=== PATIENT | female | born 1965 | race Caucasian/White ===

== ENCOUNTER 2023-06-18 13:00 | Outpatient (AMB) | payer BC, SELFPAY ==
--- NOTE | 2023-06-18 13:04 | HO.SPINEOV ---
Intake Intake Visit Reasons: cervical radiculopathy Intake Note: Mrs. Vanegas is here today c/o neck pain. MRI done @ [facility]/Did not bring disc. Sports Writer Required: No Assessment & Plan Assessment & Plan (1) Numbness of right hand: Code(s): R20.0 - Anesthesia of skin Plan Dear Joseph, Thank you for referring Naomi to our office today. She is a pleasant 57-year-old female who comes in today with a chief complaint of neck pain and numbness in her right hand. She reports that her primary complaint is the numbness in her right hand which became noticeable/problematic roughly 2 months ago. She has dealt with posterior neck pain for the last 10 years and feels that is remained relatively consistent to what it normally is. She also reports some associated weakness in her right hand. She reports that this numbness is worse at night and relieves if she wakes up and shakes her hand out. She states that she has attempted to take gabapentin, and cannabis to alleviate her symptoms. These remedies have only been somewhat helpful for her. She has been to care consultant since the symptoms developed and feels their services are not helpful. She reports that she currently has a left hip joint that is ?[id number]-xu-[id number]? and due to be replaced. She recently had a right-sided total hip completed 3 years ago. PMH: High blood pressure, afib on eliquis, GERD, hyperlipidemia, osteoarthritis. Right hip replacement 3 years ago. Social hx: Patient is a former smoker. Uses cannabis daily, reports no other substance use. Medications: eliquis, aspirin, omeprazole, biotin, multivitamin, atorvastatin, lisinopril, magnesium, fish oil. Allergies: Penicillin Physical exam: The patient has 5/5 strength in her upper and lower extremities. She has some sensational changes reported as numbness to palpation over the ventral surface of the right hand. Her reflexes are 1+ diminished over bilateral knees, 2+ intact elsewhere. She ambulates without a spastic gait, but does favor her right side. (+) Tinel's at wrist on the right side. (-) Tinel's at wrist on left side. (+) Phalen's on right side. (-) Phalen's on left side. (-) Duvall's, (-) clonus. Imaging review: MRI of the cervical spine completed at [facility] shows mild central canal stenosis at C3-4, and moderate-severe central canal stenosis at C4-5 C5-6. There is some mild-moderate posterior disc bulging at C4-5, C5-6 (worse at C5-6). No central cord signal change noted. Impression: Naomi is a pleasant 57-year-old female who comes in today with a chief complaint of chronic longstanding neck pain and new onset right hand numbness for the last 2 months. She reports that her right hand numbness is worse at night and resolves when shaking out her right hand. She endorses some shooting pains up her ventral forearm on the right side originating from her hand, and has a positive Tinel sign on the right alongside a positive Phalen sign on the right. Her history and physical exam are classic for carpal tunnel on the right side. The confounding factor for addressing this diagnosis alone is that she has severe spinal canal stenosis of the cervical spine at the levels described above. Although she has this significant stenosis, she has no real symptoms aside from cervical neck pain that has been present for the last 10 years. When discussing this with her, she reports that her right hand numbness is her primary concern. She has never had an EMG completed, and I believe this is the best 1st course to take. I will put an order for to get an EMG to confirm right-sided carpal tunnel syndrome, and I will review her imaging with the attending neurosurgeon to determine a plan going forward. We did discuss the possibility of a right-sided carpal tunnel release, and also extensively reviewed a C4-5, C5-6 ACDF, and posterior decompression of the cervical spine. Thank you for allowing us to care for your patient. The total time spent with this visit with this patient was 45 minutes reviewing history, physical exam, MRI imaging review, and implementation of treatment plan or further diagnostic testing Gibson Ortiz MD,PhD [facility] Orders: Orders NE electromyogram (EMG) Today R20.0 - Anesthesia of skin Coding Level of Care Code New Pt Level 4 (98744) Diagnoses Numbness of right hand R20.0
== END 2023-06-18 13:41 | disposition home or self-care (01) ==
PROVIDERS: PCP Internal Medicine; Referring Provider Physician Assistant; Visit Provider Physician Assistant
DX: R20.0 Anesthesia of skin (principal)
CPT/HCPCS: 99204

== ENCOUNTER → 2023-06-18 13:00 | Outpatient (BNVA) | payer BC, SELFPAY | PROVIDERS: PCP Internal Medicine; Referring Provider Physician Assistant; Visit Provider Physician Assistant ==

== ENCOUNTER 2023-06-30 09:09 | Outpatient (REF) | payer BC, SELFPAY ==
--- NOTE | 2023-06-30 09:13 | EMG_ITS ---
Please see scanned EMG / Nerve Conduction Report. MTDD
== END 2023-06-30 09:10 | disposition home or self-care (01) ==
LOC: HO.NEURO 09:09
PROVIDERS: PCP Internal Medicine; Visit Provider Physician Assistant
DX: R20.0 Anesthesia of skin (principal)
CPT/HCPCS: 95885; 95910

== ENCOUNTER → 2023-08-19 13:13 | Day surgery (SDC) | payer BC, SELFPAY ==
[2023-08-16 16:30] VITALS: BMI 25.7
--- NOTE | 2023-08-18 08:55 | HO.ANESPROP2 ---
Documented by User: Debi Lara NP 08/18/23 09:01 HPI - Anesthesia Eval Consult details Narrative: 57yo F for Right Carpal Tunnel Release Cardiac cleared Eliquis for afib IA 2020 2/2 coronary vasospasm. No ischemia PMFSH Active Problems Active Problems: All Active Problems (Updated 08/16/23 @ 16:28 by Faith Sarah RN) Numbness of right hand (Acute) Past Medical History Medical History (Updated 08/16/23 @ 16:28 by Faith Sarah RN) IFG (impaired fasting glucose) NAFLD (nonalcoholic fatty liver disease) Arthritis Back pain Numbness of right hand FOSTER (dyspnea on exertion) Sleep apnea Elevated cholesterol HTN (hypertension) PAF (paroxysmal atrial fibrillation) Surgical History Surgical History (Updated 08/16/23 @ 16:26 by Faith Sarah RN) History of endometrial ablation Hx of cardiac catheterization History of total right hip replacement Hx of colonoscopy Social History Social History (Updated 08/16/23 @ 16:30 by Faith Sarah RN) Household Members: Significant Other Housing: House Are you a primary managed care coordinator to a significant other at home: No Do you presently have visiting nurse or other home services: No Comment: uses cane or walker at times Patient Tobacco Use Status: Current everyday Tobacco user Tobacco use type: Cigarette Cigarette Packs Per Day: 1 Cigarettes Per Day: 20.0 Years Smoked: 30+ Smoked in Last 30 Days: Yes e-Cigarette/Vaping Use: Never Used Use of substances other than those prescribed or required for medical reasons: Yes Substance Use Type Other:: Gummies at times Substance Use Frequency: Occasionally Have you been hit, kicked, punched, or otherwise hurt by someone within the past year? If so, by whom?: No Are you DNR?: No Advance Directives: No Advance Directives Information Provided: Yes Advance Directives on File: No Healthcare Proxy: No Recently lost weight without trying: No Nutrition Risks: No Nutritional Risk Meds Allergies Allergy/AdvReac Type Severity Reaction Status Date / Time hydrocodone [From Vicodin] AdvReac Severe Nausea and Verified 08/16/23 16:20 Vomiting amoxicillin [From Augmentin] AdvReac Intermediate Diarrhea Verified 08/16/23 16:20 clavulanic acid AdvReac Intermediate Diarrhea Verified 08/16/23 16:20 [From Augmentin] Penicillins AdvReac Intermediate Diarrhea Verified 08/16/23 16:20 Home Medications Medication Instructions Recorded Confirmed Last Taken Type albuterol sulfate 90 mcg/actuation 2 puff inhalation Q4H PRN wheezing 08/16/23 08/16/23 Unknown History aerosol inhaler apixaban 5 mg tablet (Eliquis) 5 mg PO BID 08/16/23 08/16/23 08/18/23 History 5 mg aspirin 81 mg tablet,delayed 81 mg PO DAILY 08/16/23 08/16/23 Unknown History release atorvastatin 80 mg tablet 80 mg PO BEDTIME 08/16/23 08/16/23 Unknown History diltiazem HCl 240 mg 240 mg PO DAILY 08/16/23 08/16/23 08/19/23 History capsule,extended release 24 hr lisinopril 10 mg tablet 10 mg PO BEDTIME 08/16/23 08/16/23 Unknown History lorazepam 0.5 mg tablet 0.5 mg PO DAILY PRN anxiety 08/16/23 08/16/23 08/18/23 History 0.5 mg nitroglycerin 0.4 mg sublingual 0.4 mg sublingual DIRECTED PRN 08/16/23 08/16/23 Unknown History tablet Chest Pain omega 4-ynx-omv-fish oil 1,000 mg 1 cap PO DAILY 08/16/23 08/16/23 08/13/23 History (120 mg-180 mg) capsule (Fish Oil) omeprazole 40 mg capsule,delayed 40 mg PO DAILY 08/16/23 08/16/23 08/19/23 History release Exam Height,Weight and Vital Signs: Height 5 ft 6 in Weight 72.121 kg Narrative Narrative: EKG 07/2023 NSR @ 69 ECHO 07/2023 1. Nml LV size, wall thickness, and systolic function. LVEF 55-60%. Nml regional wall motion. Nml LV diastolic function 2. RV nml in size and systolic function 3. No hemodynmically significant valve dysfunction 4. No significant change from 2021 Carotid duplex 01/2023 L ICA <50% stenosis R ICA 50-69% Elevated flow velocity in R subclavian artery although no visual stenosis Assessment and Plan Assessment Anesthesia Assessment: Chart Reviewed Documented by User: Franck Thomas MD 08/19/23 14:20 [facility] Past Medical History Medical History (Updated 08/16/23 @ 16:28 by Faith Sarah RN) IFG (impaired fasting glucose) NAFLD (nonalcoholic fatty liver disease) Arthritis Back pain Numbness of right hand FOSTRE (dyspnea on exertion) Sleep apnea Elevated cholesterol HTN (hypertension) PAF (paroxysmal atrial fibrillation) Family History Family history of problems with anesthesia: No Surgical History Surgical History (Updated 08/16/23 @ 16:26 by Faith Sarah RN) History of endometrial ablation Hx of cardiac catheterization History of total right hip replacement Hx of colonoscopy History of Problems with Anesthesia: No Social History Social History (Updated 08/16/23 @ 16:30 by Faith Sarah RN) Household Members: Significant Other Housing: House Are you a primary managed care coordinator to a significant other at home: No Do you presently have visiting nurse or other home services: No Comment: uses cane or walker at times Patient Tobacco Use Status: Current everyday Tobacco user Tobacco use type: Cigarette Cigarette Packs Per Day: 1 Cigarettes Per Day: 20.0 Years Smoked: 30+ Smoked in Last 30 Days: Yes e-Cigarette/Vaping Use: Never Used Use of substances other than those prescribed or required for medical reasons: Yes Substance Use Type Other:: Gummies at times Substance Use Frequency: Occasionally Have you been hit, kicked, punched, or otherwise hurt by someone within the past year? If so, by whom?: No Are you DNR?: No Advance Directives: No Advance Directives Information Provided: Yes Advance Directives on File: No Healthcare Proxy: No Recently lost weight without trying: No Nutrition Risks: No Nutritional Risk Meds Allergies Allergy/AdvReac Type Severity Reaction Status Date / Time hydrocodone [From Vicodin] AdvReac Severe Nausea and Verified 08/16/23 16:20 Vomiting amoxicillin [From Augmentin] AdvReac Intermediate Diarrhea Verified 08/16/23 16:20 clavulanic acid AdvReac Intermediate Diarrhea Verified 08/16/23 16:20 [From Augmentin] Penicillins AdvReac Intermediate Diarrhea Verified 08/16/23 16:20 Home Medications Medication Instructions Recorded Confirmed Last Taken Type albuterol sulfate 90 mcg/actuation 2 puff inhalation Q4H PRN wheezing 08/16/23 08/16/23 Unknown History aerosol inhaler apixaban 5 mg tablet (Eliquis) 5 mg PO BID 08/16/23 08/16/23 08/18/23 History 5 mg aspirin 81 mg tablet,delayed 81 mg PO DAILY 08/16/23 08/16/23 Unknown History release atorvastatin 80 mg tablet 80 mg PO BEDTIME 08/16/23 08/16/23 Unknown History diltiazem HCl 240 mg 240 mg PO DAILY 08/16/23 08/16/23 08/19/23 History capsule,extended release 24 hr lisinopril 10 mg tablet 10 mg PO BEDTIME 08/16/23 08/16/23 Unknown History lorazepam 0.5 mg tablet 0.5 mg PO DAILY PRN anxiety 08/16/23 08/16/23 08/18/23 History 0.5 mg nitroglycerin 0.4 mg sublingual 0.4 mg sublingual DIRECTED PRN 08/16/23 08/16/23 Unknown History tablet Chest Pain omega 0-pxc-olo-fish oil 1,000 mg 1 cap PO DAILY 08/16/23 08/16/23 08/13/23 History (120 mg-180 mg) capsule (Fish Oil) omeprazole 40 mg capsule,delayed 40 mg PO DAILY 08/16/23 08/16/23 08/19/23 History release Exam Airway Mallampati Class: I TM Dist: >3cm Neck ROM: Full Heart: rrr Lungs: cta b/l Assessment and Plan Assessment Anesthesia Assessment: Anesthesia Plan Discussed Final Anesthetic Review Family History of Problems with Anesthesia: No History of Problems with Anesthesia: No NPO: Yes ASA Class: III Final Preanesthetic Review: No Changes in Pt Med Stat, Meds/Allgs Chart Reviewed, Consent Obtained/Reviewed and Anes Risks/Benef Reviewed Patient Risk: Intermediate Procedure Risk: Low Anesthetic Plan Anesthetic Plan: MAC:
--- NOTE | 2023-08-19 07:19 | P.HPSUR_ITS ---
Pre-Procedural Eval Section A - 24 Hr Update-Section A only Date of Service: 08/19/23 The patient is an INPATIENT: No Changes since office visit: No Cold of Flu in the past 2 weeks, No New Medical Problems, No Changes in Medication and No Patient answered all questions The patient has been examined within 24 hours of the surgical procedure. The History & Physical has been completed within 30 days and I have reviewed it.: No Section B - Complete if H&P > 30 days Chief Complaint: Carpal tunnel syndrome,Anesthesia of skin Allergies: Allergies Allergy/AdvReac Type Severity Reaction Status Date / Time hydrocodone [From Vicodin] AdvReac Severe Nausea and Verified 08/16/23 16:20 Vomiting amoxicillin [From Augmentin] AdvReac Intermediate Diarrhea Verified 08/16/23 16:20 clavulanic acid AdvReac Intermediate Diarrhea Verified 08/16/23 16:20 [From Augmentin] Penicillins AdvReac Intermediate Diarrhea Verified 08/16/23 16:20 Review of Systems Sugical H&P ROS: Negative: Constitution, Cardiovascular, Respiratory, Neurological, Psychiatric, Hem-Onc, Allergic/Immunologic, Gastrointestinal, G enitourinary, Musculoskeletal, Integumentary, Endocrine and Eyes/Ears/Nose/Throat Exam Surgical H&P Exam: Not Evaluated: HEENT, Not Evaluated: Heart, Not Evaluated: Lungs, Not Evaluated: Extremities, Not Evaluated: Abdomen, Not Evaluated: Skin and Not Evaluated: Neurological Plan Diagnosis/Plan: Unchanged right carpal tunnel release Time Spent With Patient Time: Total time managing care of this patient today _5___ minutes.
[2023-08-19 13:30] VITALS: BP 150/66; PULSE 85; RESP 18; TEMP 36.3; O2SAT 98; BMI 26.6
[2023-08-19] MEDS: methocarbamoL 750 MG TABLET PO (13:45)
[2023-08-19] MEDS: Lactated Ringers 1,000 ML 100 ML IVCONT (13:53)
--- NOTE | 2023-08-19 16:43 | PM.DS ---
DS: Providers Provider Date of Service: 08/19/23 Primary care physician: Skyler Arce MD DS: Summary Time Attestation Discharge coordination time: Less than 30 minutes Quality: Safe Use of Opioids Does Pt have an Active Cancer Diagnosis on the Problem List?: No Quality: Stroke Does the patient have a stroke diagnosis?: No Physical Exam Vital Signs: Vital Signs: Last Vital Signs Temp 97.3 F 08/19/23 13:30 Pulse 85 08/19/23 13:30 Resp 18 08/19/23 13:30 BP 150/66 H 08/19/23 13:30 Pulse Ox 98 08/19/23 13:30 O2 Del Method Room Air 08/19/23 13:30 BMI result Body Mass Index 26.6 Discharge Plan Discharge Patient Disposition: Home, Self-Care Referrals: Skyler Arce MD [Primary Care Provider] - 1 Week Discharge Medications: Continued atorvastatin 80 mg tablet 80 mg PO BEDTIME diltiazem HCl 240 mg capsule,extended release 24hr 240 mg PO DAILY lorazepam 0.5 mg tablet 0.5 mg PO DAILY PRN (Reason: anxiety) lisinopril 10 mg tablet 10 mg PO BEDTIME nitroglycerin 0.4 mg tablet, sublingual 0.4 mg sublingual DIRECTED PRN (Reason: Chest Pain) albuterol sulfate 90 mcg/actuation HFA aerosol inhaler 2 puff inhalation Q4H PRN (Reason: wheezing) omeprazole 40 mg Capsule,Delayed Release(Dr/Ec) 40 mg PO DAILY omega 5-nbu-anc-fish oil [Fish Oil] 1,000 mg (120 mg-180 mg) Capsule 1 cap PO DAILY Held aspirin 81 mg tablet,delayed release (DR/EC) 81 mg PO DAILY Hold Instructions: Resume on 08/19/23. 48-72 hours or as directed by prescriber Eliquis 5 mg tablet 5 mg PO BID Hold Instructions: Resume on 08/19/23. 48-72 hours or as directed by prescriber Discharge Orders: Discharge Order (Routine); Ordered 08/19/23 Ordered By: Gibson Ledesma Diet: Advance to usual diet Activity on Discharge: As tolerated Activity Restrictions/Additional Instructions: Discharge Instructions You may remove your almita wrap on post op day 3, as well as the dressing underneath it. There are sutures in your wound, and you will need these removed 10-14 days after surgery. Please call the office to arrange this visit, . You can use your hand as much as you like, however, please avoid straining or heavy lifting. It will help swelling in your hand to keep it elevated when you are not using it. You can shower on post op day 1, but please keep wound dry. You can drive when you feel comfortable and are off narcotics. If you experience any signs of infection such as fever, chills or redness/discharge from your wound,please call office right away.
--- NOTE | 2023-08-19 16:45 | P.OP_ITS ---
Operative Note Operative Note Date of Service: 08/19/23 Narrative: Diagnosis: Right carpal tunnel syndrome Procedure: Right median nerve release Surgeon: Hoang Ortiz MD PhD Description procedure: This patient is suffering from bilateral carpal tunnel syndrome. Today we will address her right side. The patient was offered a decompression of the median nerve. The procedure complications were explained. The patient was consented. She was brought to the operating room, where moderate sedation was applied. Prepping and draping was done followed by time- out. Marcaine was injected into the mid volar region. A midvolar incision was made. The ligamentum carpi transversum was opened sharply until the median nerve became visible. A Metzenbaum scissor was used to decompress the median nerve proximally and distally over its trajectory. Significant compression was present. Hemostasis was done. The incision was closed with 3 interrupted sutures. A compressive ROSEMARIE wrap was used for hemostasis. All sponge and needle counts were correct. Patient was transported to the recovery room. Anesthesia: Moderate sedation and local anesthetic Blood loss: Minimal Complications: None Disposition: Discharge home
[2023-08-19 16:49] VITALS: BP 118/51; PULSE 81; RESP 17; TEMP 36.9; O2SAT 97
[2023-08-19 17:04] VITALS: BP 108/52; PULSE 78; RESP 18; TEMP 36.7; O2SAT 96
== END | disposition home or self-care (01) ==
PROVIDERS: PCP Internal Medicine; Visit Provider Neurological Surgery
PROC: (CPT 64721; principal; 2023-08-19 15:20)
DX: G56.01 Carpal tunnel syndrome, right upper limb (principal); R20.0 Anesthesia of skin; R53.1 Weakness; I10 Essential (primary) hypertension; I48.0 Paroxysmal atrial fibrillation; K76.0 Fatty (change of) liver, not elsewhere classified; R73.01 Impaired fasting glucose; R06.00 Dyspnea, unspecified; G47.30 Sleep apnea, unspecified; Z79.01 Long term (current) use of anticoagulants; Z88.0 Allergy status to penicillin; Z88.1 Allergy status to other antibiotic agents; Z88.8 Allergy status to other drugs, medicaments and biological substances; Z98.890 Other specified postprocedural states; F17.210 Nicotine dependence, cigarettes, uncomplicated
CPT/HCPCS: 64721; J0131; J0690; J2250; J2704; J3010

== ENCOUNTER → 2023-08-19 13:13 | Outpatient (BNV) | payer BC, SELFPAY | PROVIDERS: PCP Internal Medicine; Visit Provider Physician Assistant | DX: G56.01 Carpal tunnel syndrome, right upper limb (principal) | CPT/HCPCS: 64721; 99499 ==

== ENCOUNTER 2023-11-24 14:58 | Outpatient (AMB) | payer BC, SELFPAY ==
--- NOTE | 2023-11-24 15:13 | A.SPINEOV_ITS ---
Intake Visit Reasons: shooting pains and is painful in the incision site Intake Note: Ms. Vanegas is here today c/o shooting pains in the incision site controller Required: No Allergies hydrocodone [From Vicodin] Adverse Reaction (Severe, Verified 08/16/23 16:20) Nausea and Vomiting amoxicillin [From Augmentin] Adverse Reaction (Intermediate, Verified 08/16/23 16:20) Diarrhea clavulanic acid [From Augmentin] Adverse Reaction (Intermediate, Verified 08/16/23 16:20) Diarrhea Penicillins Adverse Reaction (Intermediate, Verified 08/16/23 16:20) Diarrhea Assessment & Plan Assessment & Plan (1) Carpal tunnel syndrome of right wrist: Code(s): G56.01 - Carpal tunnel syndrome, right upper limb Category: Medical Plan Dear colleague, On 11/24/2023, I saw for follow-up Naomi Vanegas. She underwent a right carpal tunnel release in August for numbness of her hands. Unfortunately, the decompression has not given any relief as of yet. She is wondering if he could come from her cervical spine. Clinically she states the pain goes into her hand and up to elbow in addition to the numbness of all fingers. I do think it is carpal tunnel syndrome but I will review the MRI of the cervical spine again and will call the patient with the results. Assuming that it is not coming from cervical spine, then I would recommend to repeat an EMG in about 2-3 months to see if there is ongoing compression of the median nerve in the carpal tunnel. Thank you for allowing me take care of your patient. Hoang Ortiz MD, PhD Spine Fellowship Trained Neurosurgeon Director, [facility] Coding Level of Care Code Est Pt Level 2 (27266) Diagnoses Carpal tunnel syndrome of right wrist G56.01
== END 2023-11-24 15:33 | disposition home or self-care (01) ==
LOC: HO.HNS 15:11
PROVIDERS: PCP Internal Medicine; Visit Provider Neurological Surgery
DX: G56.01 Carpal tunnel syndrome, right upper limb (principal)
CPT/HCPCS: 99212

== ENCOUNTER → 2023-11-24 15:11 | Outpatient (BNVA) | payer BC, SELFPAY | PROVIDERS: PCP Internal Medicine; Visit Provider Neurological Surgery ==

== ENCOUNTER 2023-12-07 09:47 | Outpatient (AMB) | payer BC, SELFPAY ==
--- NOTE | 2023-12-07 10:02 | A.OFFVIS_ITS ---
Intake Visit Reasons: N/P Left hip pain Intake Note: Naomi is a 57 year old female who presents as a new patient with Left hip pain. Patient reports her pain has been going on for about 7 years and is a 7 on the 1-10 pain scale. The patient states that she underwent right total hip replacement surgery approximately [address] Adilson Aggarwal. She reports minimal discomfort in her right hip. She does walk with a cane. She describes her left hip pain as sharp and severe in nature. The patient has dif ficulty walking even short distances because of her left hip pain. At this point her left hip pain is interfering with her activities of daily living and her ability to sleep well through the night. Allergies hydrocodone [From Vicodin] Adverse Reaction (Severe, Verified 12/07/23 10:02) Nausea and Vomiting amoxicillin [From Augmentin] Adverse Reaction (Intermediate, Verified 12/07/23 10:02) Diarrhea clavulanic acid [From Augmentin] Adverse Reaction (Intermediate, Verified 12/07/23 10:02) Diarrhea Penicillins Adverse Reaction (Intermediate, Verified 12/07/23 10:02) Diarrhea Medication List - Last Reconciled 12/07/23 by Anuj Navarro MD albuterol sulfate 90 mcg/actuation 2 puffs inhalation Q4H PRN apixaban (Eliquis) 5 mg PO BID aspirin 81 mg PO DAILY atorvastatin 80 mg PO BEDTIME diltiazem HCl CD 240 mg PO DAILY lisinopril 10 mg PO BEDTIME lorazepam 0.5 mg PO DAILY PRN nitroglycerin 0.4 mg sublingual DIRECTED PRN omega 7-gnd-lst-fish oil 1,000 mg (120 mg-180 mg) (Fish Oil) 1 cap PO DAILY omeprazole 40 mg PO DAILY PFSH Medical History IFG (impaired fasting glucose) NAFLD (nonalcoholic fatty liver disease) Arthritis Back pain Numbness of right hand FOSTER (dyspnea on exertion) Sleep apnea Elevated cholesterol HTN (hypertension) PAF (paroxysmal atrial fibrillation) Surgical History History of endometrial ablation Hx of cardiac catheterization History of total right hip replacement Hx of colonoscopy Social History Household Members: Significant Other Housing: House Are you a primary career services director to a significant other at home: No Do you presently have visiting nurse or other home services: No Comment: uses cane or walker at times Patient Tobacco Use Status: Current everyday Tobacco user Tobacco use type: Cigarette Cigarette Packs Per Day: 1 Cigarettes Per Day: 20.0 Years Smoked: 30+ e-Cigarette/Vaping Use: Never Used Physical Exam Const Other: Well-nourished well-developed very friendly female awake alert and oriented x3 in no acute distress Extrem Other: Bilateral lower extremity examination shows good capillary refill, no skin lesions noted, normal sensation light touch Left hip examination shows decreased range of motion when compared to her right hip, pain with range of motion, no tenderness over her bursa Results Reviewed Results Reviewed: X-rays of the patient's left hip taken today show end-stage degenerative joint disease with grade 4 [id number] arthritis, subchondral sclerosis, osteophyte formation, no acute bony abnormalities Assessment & Plan Assessment & Plan (1) Arthritis of left hip: Code(s): M16.12 - Unilateral primary osteoarthritis, left hip Category: Medical Plan Ms. Vanegas presents with left hip pain due to end-stage degenerative joint disease. I had a lengthy discussion with the patient regarding the treatment options. At this point she has failed continued non operative treatments. The risks and benefits of left total hip replacement surgery were discussed at length with the patient. The patient is interested in proceeding with surgery. Thus, I will arrange for her to have a follow-up appointment with my partner, Dr. Westbrook, who performs this type of surgery. She will follow-up as instructed. Feel free to call me at any time should questions regarding her orthopedic management arise. I spent 22 minutes in reviewing the patient's records and imaging studies, seeing the patient and documenting in the medical record. Orders: Orders XR hip LT min 2V Today M25.552 - Pain in left hip Coding Level of Care Code New Pt Level 3 (41804) Diagnoses Arthritis of left hip M16.12
== END 2023-12-07 10:16 | disposition home or self-care (01) ==
PROVIDERS: PCP Internal Medicine; Visit Provider Orthopaedic Surgery
DX: M16.12 Unilateral primary osteoarthritis, left hip (principal)
CPT/HCPCS: 99204

== ENCOUNTER 2023-12-07 10:07 | Outpatient (REF) | payer BC, SELFPAY ==
--- NOTE | ~2023-12-07 | XR_ITS ---
EXAMINATION: XR HIP, LEFT CLINICAL INFORMATION: Pain in left hip COMPARISON: None available. TECHNIQUE: AP pelvis and single AP view of each hip FINDINGS: The bones are diffusely demineralized. There is a right total hip prosthesis with the acetabular component secured with a screw. No evidence of periprosthetic lucency. No fracture. There is severe narrowing of the superior-lateral aspect of the left hip with [id number] appearance and marked subchondral sclerosis in each articular surface. Heterotopic bone formation is noted lateral to the acetabulum. The sacroiliac joints and pubic symphysis are within normal limits. Several phleboliths are seen within the bladder. XR/XR hip LT min 2V IMPRESSION: 1. Right total hip prosthesis without evidence of hardware complication. 2. Severe osteoarthritis of the left hip.
== END 2023-12-07 10:08 | disposition home or self-care (01) ==
LOC: HO.HOSX 10:07
PROVIDERS: Visit Provider Orthopaedic Surgery
DX: M16.12 Unilateral primary osteoarthritis, left hip (principal)
CPT/HCPCS: 73502

== ENCOUNTER 2023-12-24 10:43 | Outpatient (AMB) | payer BC, SELFPAY ==
--- NOTE | 2023-12-24 10:45 | A.OFFVIS_ITS ---
Vital Signs 12/24/23 10:53 Height 5 ft 6 in Intake Visit Reasons: OV-Left hip pain-discuss hip replacement Intake Note: Naomi is a 57 year old female who presents today with a cane for a follow up visit for Left hip pain. Patient reports for about 20 years she's been having on going aching pain in the left hip. She states she the pain is affecting her daily living tasks. Numbness and tingling in the groin area which is radiating to the posterior aspect of her left hip and her left knee. She would like to discuss surgery. Hx of Right STEVE October of 2018. Hx of vaso spasms. Allergies hydrocodone [From Vicodin] Adverse Reaction (Severe, Verified 12/24/23 10:52) Nausea and Vomiting amoxicillin [From Augmentin] Adverse Reaction (Intermediate, Verified 12/24/23 10:52) Diarrhea clavulanic acid [From Augmentin] Adverse Reaction (Intermediate, Verified 12/24/23 10:52) Diarrhea Penicillins Adverse Reaction (Intermediate, Verified 12/24/23 10:52) Diarrhea HPI HPI OV-Left hip pain-discuss hip replacement: Details: Naomi is a 57 year old female who presents today with a cane for a follow up vis it for Left hip pain. Patient reports for about 20 years she's been having on going aching pain in the left hip. She states she the pain is affecting her daily living tasks. Numbness and tingling in the groin area which is radiating to the posterior aspect of her left hip and her left knee. She would like to discuss surgery. Hx of Right STEVE October of 2018. [facility] Medical History IFG (impaired fasting glucose) NAFLD (nonalcoholic fatty liver disease) Arthritis Back pain Numbness of right hand FOSTER (dyspnea on exertion) Sleep apnea Elevated cholesterol HTN (hypertension) PAF (paroxysmal atrial fibrillation) Surgical History History of endometrial ablation Hx of cardiac catheterization History of total right hip replacement Hx of colonoscopy Social History (Updated 12/24/23 @ 10:54 by MOUNIKA Pena) Household Members: Significant Other Housing: House Are you a primary hospice patient care secretary to a significant other at home: No Do you presently have visiting nurse or other home services: No Comment: uses cane or walker at times Patient Tobacco Use Status: Current everyday Tobacco user Tobacco use type: Cigarette Cigarette Packs Per Day: 1 Cigarettes Per Day: 20.0 Years Smoked: 30+ e-Cigarette/Vaping Use: Never Used Current occupational status: unemployed Physical Exam Extrem Other: Left hip with severely restricted range of motion. She has a 2+ dorsalis pedis pulse but severe gait antalgia and absolutely no internal rotation when flexed to 90 degrees. Her right hip has no pain with range of motion. Results Reviewed Results Reviewed: Radiographs were reviewed. There is a right total hip arthroplasty in adequate position and her left hip has severe osteoarthritis. Assessment & Plan Assessment & Plan (1) Arthritis of left hip: Code(s): M16.12 - Unilateral primary osteoarthritis, left hip Category: Medical Plan: This is a pleasant 57-year-old female with severe osteoarthritis of the left hip. She needs a hip replacement. She can not walk and can not be functional. She has pain and the quality of her life is severely diminished. She had a successful right hip replacement about 5 years ago. Of note she smokes and has a history of cardiac disease so she will need help with smoking cessation and need cardiac clearance. I discussed this with her. She is in agreement. In addition I discussed the risks, benefits and alternatives of arthroplasty including, but not limited to infection, pain, instability, fracture, need for further surgery as well as limb length discrepancy. I made a special note to describe the risk of limb length discrepancy with her because her right hip is marginally short already so I think it is likely that her left hip will be slightly long postoperatively. I also discussed the medical risks associated with surgery especially given her history of cardiac disease and smoking. She expressed understanding and we will proceed forward accordingly. Coding Level of Care Code Est Pt Level 4 (17017) Diagnoses Arthritis of left hip M16.12
== END 2023-12-24 11:05 | disposition home or self-care (01) ==
PROVIDERS: PCP Internal Medicine; Visit Provider Orthopaedic Surgery
DX: M16.12 Unilateral primary osteoarthritis, left hip (principal)
CPT/HCPCS: 99214

== ENCOUNTER 2024-07-17 08:44 | Outpatient (REF) | payer MEDICARE, MEDICAID, SELFPAY ==
--- NOTE | ~2024-07-17 | XR_ITS ---
EXAMINATION: XR PELVIS 1-2 VIEWS HISTORY: M25.559 - Pain in unspecified hip COMPARISON: Comparison is made with the prior examination dated 12/07/2023. FINDINGS: 3 AP views of the pelvis are submitted. The bones are osteopenic. The patient is again noted to be status post right total hip arthroplasty. The orthopedic hardware is unchanged in position. There is no radiographic evidence of loosening. There is severe osteoarthritis of the left hip with joint space narrowing, subchondral sclerosis, and subchondral cyst formation. There is also remodeling of the femoral head has been slight progression since the prior study. There is no fracture or dislocation. The soft tissues are unremarkable. XR/XR pelvis 1-2V IMPRESSION: Status post right total hip arthroplasty. Severe osteoarthritis of the left hip as described, with progression since the prior study. Electronically signed by: Remington Cm MD 07/19/2024 03:53 PM KYLE
== END 2024-07-17 08:45 | disposition home or self-care (01) ==
LOC: HO.HOSX 08:44
PROVIDERS: Visit Provider Orthopaedic Surgery
DX: M16.12 Unilateral primary osteoarthritis, left hip (principal); Z96.641 Presence of right artificial hip joint
CPT/HCPCS: 72170; 99212

== ENCOUNTER 2024-07-17 10:40 | Outpatient (AMB) | payer MEDICARE, MEDICAID, SELFPAY ==
[2024-07-17 11:01] VITALS: BMI 29.0
--- NOTE | 2024-07-17 11:01 | A.OFFVIS_ITS ---
Vital Signs 07/17/24 11:01 Height 5 ft 6 in Weight 180 lb BMI 29.0 Intake Visit Reasons: OV - Discuss L STEVE Booked 09/26/24 Intake Note: Naomi is a 58 year old female who present today for a follow up of her Left Hip OA to discuss Left STEVE. She is currently booked for 09/27/23,Previously discussed Smoking cessation. Patient reports that she is working on smoking cessation, she has decreased her smoking but is still intaking about 1 pack a day. She expresses concerns for her surgery arrival time as it is cerrently 10:10AM, she explains that she wakes up at 3am and without being able to eat or drink after midnight that it would be a nightmare Hx of Right STEVE October of 2018. Hx of vaso spasms. Allergies hydrocodone [From Vicodin] Adverse Reaction (Severe, Verified 12/24/23 10:52) Nausea and Vomiting amoxicillin [From Augmentin] Adverse Reaction (Intermediate, Verified 12/24/23 10:52) Diarrhea clavulanic acid [From Augmentin] Adverse Reaction (Intermediate, Verified 12/24/23 10:52) Diarrhea Penicillins Adverse Reaction (Intermediate, Verified 12/24/23 10:52) Diarrhea HPI HPI OV - Discuss L STEVE Booked 09/26/24: Details: Naomi is a 58 year old female who present today for a follow up of her Left Hip OA to discuss Left STEVE. She is currently booked for 09/27/23,Previously discussed Smoking cessation. Patient reports that she is working on smoking cessation, she has decreased her smoking but is still intaking less than a pack a day. She can not walk without pain. She limps everywhere. She feels quality of her life is diminished. She is scheduled for hip replacement in a proximally 2 and half months. [facility] Medical History IFG (impaired fasting glucose) NAFLD (nonalcoholic fatty liver disease) Arthritis Back pain Numbness of right hand FOSTER (dyspnea on exertion) Sleep apnea Elevated cholesterol HTN (hypertension) PAF (paroxysmal atrial fibrillation) Surgical History History of endometrial ablation Hx of cardiac catheterization History of total right hip replacement Hx of colonoscopy Social History (Updated 12/24/23 @ 10:54 by MOUNIKA Pena) Household Members: Significant Other Housing: House Are you a primary skin care therapist to a significant other at home: No Do you presently have visiting nurse or other home services: No Comment: uses cane or walker at times Patient Tobacco Use Status: Current everyday Tobacco user Tobacco use type: Cigarette Cigarette Packs Per Day: 1 Cigarettes Per Day: 20.0 Years Smoked: 30+ e-Cigarette/Vaping Use: Never Used Current occupational status: unemployed Physical Exam Vital Signs: BMI result Body Mass Index 29.0 Extrem Other: Left hip with severely restricted range of motion. She has a 2+ dorsalis pedis pulse but severe gait antalgia and absolutely no internal rotation when flexed to 90 degrees. Her right hip has no pain with range of motion. Results Reviewed Results Reviewed: I personally reviewed relevant radiographs. Severe left hip osteoarthritis Assessment & Plan Assessment & Plan (1) Arthritis of left hip: Code(s): M16.12 - Unilateral primary osteoarthritis, left hip Category: Medical Plan: This is a 50-year-old woman with severe arthritis of the left hip that is affecting her ability to ambulate and the quality of her life. She has decreasing smoking slowly but steadily. She has a history of cardiac catheterization. She needs to continue to decrease her tobacco usage. We will see her back in about 6 weeks' time. Orders: Orders XR pelvis 1-2V Today M25.559 - Pain in unspecified hip Coding Level of Care Code Est Pt Level 3 (12082) Diagnoses Arthritis of left hip M16.12
== END 2024-07-17 11:27 | disposition home or self-care (01) ==
PROVIDERS: PCP Internal Medicine; Visit Provider Orthopaedic Surgery
DX: M16.12 Unilateral primary osteoarthritis, left hip (principal)
CPT/HCPCS: 99213

== ENCOUNTER → 2024-08-29 08:30 | Outpatient (BNVA) | payer MEDICARE, MEDICAID, SELFPAY | DX: Z01.818 Encounter for other preprocedural examination (principal) ==

== ENCOUNTER 2024-09-21 08:37 | Outpatient (REF) | payer MEDICARE, MEDICAID, SELFPAY ==
--- NOTE | ~2024-09-21 | XR_ITS ---
EXAMINATION: XR HIP 2 OR MORE VIEWS LEFT HISTORY: M25.552 - Pain in left hip COMPARISON: Comparison is made with the prior examination of the pelvis dated 07/17/2024. FINDINGS: A single AP view of the pelvis and two views of the left hip are submitted. Osseous mineralization is normal. There is no fracture or dislocation. There is severe osteoarthritis with joint space narrowing, osteophyte formation, subchondral cyst formation, and remodeling of the femoral head. The patient is status post right total hip arthroplasty. The soft tissues are unremarkable. XR/XR hip LT min 2V IMPRESSION: Severe osteoarthritis as described. Electronically signed by: Remington Cm MD 09/21/2024 03:21 PM EDT
== END 2024-09-21 08:38 | disposition home or self-care (01) ==
LOC: HO.HOSX 08:37
PROVIDERS: Visit Provider Physician Assistant
DX: Z01.818 Encounter for other preprocedural examination (principal); M25.552 Pain in left hip; M16.12 Unilateral primary osteoarthritis, left hip
CPT/HCPCS: 73502

== ENCOUNTER 2024-09-21 09:04 | Outpatient (AMB) | payer MEDICARE, MEDICAID, SELFPAY ==
[2024-09-21 09:18] VITALS: BMI 29.0
--- NOTE | 2024-09-21 09:18 | A.OFFVIS_ITS ---
Vital Signs 09/21/24 09:18 Height 5 ft 6 in Weight 180 lb BMI 29.0 Intake Visit Reasons: Pre-Op: L STEVE w/NE 09/26/24 Intake Note: Naomi is a 58 year old female who presents today for a preoperative LT STEVE, DOS 09/26/24. Pain management agreement reviewed and signed. Allergies hydrocodone [From Vicodin] Adverse Reaction (Severe, Verified 09/21/24 09:25) Nausea and Vomiting amoxicillin [From Augmentin] Adverse Reaction (Intermediate, Verified 09/21/24 09:25) Diarrhea clavulanic acid [From Augmentin] Adverse Reaction (Intermediate, Verified 09/21/24 09:25) Diarrhea Penicillins Adverse Reaction (Intermediate, Verified 09/21/24 09:25) Diarrhea Medication List - Last Reconciled 09/21/24 by Jocelyn Felipe PA-C albuterol sulfate 90 mcg/actuation 2 puffs inhalation Q4H PRN apixaban (Eliquis) 5 mg PO BID aspirin 81 mg PO QAM atorvastatin 80 mg PO BEDTIME biotin 1,000 mcg PO DAILY zclhfvb-aemvzhean-fmjr 333-133-5 mg 1 tab PO DAILY cholecalciferol (vitamin D3) (Vitamin D3) 50 mcg PO DAILY diltiazem HCl CD 240 mg PO QAM lactobacillus combination no.4 (Probiotic) 3,000 mmu cells PO DAILY lisinopril 10 mg PO BEDTIME lorazepam 0.5 mg PO DAILY PRN multivitamin 1 tab PO QAM nicotine 1 patch topical DAILY nitroglycerin 0.4 mg sublingual DIRECTED PRN omega 6-rjk-skj-fish oil 1,000 (120-180) mg (Fish Oil) 1 cap PO QAM omeprazole 40 mg PO QAM [Raised toilet seat duration - 99 days] walker Folding Front wheeled walker HPI Comments Details: Ms Montez presents to the office today for preop visit. She is scheduled for left total hip arthroplasty with Dr. Westbrook. She continues to have ongoing pain and difficulty with ambulation in the left hip, which is affecting her quality of life; therefore, she has elected to move forward with surgery. [facility] Medical History (Updated 08/28/24 @ 12:49 by Marielle Vasquez RN) Cervical spinal stenosis PVD (peripheral vascular disease) Family history of anesthesia complication Pre-diabetes GERD (gastroesophageal reflux disease) PAF (paroxysmal atrial fibrillation) NSTEMI (non-ST elevated myocardial infarction) IFG (impaired fasting glucose) NAFLD (nonalcoholic fatty liver disease) Arthritis Back pain Numbness of right hand FOSTER (dyspnea on exertion) Sleep apnea Elevated cholesterol HTN (hypertension) Surgical History History of carpal tunnel release History of endometrial ablation Hx of cardiac catheterization History of total right hip replacement Hx of colonoscopy Social History Household Members: Significant Other Housing: House Are you a primary senior care specialist to a significant other at home: No Do you presently have visiting nurse or other home services: No Comment: uses cane or walker at times Patient Tobacco Use Status: Current everyday Tobacco user Tobacco use type: Cigarette Cigarette Packs Per Day: 1 Cigarettes Per Day: 20.0 Years Smoked: 42 e-Cigarette/Vaping Use: Never Used Current occupational status: unemployed Review of Systems Const All systems reviewed & are unremarkable except as noted in HPI and below Physical Exam Vital Signs: BMI result Body Mass Index 29.0 Const General: cooperative, healthy appearing, comfortable, no acute distress, well developed and alert Orientation/consciousness: patient oriented x3 HEENT Head: Yes normal to inspection, Yes normocephalic and Yes atraumatic Eyes General: appearance normal, both eyes and all related structures Neck Neck: Yes normal visual inspection and Yes no lymphadenopathy Resp Effort & Inspection: normal respiratory effort and able to speak in complete sentences Cardio Rate: regular rate Peripheral pulses: Peripheral pulses 2+ throughout GI Inspection: Yes normal to inspection Palpation (GI): Soft to palpation Skin General skin exam: no rashes or lesions noted Neuro General: patient oriented x3 Extrem Other: Left hip with severely restricted range of motion. She has a 2+ dorsalis pedis pulse but severe gait antalgia and absolutely no internal rotation when flexed to 90 degrees. Psych Appearance: grossly normal Mental Status: mental status grossly normal Results Reviewed Results Reviewed: Xrays were obtained in the office today and personally reviewed by me of the left hip for surgical planning Assessment & Plan Assessment & Plan (1) Arthritis of left hip: Code(s): M16.12 - Unilateral primary osteoarthritis, left hip Category: Medical Plan: I discussed in detail the procedure and what to expect pre and post operatively. We discussed the risks, benefits and alternatives to the surgery as well as the rehabilitation course. The risks; which include, but are not limited to infection, bleeding, nerve injury, ongoing pain, swelling, and stiffness, olivia operative risk of injury to bones and soft tissues, and blood clots. I?ve answered all questions and with their understanding they have consented to move forward with Left total hip arthroplasty with Dr. Westbrook She will hold Eliquis 48 hrs pre op, cont her low dose ASA Orders: Orders XR hip LT min 2V Today M25.552 - Pain in left hip PT Evaluation and Treatment Today Z96.642 - Presence of left artificial hip joint Coding Level of Care Code Est Pt Level 3 (91151) Complex EM visit Add On G2211 Diagnoses Arthritis of left hip M16.12
== END 2024-09-21 11:14 | disposition home or self-care (01) ==
LOC: HO.HOS 09:04
PROVIDERS: Visit Provider Physician Assistant
DX: M16.12 Unilateral primary osteoarthritis, left hip (principal)
CPT/HCPCS: 99024

== ENCOUNTER → 2024-09-21 09:12 | Outpatient (BNV) | payer MEDICARE, MEDICAID, SELFPAY | PROVIDERS: Visit Provider Radiology Diagnostic Radiology | DX: M16.12 Unilateral primary osteoarthritis, left hip (principal) | CPT/HCPCS: 73502 ==

== ENCOUNTER 2024-09-26 09:59 | Day surgery (SDC) | payer MEDICARE, MEDICAID, SELFPAY ==
[2024-08-28 12:15] VITALS: BP 109/55; PULSE 88; RESP 20; O2SAT 98; BMI 30.2
--- NOTE | 2024-08-28 12:32 | HO.ANESPROP2 ---
Documented by User: Debi Lara NP 08/28/24 12:43 HPI - Anesthesia Eval Consult details Narrative: 58yo F for Left Hip Total Replacement, 09/26/24 No recent illness No CP/SOB. FOSTER at baseline d/t skilled nursing smoking Cardiac optimized. Follows [facility] for: Carotid artery stenosis: moderate and unchanged. Routine surveillence 01/2025 PAF: Eliquis, diltiazem Hx NSTEMI 2020: Stable CAD HTN: stable, increased with pain Smoker: 1/2 ppd x 40+ years LORENA: No CPAP GERD: PPI controls PMFSH Active Problems Active Problems: All Active Problems Arthritis of left hip (Acute) Left hip pain (Acute) Carpal tunnel syndrome of right wrist (Acute) Numbness of right hand (Acute) Past Medical History Medical History Cervical spinal stenosis PVD (peripheral vascular disease) Family history of anesthesia complication Pre-diabetes GERD (gastroesophageal reflux disease) PAF (paroxysmal atrial fibrillation) NSTEMI (non-ST elevated myocardial infarction) IFG (impaired fasting glucose) NAFLD (nonalcoholic fatty liver disease) Arthritis Back pain Numbness of right hand FOSTER (dyspnea on exertion) Sleep apnea Elevated cholesterol HTN (hypertension) Family History Family history of problems with anesthesia: No Surgical History Surgical History History of carpal tunnel release History of endometrial ablation Hx of cardiac catheterization History of total right hip replacement Hx of colonoscopy History of Problems with Anesthesia: No Social History Social History Household Members: Significant Other Housing: House Are you a primary child care lead teacher to a significant other at home: No Do you presently have visiting nurse or other home services: No Comment: uses cane or walker at times Patient Tobacco Use Status: Current everyday Tobacco user Tobacco use type: Cigarette Cigarette Packs Per Day: 1 Cigarettes Per Day: 20.0 Years Smoked: 42 Smoked in Last 30 Days: Yes e-Cigarette/Vaping Use: Never Used Patient Interested in Nicotine Replacement: Yes Use of substances other than those prescribed or required for medical reasons: Yes Substance Use Type Other:: powder Substance Use Frequency: Occasionally Have you been hit, kicked, punched, or otherwise hurt by someone within the past year? If so, by whom?: No Spiritual Healthcare Practices: none Rastafarian Healthcare Practices: Islam-non practicing Cultural Healthcare Practices: none Are you DNR?: No Advance Directives: No Advance Directives Information Provided: Yes Advance Directives on File: No Recently lost weight without trying: No Eating poorly because of decreased appetite: No Nutrition Risks: No Nutritional Risk FDLMP: n/a Poor oral hygiene: No (one chipped tooth-upper front-left) Current occupational status: unemployed Meds Allergies Allergy/AdvReac Type Severity Reaction Status Date / Time hydrocodone [From Vicodin] AdvReac Severe Nausea and Verified 09/21/24 09:25 Vomiting amoxicillin [From Augmentin] AdvReac Intermediate Diarrhea Verified 09/21/24 09:25 clavulanic acid AdvReac Intermediate Diarrhea Verified 09/21/24 09:25 [From Augmentin] Penicillins AdvReac Intermediate Diarrhea Verified 09/21/24 09:25 Home Medications ?Medication ?Instructions ?Recorded ?Confirmed ?Last Taken ?Type albuterol sulfate 90 mcg/actuation 2 puff inhalation Q4H PRN wheezing 08/16/23 09/21/24 09/26/24 History aerosol inhaler apixaban 5 mg tablet (Eliquis) 5 mg PO BID 08/16/23 09/21/24 09/23/24 History aspirin 81 mg tablet,delayed 81 mg PO QAM 08/16/23 09/21/24 09/26/24 History release atorvastatin 80 mg tablet 80 mg PO BEDTIME 08/16/23 09/21/24 09/25/24 History diltiazem HCl 240 mg 240 mg PO QAM 08/16/23 09/21/24 09/26/24 History capsule,extended release 24 hr lisinopril 10 mg tablet 10 mg PO BEDTIME 08/16/23 09/21/24 09/25/24 History lorazepam 0.5 mg tablet 0.5 mg PO DAILY PRN anxiety 08/16/23 08/29/24 09/25/24 History nitroglycerin 0.4 mg sublingual 0.4 mg sublingual DIRECTED PRN 08/16/23 08/29/24 Unknown History tablet Chest Pain omega 0-gem-rhp-fish oil 1,000 mg 1 cap PO QAM 0208/29/24 09/17/24 History (120 mg-180 mg) capsule (Fish Oil) omeprazole 40 mg capsule,delayed 40 mg PO QAM 08/16/23 08/29/24 09/26/24 History release nicotine 21 mg/24 hr daily 1 patch topical DAILY 12/24/23 08/29/24 09/26/24 History transdermal patch biotin 1,000 mcg chewable tablet 1,000 mcg PO DAILY 08/28/24 08/29/24 09/17/24 History phuvusl-pznijqirn-uwov 333 mg-133 1 tab PO DAILY 08/28/24 08/29/24 09/17/24 History mg-5 mg tablet cholecalciferol (vitamin D3) 50 50 mcg PO DAILY 08/28/24 08/29/24 09/17/24 History mcg (2,000 unit) tablet (Vitamin D3) lactobacillus combination no.4 3 3,000 mmu cells PO DAILY 08/28/24 08/29/24 09/17/24 History billion cell capsule (Probiotic) multivitamin 1 tab PO QAM 08/28/24 08/29/24 09/17/24 History Exam Height,Weight and Vital Signs: Height 5 ft 6 in Weight 84.822 kg Last Vital Signs Pulse 88 08/28/24 12:15 Resp 20 08/28/24 12:15 BP 109/55 L 08/28/24 12:15 Pulse Ox 98 08/28/24 12:15 O2 Del Method Room Air 08/28/24 12:15 Narrative Narrative: EKG 07/2024 NSR @ 70 Airway TM Dist: >3cm Neck ROM: Limited (Cspine stenosis, no surgery) Loose/Missing/Broken Teeth: Yes (#9 small chip) Heart: RRR Lungs: CTAB Assessment and Plan Assessment Anesthesia Assessment: Anesthesia Plan Discussed, Smoking Cess. Discussed and PAT Visit Final Anesthetic Review Family History of Problems with Anesthesia: No History of Problems with Anesthesia: No Documented by User: Ava Christina MD 09/26/24 14:54 [facility] Past Medical History Medical History Cervical spinal stenosis PVD (peripheral vascular disease) Family history of anesthesia complication Pre-diabetes GERD (gastroesophageal reflux disease) PAF (paroxysmal atrial fibrillation) NSTEMI (non-ST elevated myocardial infarction) IFG (impaired fasting glucose) NAFLD (nonalcoholic fatty liver disease) Arthritis Back pain Numbness of right hand FOSTER (dyspnea on exertion) Sleep apnea Elevated cholesterol HTN (hypertension) Surgical History Surgical History History of carpal tunnel release History of endometrial ablation Hx of cardiac catheterization History of total right hip replacement Hx of colonoscopy Social History Social History Household Members: Significant Other Housing: House Are you a primary child care lead teacher to a significant other at home: No Do you presently have visiting nurse or other home services: No Comment: uses cane or walker at times Patient Tobacco Use Status: Current everyday Tobacco user Tobacco use type: Cigarette Cigarette Packs Per Day: 1 Cigarettes Per Day: 20.0 Years Smoked: 42 Smoked in Last 30 Days: Yes e-Cigarette/Vaping Use: Never Used Patient Interested in Nicotine Replacement: Yes Use of substances other than those prescribed or required for medical reasons: Yes Substance Use Type Other:: powder Substance Use Frequency: Occasionally Have you been hit, kicked, punched, or otherwise hurt by someone within the past year? If so, by whom?: No Spiritual Healthcare Practices: none Rastafarian Healthcare Practices: Islam-non practicing Cultural Healthcare Practices: none Are you DNR?: No Advance Directives: No Advance Directives Information Provided: Yes Advance Directives on File: No Recently lost weight without trying: No Eating poorly because of decreased appetite: No Nutrition Risks: No Nutritional Risk FDLMP: n/a Poor oral hygiene: No (one chipped tooth-upper front-left) Current occupational status: unemployed Meds Allergies Allergy/AdvReac Type Severity Reaction Status Date / Time hydrocodone [From Vicodin] AdvReac Severe Nausea and Verified 09/21/24 09:25 Vomiting amoxicillin [From Augmentin] AdvReac Intermediate Diarrhea Verified 09/21/24 09:25 clavulanic acid AdvReac Intermediate Diarrhea Verified 09/21/24 09:25 [From Augmentin] Penicillins AdvReac Intermediate Diarrhea Verified 09/21/24 09:25 Home Medications ?Medication ?Instructions ?Recorded ?Confirmed ?Last Taken ?Type albuterol sulfate 90 mcg/actuation 2 puff inhalation Q4H PRN wheezing 08/16/23 09/21/24 09/26/24 History aerosol inhaler apixaban 5 mg tablet (Eliquis) 5 mg PO BID 08/16/23 09/21/24 09/23/24 History aspirin 81 mg tablet,delayed 81 mg PO QAM 08/16/23 09/21/24 09/26/24 History release atorvastatin 80 mg tablet 80 mg PO BEDTIME 08/16/23 09/21/24 09/25/24 History diltiazem HCl 240 mg 240 mg PO QAM 08/16/23 09/21/24 09/26/24 History capsule,extended release 24 hr lisinopril 10 mg tablet 10 mg PO BEDTIME 08/16/23 09/21/24 09/25/24 History lorazepam 0.5 mg tablet 0.5 mg PO DAILY PRN anxiety 08/16/23 08/29/24 09/25/24 History nitroglycerin 0.4 mg sublingual 0.4 mg sublingual DIRECTED PRN 08/16/23 08/29/24 Unknown History tablet Chest Pain omega 1-vuf-upd-fish oil 1,000 mg 1 cap PO QAM 08/16/23 08/29/24 09/17/24 History (120 mg-180 mg) capsule (Fish Oil) omeprazole 40 mg capsule,delayed 40 mg PO QAM 08/16/23 08/29/24 09/26/24 History release nicotine 21 mg/24 hr daily 1 patch topical DAILY 12/24/23 08/29/24 09/26/24 History transdermal patch biotin 1,000 mcg chewable tablet 1,000 mcg PO DAILY 08/28/24 08/29/24 09/17/24 History auuwogt-etnfijjjn-gpth 333 mg-133 1 tab PO DAILY 08/28/24 08/29/24 09/17/24 History mg-5 mg tablet cholecalciferol (vitamin D3) 50 50 mcg PO DAILY 08/28/24 08/29/24 09/17/24 History mcg (2,000 unit) tablet (Vitamin D3) lactobacillus combination no.4 3 3,000 mmu cells PO DAILY 08/28/24 08/29/24 09/17/24 History billion cell capsule (Probiotic) multivitamin 1 tab PO QAM 08/28/24 08/29/24 09/17/24 History Exam Airway Mallampati Class: II Assessment and Plan Final Anesthetic Review NPO: Yes ASA Class: III Final Preanesthetic Review: No Changes in Pt Med Stat, Meds/Allgs Chart Reviewed, Consent Obtained/Reviewed and Anes Risks/Benef Reviewed Patient Risk: Intermediate Procedure Risk: Intermediate Anesthetic Plan Anesthetic Plan: GA Disposition: Standard PACU
[2024-08-28 13:55] LABS: Hematocrit 39.1 % (37.0-47.0); Hemoglobin 13.2 g/dl (12.0-16.0); Mean Corpuscular HGB Conc 33.8 g/dl (31.0-35.0); Mean Corpuscular Volume 91.8 fL (80.0-98.0); Mean Platelet Volume 9.5 fL (9.4-12.3); Platelet Count 374 X10*3/uL (160-400); Red Blood Count 4.26 X10*6/uL (4.20-5.50); White Blood Count 11.2 X10*3/uL (4.8-10.8)
[2024-08-28 14:20] LABS: Anion Gap 12 (12-20); Blood Urea Nitrogen 12 mg/dL (9-16); Calcium 9.6 mg/dL (8.4-10.2); Carbon Dioxide 25 mmol/L (22-29); Chloride 106 mmol/L (96-108); Creatinine Clr Calc Pharmacy 92.1; Estimated Glomerular Filt Rate > 60; Glucose Random 97 mg/dL (60-115); Potassium 4.1 mmol/L (3.3-5.1); Sodium 139 mmol/L (135-145)
[2024-08-28 15:02] LABS: MRSA Nasal PCR NEGATIVE (Negative); SA Nasal PCR NEGATIVE (Negative)
[2024-09-26] VITALS (14 sets, daily range): BP systolic 151–210; BP diastolic 65–81; PULSE 80–97; RESP 11–22; TEMP 36.3–36.8; O2SAT 91–96; BMI 29.7
--- NOTE | ~2024-09-26 | XR_ITS ---
EXAMINATION: XR PELVIS 1-2 VIEWS HISTORY: Left STEVE COMPARISON: Comparison is made with the prior examination dated 09/21/2024. FINDINGS: A single AP view of the pelvis. The patient is status post bilateral total hip arthroplasty. The left total hip prosthesis is new from the prior study and is in anatomic alignment on this single AP view. There is no fracture or dislocation. Postoperative changes are noted in the soft tissues. XR/XR pelvis 1-2V IMPRESSION: Status post bilateral total hip arthroplasty. Electronically signed by: Remington Cm MD 09/27/2024 07:34 AM EDT
[2024-09-26] MEDS: oxyCODONE HCl ER 10 MG TAB.ER.12H PO ×2 (10:13→22:35)
[2024-09-26] MEDS: Lactated Ringers 1,000 ML 100 ML IVCONT (10:14)
[2024-09-26] MEDS: vancomycin HCL 1,500 MG in 0.9 % Sodium Chloride 500 ML 333.33 MG IV (11:04)
--- NOTE | 2024-09-26 12:42 | P.DS_ITS ---
DS: Providers Provider Date of Service: 09/27/24 Date of discharge: 09/27/24 Primary care physician: Skyler Arce MD DS: Summary Hospital Course Hospital Course: The patient underwent a successful left total hip arthroplasty, they were transferred to PACU and then to the floor to recover. During their stay, their vitals were stable, afebrile at 98.6. Labs were unremarkable, H/H 10.4/29.5. POD 1 they Resumed Eliquis for DVT ppx then ransitioned to Eliquis 48hours post op, they also received Physical Therapy services twice a day. Prior to discharge, their dressing was clean dry and intact, and the plan was to be discharged home with VNA services. Time Attestation Discharge Coordination Time (in mins): 30 Quality: Safe Use of Opioids Does Pt have an Active Cancer Diagnosis on the Problem List?: No Quality: Stroke Does the patient have a stroke diagnosis?: No Physical Exam Vital Signs: Vital Signs: Last Vital Signs Pulse 88 08/28/24 12:15 Resp 20 08/28/24 12:15 BP 109/55 L 08/28/24 12:15 Pulse Ox 98 08/28/24 12:15 O2 Del Method Room Air 08/28/24 12:15 BMI result Body Mass Index 29.7 Const: General: cooperative, healthy appearing and no acute distress Resp: Effort & Inspection: normal respiratory effort and able to speak in complete sentences Cardio: Rate: regular rate Peripheral pulses: Peripheral pulses 2+ throughout GI: Palpation (GI): Soft to palpation Skin: Lesions: no lesions Rashes: no rashes Extrem: Other: left hip dressing is c/d/i. Able to dorsi/plantar flex. Calf is supple and nontender. Sensation intact. Pedal pulse intact. Discharge Plan Discharge Patient Disposition: Home Health Service Referrals: Jocelyn Felipe PA-C [Physician [employer]] - 10/12/24 12:45 pm Discharge Medications: New acetaminophen 325 mg Tablet 650 mg PO Q6H PRN (Reason: Pain, Mild 1-3,Fever,Headache) 30 Days Qty: 240 0RF celecoxib 200 mg Capsule 200 mg PO BID 30 Days Qty: 60 0RF docusate sodium 100 mg Capsule 100 mg PO BID 30 Days Qty: 60 0RF oxycodone 5 mg Tablet 5 mg PO Q4H PRN (Reason: Pain, Moderate(Pain Scale 4-6)) 7 Days Qty: 42 0RF Rx Instructions: Partial Fill upon patient request. nicotine 21 mg/24 hr Patch 24 Hour 21 mg transdermal DAILY 30 Days Qty: 30 0RF Continued (DME) walker [facility] [place], [place] See Rx Instructions .MEDSUPPLY Qty: 1 0RF Rx Instructions: Folding Front wheeled walker (DME) Raised toilet seat See Rx Instructions .ROUTE .MEDSUPPLY Qty: 1 0RF Rx Instructions: duration - 99 days atorvastatin 80 mg tablet 80 mg PO BEDTIME diltiazem HCl 240 mg capsule,extended release 24hr 240 mg PO QAM aspirin 81 mg tablet,delayed release (DR/EC) 81 mg PO QAM lorazepam 0.5 mg tablet 0.5 mg PO DAILY PRN (Reason: anxiety) lisinopril 10 mg tablet 10 mg PO BEDTIME nitroglycerin 0.4 mg tablet, sublingual 0.4 mg sublingual DIRECTED PRN (Reason: Chest Pain) albuterol sulfate 90 mcg/actuation HFA aerosol inhaler 2 puff inhalation Q4H PRN (Reason: wheezing) Eliquis 5 mg tablet 5 mg PO BID omega 8-inj-gwx-fish oil [Fish Oil] 1,000 mg (120 mg-180 mg) Capsule 1 cap PO QAM multivitamin Tablet 1 tab PO QAM mmmxzvp-gjioiubwp-sspa 333-133-5 mg Tablet 1 tab PO DAILY cholecalciferol (vitamin D3) [Vitamin D3] 50 mcg (2,000 unit) Tablet 50 mcg PO DAILY Probiotic 3 billion cell Capsule 3,000 mmu cells PO DAILY Rx Instructions: administer with a meal biotin 1,000 mcg Tablet,Chewable 1,000 mcg PO DAILY omeprazole 20 mg Tablet,Delayed Release (Dr/Ec) 20 mg PO DAILY Discontinued nicotine 21 mg/24 hr patch 24 hour 1 patch topical DAILY Patient Comments: offpatient Discharge Orders: Discharge Order (Routine); Ordered 09/27/24 Ordered By: Zofia Gates Diet: Advance to usual diet Activity on Discharge: Use cane or walker Activity Restrictions/Additional Instructions: Physical Therapy for total hip arthroplasty: posterior precautions, gait training, ROM, strength Limit stair climbing No showering, no tub bath-keep dressing clean, dry and intact No driving x6 weeks Resume Eiquis Follow up with [facility] in 2 weeks Print Language: [place]
--- NOTE | 2024-09-26 12:44 | P.F2F_ITS ---
Service Date Service Date: 09/26/24 Encounter Date of encounter: 09/27/24 Reasons for Services Signs and symptoms assessed: s/p LTHA Pt. is considered homebound due to recent surgery. Unable to drive, poor balance, poor gait mechanics. Reason for physical therapy: home safety and mobility, therapeutic exercises, restore joint function, gait/transfer training and ADL training Reason for occupational therapy: home safety and mobility, therapeutic exercises, restore joint function, gait/transfer training and ADL training Homebound: Leaving the home is medically contraindicated at this time without the asist of a device and/or another person due th the listed conditions above and below. Reason homebound: unsteady gait / fall risk, leg weakness, pain with ambulation, pain with transfers, poor balance / fall risk and unable to drive Certification: Based on the above findings, I certify that this patient is confined to the home and needs intermittent senior care care, physical therapy and/or speech therapy, or continues to need occupational therapy. The patient is under my care, and I have initiated the establishment of the plan of care. The patient will be followed by a physician who will periodically review the plan of care. Time Spent With Patient Time: Total time managing care of this patient today ____ minutes.
[2024-09-26] MEDS: Acetaminophen 1,000 MG/100 ML PIGGYBACK 400 MG IV (13:00)
--- NOTE | 2024-09-26 13:29 | PC.NURSE ---
medicated with acetaminophen iv per anesthesia order for pain 12/12 pwd speaking in full sentences pt teary
--- NOTE | 2024-09-26 13:39 | PC.NURSE ---
h/a better 1-2/10 resting comfortably after meds aware careplan
--- NOTE | 2024-09-26 14:54 | MHC.SHP ---
Pre-Procedural Eval Section A - 24 Hr Update-Section A only Date of Service: 09/26/24 The patient is an INPATIENT: No Changes since office visit: No Cold of Flu in the past 2 weeks, No New Medical Problems, No Changes in Medication and No Patient answered all questions The patient has been examined within 24 hours of the surgical procedure. The History & Physical has been completed within 30 days and I have reviewed it.: Yes Section B - Complete if H&P > 30 days Chief Complaint: Unilateral primary osteoarthritis, left hip Allergies: Allergies Allergy/AdvReac Type Severity Reaction Status Date / Time hydrocodone [From Vicodin] AdvReac Severe Nausea and Verified 09/21/24 09:25 Vomiting amoxicillin [From Augmentin] AdvReac Intermediate Diarrhea Verified 09/21/24 09:25 clavulanic acid AdvReac Intermediate Diarrhea Verified 09/21/24 09:25 [From Augmentin] Penicillins AdvReac Intermediate Diarrhea Verified 09/21/24 09:25 Plan I have reviewed the history and physical and performed a pertinent physical examination on my patient. No changes have occurred unless specified. Time Spent With Patient Time: Total time managing care of this patient today ____ minutes.
--- NOTE | 2024-09-26 15:45 | P.CONAN_ITS ---
[facility] Active Problems Active Problems: All Active Problems Arthritis of left hip (Acute) Left hip pain (Acute) Carpal tunnel syndrome of right wrist (Acute) Numbness of right hand (Acute) Past Medical History Medical History Cervical spinal stenosis PVD (peripheral vascular disease) Family history of anesthesia complication Pre-diabetes GERD (gastroesophageal reflux disease) PAF (paroxysmal atrial fibrillation) NSTEMI (non-ST elevated myocardial infarction) IFG (impaired fasting glucose) NAFLD (nonalcoholic fatty liver disease) Arthritis Back pain Numbness of right hand FOSTER (dyspnea on exertion) Sleep apnea Elevated cholesterol HTN (hypertension) Functional capacity: independent ambulation Patient : No Family History Family history of problems with anesthesia: No Surgical History Surgical History History of carpal tunnel release History of endometrial ablation Hx of cardiac catheterization History of total right hip replacement Hx of colonoscopy History of Problems with Anesthesia: No Social History Social History Household Members: Significant Other Housing: House Are you a primary behavioral health care coordinator to a significant other at home: No Do you presently have visiting nurse or other home services: No Comment: uses cane or walker at times Patient Tobacco Use Status: Current everyday Tobacco user Tobacco use type: Cigarette Cigarette Packs Per Day: 1 Cigarettes Per Day: 20.0 Years Smoked: 42 Smoked in Last 30 Days: Yes e-Cigarette/Vaping Use: Never Used Patient Interested in Nicotine Replacement: Yes Use of substances other than those prescribed or required for medical reasons: Yes Substance Use Type Other:: powder Substance Use Frequency: Occasionally Have you been hit, kicked, punched, or otherwise hurt by someone within the past year? If so, by whom?: No Spiritual Healthcare Practices: none Shinto Healthcare Practices: Methodist-non practicing Cultural Healthcare Practices: none Are you DNR?: No Advance Directives: No Advance Directives Information Provided: Yes Advance Directives on File: No Recently lost weight without trying: No Eating poorly because of decreased appetite: No Nutrition Risks: No Nutritional Risk FDLMP: n/a Poor oral hygiene: No (one chipped tooth-upper front-left) Current occupational status: unemployed Meds Allergies Allergy/AdvReac Type Severity Reaction Status Date / Time hydrocodone [From Vicodin] AdvReac Severe Nausea and Verified 09/21/24 09:25 Vomiting amoxicillin [From Augmentin] AdvReac Intermediate Diarrhea Verified 09/21/24 09:25 clavulanic acid AdvReac Intermediate Diarrhea Verified 09/21/24 09:25 [From Augmentin] Penicillins AdvReac Intermediate Diarrhea Verified 09/21/24 09:25 Active Medications: Current Medications Albuterol Sulfate (Albuterol Sulfate (0.083%) 2.5 Mg/3 Ml Vial.Neb) 2.5 mg INHALE ONCE PRN PRN Reason: Shortness of Breath/Wheezing Hydromorphone HCl (Hydromorphone Hcl 0.5 Mg/0.5 Ml Syringe) 0.25 mg IVPUSH Q5M PRN PRN Reason: Pain, Moderate to Severe (Pain Scale 4-10) Stop: 09/26/24 20:54 Lactated Ringer's (Lr) 1,000 mls @ 100 mls/hr IVCONT .Q10H MARICRUZ Last Admin: 09/26/24 10:14 Dose: 100 mls/hr Naloxone HCl (Naloxone Hcl 0.4 Mg/Ml Vial) 0.04 mg IVPUSH Q5M PRN PRN Reason: Excessive sedation or RR < 8 Ondansetron HCl (Ondansetron Hcl 4 Mg/2 Ml Vial) 4 mg IVPUSH ONCE PRN PRN Reason: Nausea and Vomiting Stop: 09/26/24 20:54 Home Medications ?Medication ?Instructions ?Recorded ?Confirmed ?Last Taken ?Type albuterol sulfate 90 mcg/actuation 2 puff inhalation Q4H PRN wheezing 08/16/23 09/21/24 09/26/24 History aerosol inhaler apixaban 5 mg tablet (Eliquis) 5 mg PO BID 08/16/23 09/21/24 09/23/24 History aspirin 81 mg tablet,delayed 81 mg PO QAM 08/16/23 09/21/24 09/26/24 History release atorvastatin 80 mg tablet 80 mg PO BEDTIME 08/16/23 09/21/24 09/25/24 History diltiazem HCl 240 mg 240 mg PO QAM 08/16/23 09/21/24 09/26/24 History capsule,extended release 24 hr lisinopril 10 mg tablet 10 mg PO BEDTIME 08/16/23 09/21/24 09/25/24 History lorazepam 0.5 mg tablet 0.5 mg PO DAILY PRN anxiety 08/16/23 08/29/24 09/25/24 History nitroglycerin 0.4 mg sublingual 0.4 mg sublingual DIRECTED PRN 08/16/23 08/29/24 Unknown History tablet Chest Pain omega 2-dzb-xea-fish oil 1,000 mg 1 cap PO QAM 08/16/23 08/29/24 09/17/24 History (120 mg-180 mg) capsule (Fish Oil) omeprazole 40 mg capsule,delayed 40 mg PO QAM 08/16/23 08/29/24 09/26/24 History release nicotine 21 mg/24 hr daily 1 patch topical DAILY 12/24/23 08/29/24 09/26/24 History transdermal patch biotin 1,000 mcg chewable tablet 1,000 mcg PO DAILY 08/28/24 08/29/24 09/17/24 History usiqcxm-rlgpzqnzo-smwy 333 mg-133 1 tab PO DAILY 08/28/24 08/29/24 09/17/24 History mg-5 mg tablet cholecalciferol (vitamin D3) 50 50 mcg PO DAILY 08/28/24 08/29/24 09/17/24 History mcg (2,000 unit) tablet (Vitamin D3) lactobacillus combination no.4 3 3,000 mmu cells PO DAILY 08/28/24 08/29/24 09/17/24 History billion cell capsule (Probiotic) multivitamin 1 tab PO QAM 08/28/24 08/29/24 09/17/24 History Exam Height,Weight and Vital Signs: Height 5 ft 6 in Weight 83.5 kg Last Vital Signs Pulse 88 08/28/24 12:15 Resp 20 08/28/24 12:15 BP 109/55 L 08/28/24 12:15 Pulse Ox 98 08/28/24 12:15 O2 Del Method Room Air 08/28/24 12:15 Pertinent Lab Results Pertinent Lab Results: Laboratory Tests 08/28/24 08/28/24 09/21/24 12:25 13:09 10:36 WBC 11.2 H RBC 4.26 Hgb 13.2 Hct 39.1 MCV 91.8 MCH 31.0 MCHC 33.8 RDW 12.0 Plt Count 374 MPV 9.5 Absolute Nucleated RBC 0.000 Nucleated RBC % (auto) 0.0 Sodium 139 Potassium 4.1 Chloride 106 Carbon Dioxide 25 Anion Gap 12 BUN 12 Creatinine 0.73 Estim Creat Clear Calc 92.1 Estimated GFR > 60 Random Glucose 97 Calcium 9.6 Nasal Screen MRSA (PCR) NEGATIVE Nasal S. aureus Screen NEGATIVE Nasal MRSA/S.aureus Interp SEE NOTE Blood Type O Positive Antibody Screen NEGATIVE Airway Mallampati Class: III TM Dist: >3cm Neck ROM: Full Heart: RRR Lungs: CTA Assessment and Plan Assessment Anesthesia Assessment: Anesthesia Plan Discussed, Smoking Cess. Discussed and Chart Reviewed Final Anesthetic Review Family History of Problems with Anesthesia: No History of Problems with Anesthesia: No NPO: Yes ASA Class: III Final Preanesthetic Review: Meds/Allgs Chart Reviewed, Consent Obtained/Reviewed and Anes Risks/Benef Reviewed Patient Risk: Intermediate Procedure Risk: Intermediate Anesthetic Plan Anesthetic Plan: GA Disposition: Standard PACU
--- NOTE | 2024-09-26 17:33 | P.BOP_ITS ---
Brief Operative Note Date of Service: 09/26/24 Pre-op diagnosis: Left hip OA Post-op diagnosis: same Procedure: Left STEVE Implants: [place] Trident 2 54 [place] Accoalde 2 #6 127 with +0/ 36 ceramic Surgeon: Ethan Westbrook MD Anesthesia: GETA and local Was an Health And Wellness Coordinator used for this Procedure?: Yes Health And Wellness Coordinator: Jocelyn Felipe Estimated blood loss (mL): 200 IV fluids (mL): 1,200 Pathology: other Condition: stable Disposition: PACU
[2024-09-26] MEDS: HYDROmorphone HCl 0.5 MG/0.5 ML SYRINGE 0.25 MG IVPUSH ×2 (18:15→18:20)
[2024-09-26] MEDS: droPERidol 5 MG/2 ML VIAL 0.625 MG IVPUSH (18:27)
--- NOTE | 2024-09-26 18:39 | W.PM.OPN ---
Operative Note Operative Note Date of Service: 09/26/24 Narrative: Date of Service: 09/26/24 Pre-op diagnosis: Left hip OA Post-op diagnosis: same Procedure: Left STEVE Implants: [place] Trident 2 54 [place] Accoalde 2 #6 127 with +0/ 36 ceramic Surgeon: Ethan Westbrook MD Anesthesia: GETA and local Was an Flexographic Press Set Up Operator used for this Procedure?: Yes Flexographic Press Set Up Operator: Jocelyn Felipe Estimated blood loss (mL): 200 IV fluids (mL): 1,200 Pathology: other Condition: stable Disposition: PACU Patient was brought into the operating room and placed in the right lateral decubitus position. All bony prominences were well padded and the limb was prepped and draped in standard sterile fashion. A time-out was called to identify proper site procedure proper surgeon IV antibiotics and 1 g of tranexamic acid were administered. I began by making a curvilinear incision over the posterolateral aspect of the greater trochanter. Dissection was taken down to the tensor fascia which was incised in line with the incision and a Charnley retractor was placed. Cautery was used to maintain hemostasis. The hip was internally rotated and the external rotators were identified. The vessels were cauterized and a full-thickness capsular/external rotator layer was developed starting just proximal to the piriformis. This layer was tagged and a dull Hohmann retractor was placed underneath the neck in the hip was dislocated. A neck cut was made 1 cm proximal to the lesser trochanter and the head and neck were removed and measured ~50mm on the back table. The head was deformed and eburnated. I then removed the labrum and cauterized the fovea. I started with a 44 reamer and medialized to the inner table. I sequentially reamed up to a size 54 and impacted a 54mm cup at 45 degrees of inclination and 25 degrees of version. 2 acetabular screws were palced in the superior safe zone using standard AO technique. I then placed a 20 deg posterior lipped liner and turned my attention to the femur. I identified the piriformis insertion and used this as a starting point for my lamin cutter. The medius tendon was protected with a Hibs retractor. A Charnley awl was inserted in the canal and a curved curette used to remove the lateral bone. I irrigated copiously. I then sequentially broached in the patient's natural version to a size 6 and placed my trial implants. I used a #6/127/+0 based on my pre-operative template. I removed all instrumentation and copiously irrigated. I placed my final femoral implant and again took the hip through range of motion and was satisfied with the stability and length. The final +0 implant was impacted in place and the hip reduced. I then irrigated copiously and placed 1 g of local tranexamic acid. I performed a capsular closure with 2.0 fiberwire, Kiana's fascia with 0 Vicryl, subcuticular with 2-0 Vicryl and the skin with wallace. Patient was placed into a sterile dressing. Patient was extubated brought to the recovery room in stable condition. There were no known complications.
--- NOTE | 2024-09-26 18:47 | PHA.MEDREC ---
Addendum entered by Luz Maria Boudreaux RPh 09/26/24 18:52: [facility] REVIEWED Original Note: Pharmacy Consult ? Medication Reconciliation Pharmacy has completed the medication reconciliation. Reviewed med rec done by nursing. Nurse Belcher confirmed patient takes omeprazole OTC dose.
--- NOTE | 2024-09-26 21:44 | P.CONHOSP_ITS ---
History of Present Illness Data of Consult Service Date: 09/26/24 Requesting physician: Jocelyn Felipe Primary Care Provider: Skyler Arce MD HPI Reason for consult: medical management Patient is a 58-year-old female with a past medical history significant for PVD, pre DM, GERD, paroxysmal AFib, NSTEMI, C-spine stenosis, NAFLD, LORENA, HLD and HTN, who is now s/p left STEVE today. The surgery went without complications. The patient is resting in bed comfortably without any complaints including chest pain, nausea, vomiting, abdominal pain, numbness or tingling. She is not having any shortness of breath and has no current concerns. She does not express any significant pain due to the surgery. Blood pressures have been elevated throughout the day, she reports last taking her lisinopril last night. Review of Systems 2 Constitutional: Constitutional: Denies chills, Denies fatigue, Denies fever(s) and Denies headache(s) Eyes: Eyes: Denies change in vision and Denies photophobia ENT: Denies headache(s), Denies nasal congestion, Denies nasal discharge and Denies sore throat Cardiovascular: Cardiovascular: Denies chest pain, Denies rapid heart rate, Denies lightheadedness and Denies dyspnea Respiratory: Respiratory: Denies chest congestion, Denies cough, Denies dyspnea and Denies wheezing Gastrointestinal: Gastrointestinal: Denies nausea and Denies vomiting Genitourinary: Genitourinary: Denies dysuria and Denies urinary urgency Musculoskeletal: Musculoskeletal: Reports as per HPI Integumentary/Breasts: Skin/Breast: Denies rash Neurologic: Denies confusion and Denies headache(s) Psychiatric: Psychiatric: Denies confusion Endocrine: Endocrine: Denies fatigue Hematologic/Lymphatic: Hematologic/Lymphatic: Denies easy bleeding Allergic/Immunologic: Allergic/Immunologic: Denies wheezing [facility] Medical History (Updated 09/26/24 @ 21:52 by Linda Son PA-C) Cervical spinal stenosis PVD (peripheral vascular disease) Family history of anesthesia complication Pre-diabetes GERD (gastroesophageal reflux disease) PAF (paroxysmal atrial fibrillation) NSTEMI (non-ST elevated myocardial infarction) IFG (impaired fasting glucose) NAFLD (nonalcoholic fatty liver disease) Arthritis Back pain Numbness of right hand FOSTER (dyspnea on exertion) Sleep apnea Elevated cholesterol HTN (hypertension) Functional capacity: independent ambulation Surgical History (Updated 09/26/24 @ 21:52 by Linda Son PA-C) History of carpal tunnel release History of endometrial ablation Hx of cardiac catheterization History of total right hip replacement Hx of colonoscopy Social History Household Members: Significant Other Housing: House Are you a primary post acute care nurse practitioner to a significant other at home: No Do you presently have visiting nurse or other home services: No Comment: uses cane or walker at times Patient Tobacco Use Status: Current everyday Tobacco user Tobacco use type: Cigarette Cigarette Packs Per Day: 1 Cigarettes Per Day: 20.0 Years Smoked: 42 Smoked in Last 30 Days: Yes e-Cigarette/Vaping Use: Never Used Patient Interested in Nicotine Replacement: Yes Use of substances other than those prescribed or required for medical reasons: Yes Substance Use Type Other:: powder Substance Use Frequency: Occasionally Have you been hit, kicked, punched, or otherwise hurt by someone within the past year? If so, by whom?: No Spiritual Healthcare Practices: none Muslim Healthcare Practices: Rastafari-non practicing Cultural Healthcare Practices: none Are you DNR?: No Advance Directives: No Advance Directives Information Provided: Yes Advance Directives on File: No Recently lost weight without trying: No Eating poorly because of decreased appetite: No Nutrition Risks: No Nutritional Risk Patient : No FDLMP: n/a Poor oral hygiene: No (one chipped tooth-upper front-left) Current occupational status: unemployed Meds Allergies Allergy/AdvReac Type Severity Reaction Status Date / Time hydrocodone [From Vicodin] AdvReac Severe Nausea and Verified 09/21/24 09:25 Vomiting amoxicillin [From Augmentin] AdvReac Intermediate Diarrhea Verified 09/21/24 09:25 clavulanic acid AdvReac Intermediate Diarrhea Verified 09/21/24 09:25 [From Augmentin] Penicillins AdvReac Intermediate Diarrhea Verified 09/21/24 09:25 Active Medications: Current Medications Acetaminophen (Acetaminophen 325 Mg Tablet) 650 mg PO Q6H PRN PRN Reason: Pain, Mild 1-3,fever,headache Albuterol Sulfate (Albuterol Sulfate 90 Mcg 8 Gm Inhaler) 2 puff INHALE Q4H PRN PRN Reason: wheezing Apixaban (Apixaban 5 Mg Tablet) 5 mg PO BID [facility] Aspirin (Aspirin Enteric Coated 81 Mg Tablet.) 81 mg PO DAILY [facility] Celecoxib (Celecoxib 200 Mg Capsule) 200 mg PO BID [facility] Diltiazem HCl (Diltiazem Hcl Cd 240 Mg Cap.Er.Deg) 240 mg PO DAILY [facility]; Protocol Docusate Sodium (Docusate Sodium 100 Mg Capsule) 100 mg PO BID [facility] Enoxaparin Sodium (Enoxaparin Sodium 40 Mg/0.4 Ml Syringe) 40 mg SUBCUT Q24H [facility] Stop: 09/28/24 16:31 Hydromorphone HCl (Hydromorphone Hcl 0.5 Mg/0.5 Ml Syringe) 0.25 mg IVPUSH Q4H PRN; Protocol PRN Reason: Pain, Severe (Pain Scale 7-10) Lactated Ringer's (Lr) 1,000 mls @ 100 mls/hr IVCONT .Q10H [facility] Stop: 09/27/24 08:00 Last Admin: 09/26/24 20:25 Dose: Not Given Vancomycin HCl 1,000 mg/ (Sodium Chloride) 270 mls @ 270 mls/hr IV POSTOP ONE Stop: 09/26/24 23:59 Lisinopril (Lisinopril 10 Mg Tablet) 10 mg PO BEDTIME [facility]; Protocol Lorazepam (Lorazepam 0.5 Mg Tablet) 0.5 mg PO DAILY PRN PRN Reason: anxiety Nicotine (Nicotine 21 Mg Patch.Td24) 21 mg TRANSDERMA DAILY [facility] Nitroglycerin (Nitroglycerin 0.4 Mg Tab.Subl) 0.4 mg SUBLINGUAL Q5MX3 PRN PRN Reason: Chest Pain Omeprazole (Omeprazole 40 Mg Capsule.) 40 mg PO DAILY@0630 [facility] Ondansetron HCl (Ondansetron Hcl 4 Mg/2 Ml Vial) 4 mg IVPUSH Q8H PRN PRN Reason: Nausea and Vomiting Oxycodone HCl (Oxycodone Hcl Immed Release 5 Mg Tablet) 5 mg PO Q4H PRN PRN Reason: Pain, Moderate(Pain Scale 4-6) Oxycodone HCl (Oxycodone Hcl Er 10 Mg Tab.Er.12h) 10 mg PO BID [facility] Sodium Chloride (0.9 % Sodium Chloride Flush 3 Ml Syringe) 3 ml IVFLUSH QSHIFT [facility] Home Medications ?Medication ?Instructions ?Recorded ?Confirmed ?Last Taken ?Type albuterol sulfate 90 mcg/actuation 2 puff inhalation Q4H PRN wheezing 08/16/23 09/21/24 09/26/24 History aerosol inhaler apixaban 5 mg tablet (Eliquis) 5 mg PO BID 08/16/23 09/21/24 09/23/24 History aspirin 81 mg tablet,delayed 81 mg PO QAM 08/16/23 09/21/24 09/26/24 History release atorvastatin 80 mg tablet 80 mg PO BEDTIME 08/16/23 09/21/24 09/25/24 History diltiazem HCl 240 mg 240 mg PO QAM 08/16/23 09/21/24 09/26/24 History capsule,extended release 24 hr lisinopril 10 mg tablet 10 mg PO BEDTIME 08/16/23 09/21/24 09/25/24 History lorazepam 0.5 mg tablet 0.5 mg PO DAILY PRN anxiety 08/16/23 08/29/24 09/25/24 History nitroglycerin 0.4 mg sublingual 0.4 mg sublingual DIRECTED PRN 08/16/23 08/29/24 Unknown History tablet Chest Pain omega 5-jwz-vsj-fish oil 1,000 mg 1 cap PO QAM 08/16/23 08/29/24 09/17/24 History (120 mg-180 mg) capsule (Fish Oil) nicotine 21 mg/24 hr daily 1 patch topical DAILY 12/24/23 08/29/24 09/26/24 History transdermal patch biotin 1,000 mcg chewable tablet 1,000 mcg PO DAILY 08/28/24 08/29/24 09/17/24 History xzzhpfs-zhmkgrjho-fpbx 333 mg-133 1 tab PO DAILY 08/28/24 08/29/24 09/17/24 History mg-5 mg tablet cholecalciferol (vitamin D3) 50 50 mcg PO DAILY 08/28/24 08/29/24 09/17/24 History mcg (2,000 unit) tablet (Vitamin D3) lactobacillus combination no.4 3 3,000 mmu cells PO DAILY 08/28/24 08/29/24 09/17/24 History billion cell capsule (Probiotic) multivitamin 1 tab PO QAM 08/28/24 08/29/24 09/17/24 History omeprazole 20 mg tablet,delayed 20 mg PO DAILY 09/26/24 09/26/24 Unknown History release Physical Exam 2 Vital Signs and Narrative: Vital Signs: Last Vital Signs Temp 98.1 F 09/26/24 19:44 Pulse 84 09/26/24 19:44 Resp 20 09/26/24 19:44 BP 187/81 H 09/26/24 19:44 Pulse Ox 96 09/26/24 19:44 O2 Del Method Nasal Cannula 09/26/24 19:44 O2 Flow Rate 2 09/26/24 19:44 BMI result Body Mass Index 29.7 General: AOx3, no acute distress Resp: CTA bilaterally CVS: RRR, +murmur GI: +BS, NT, no distention Skin: Warm, dry Neuro: Cranial nerves II-XII grossly intact bilaterally. Motor grossly intact bilaterally Extremities: Pneumoboots currently on, sensation and motor intact bilateral lower extremities. Psych: Appropriate affect Const: General: No confusion Orientation/consciousness: No confusion Eyes: Direct Ophthalmoscopy: No photophobia Neuro: General: No confusion Results Labs 08/28/24 13:09 08/28/24 13:09 Assessment and Plan (1) S/P total left hip arthroplasty: Status: Acute (2) HTN (hypertension): Status: Acute Plan Patient is a 58-year-old female with a past medical history significant for PVD, pre DM, GERD, paroxysmal AFib, NSTEMI, C-spine stenosis, NAFLD, LORENA, HLD and HTN, who is now s/p left STEVE today. S/p L STEVE POD 0 - pain controlled - plan per surgery HTN - BP elevated, pt has not taken BP meds today - continue lisinopril paroxysmal a fib - continue diltiazem, hold Eliquis, currently on Lovenox GERD - continue omeprazole Pre-DM - no home meds - random glucose 97 History NSTEMI/HLD - continue statin, ASA 81 LORENA - currently on NC, O2 sats good - no home CPAP Tobacco use disorder - nicotine patch Thank you for allowing me to participate in the pt's care. Will continue to follow due to elevated BP, will likely normalize once home meds are restarted. Please contact the medical team if any questions or concerns.
[2024-09-26] MEDS: ondansetron HCL 4 MG/2 ML VIAL IVPUSH (22:34)
[2024-09-26] MEDS: Celecoxib 200 MG CAPSULE PO (22:34)
[2024-09-26] MEDS: vancomycin HCL 1,000 MG in 0.9 % Sodium Chloride 250 ML 270 MG IV (22:34)
[2024-09-26] MEDS: Docusate Sodium 100 MG CAPSULE PO (22:35)
[2024-09-26] MEDS: 0.9 % Sodium Chloride Flush 3 ML SYRINGE IVFLUSH (22:35)
[2024-09-26] MEDS: lisinopriL 10 MG TABLET PO (22:35)
[2024-09-27 03:00] VITALS: BP 145/65; PULSE 98; RESP 18; TEMP 36.4; O2SAT 93
[2024-09-27 03:17] VITALS: BP 145/65; PULSE 98; RESP 18; TEMP 37; O2SAT 93
[2024-09-27] MEDS: oxyCODONE HCl Immed Release 5 MG TABLET PO ×3 (04:49→12:13)
[2024-09-27] MEDS: Omeprazole 40 MG CAPSULE.DR PO (04:51)
[2024-09-27 06:34] LABS: MANUAL DIFF FLAG NO
[2024-09-27 06:41] LABS: Basophils Percent Auto 0.1 % (0-2); Hematocrit 29.5 % (37.0-47.0); Hemoglobin 10.4 g/dl (12.0-16.0); Imm Gran Abs Auto 0.09 X10*3/uL (0.00-0.03); Imm Gran Pct Auto 0.6 % (0.0-0.4); Lymphocytes Absolute Auto 0.9 X10*3/uL (1.2-4.9); Lymphocytes Percent Auto 6.2 % (20-40); Mean Corpuscular HGB Conc 35.3 g/dl (31.0-35.0); Mean Corpuscular Volume 90.8 fL (80.0-98.0); Mean Platelet Volume 9.4 fL (9.4-12.3); Monocytes Absolute Auto 1.4 X10*3/uL (0.1-1.2); Monocytes Percent Auto 9.4 % (2-11); Neutrophils Absolute Auto 12.3 x10*3/uL (2.0-8.3); Neutrophils Percent Auto 83.7 % (45-73); Platelet Count 303 X10*3/uL (160-400); Red Blood Count 3.25 X10*6/uL (4.20-5.50); Red Cell Distribution Width 12.1 % (11.0-16.0); White Blood Count 14.8 X10*3/uL (4.8-10.8)
[2024-09-27 06:57] LABS: Anion Gap 13 (12-20); Blood Urea Nitrogen 18 mg/dL (9-16); Calcium 8.7 mg/dL (8.4-10.2); Carbon Dioxide 21 mmol/L (22-29); Chloride 107 mmol/L (96-108); Creatinine Clr Calc Pharmacy 85.6; Estimated Glomerular Filt Rate > 60; Glucose Fasting 216 mg/dL (60-99); Potassium 4.9 mmol/L (3.3-5.1); Sodium 136 mmol/L (135-145)
[2024-09-27 07:00] VITALS: BP 141/102; PULSE 88; RESP 16; TEMP 36.3; O2SAT 97
[2024-09-27] MEDS: ondansetron HCL 4 MG/2 ML VIAL IVPUSH (07:24)
[2024-09-27] MEDS: oxyCODONE HCl ER 10 MG TAB.ER.12H PO (07:30)
[2024-09-27] MEDS: Aspirin Enteric Coated 81 MG TABLET.DR PO (07:30)
[2024-09-27] MEDS: Celecoxib 200 MG CAPSULE PO (07:30)
[2024-09-27] MEDS: dilTIAZem HCL CD 240 MG CAP.ER.DEG PO (07:30)
[2024-09-27] MEDS: Docusate Sodium 100 MG CAPSULE PO (07:31)
[2024-09-27 07:57] VITALS: PULSE 88; O2SAT 97
--- NOTE | 2024-09-27 09:28 | HO.PM.IMPN ---
Subjective Subjective Date of Service: 09/27/24 Interval History: no chest pain or shortness of breath tolerating diet c/o hip pain Review of Systems Review of Systems: Yes all other systems are reviewed and are negative Physical Exam Vital Signs: Vital Signs: Last Vital Signs Temp 97.3 F 09/27/24 07:00 Pulse 88 09/27/24 07:57 Resp 16 09/27/24 07:00 BP 141/102 H 09/27/24 07:00 Pulse Ox 97 09/27/24 07:57 O2 Del Method Room Air 09/27/24 07:00 O2 Flow Rate 2 09/26/24 19:44 BMI result Body Mass Index 29.7 Gen: in no acute distress HEENT: sclera anicteric, moist mucus membranes Neck: supple Lungs: clear to auscultation bilaterally Heart: regular rate and rhythm, no murmurs Abd: soft, non-tender, non-distended Ext: no edema Skin: warm/well-perfused, L hip incision with dry bandage Neuro: alert and oriented x3, no focal findings Psych: appropriate affect Objective Data Active Medications Acetaminophen (Acetaminophen 325 Mg Tablet) 650 mg PO Q6H PRN PRN Reason: Pain, Mild 1-3,fever,headache Albuterol Sulfate (Albuterol Sulfate 90 Mcg 8 Gm Inhaler) 2 puff INHALE Q4H PRN PRN Reason: wheezing Apixaban (Apixaban 5 Mg Tablet) 5 mg PO BID [facility] Aspirin (Aspirin Enteric Coated 81 Mg Tablet.Dr) 81 mg PO DAILY [facility] Last Admin: 09/27/24 07:30 Dose: 81 mg Documented By: MERT Celecoxib (Celecoxib 200 Mg Capsule) 200 mg PO BID [facility] Last Admin: 09/27/24 07:30 Dose: 200 mg Documented By: METR Diltiazem HCl (Diltiazem Hcl Cd 240 Mg Cap.Er.Deg) 240 mg PO DAILY [facility]; Protocol Last Admin: 09/27/24 07:30 Dose: 240 mg Documented By: MERT Docusate Sodium (Docusate Sodium 100 Mg Capsule) 100 mg PO BID [facility] Last Admin: 09/27/24 07:31 Dose: 100 mg Documented By: MERT Enoxaparin Sodium (Enoxaparin Sodium 40 Mg/0.4 Ml Syringe) 40 mg SUBCUT Q24H [facility] Stop: 09/28/24 16:31 Hydromorphone HCl (Hydromorphone Hcl 0.5 Mg/0.5 Ml Syringe) 0.25 mg IVPUSH Q4H PRN; Protocol PRN Reason: Pain, Severe (Pain Scale 7-10) Lisinopril (Lisinopril 10 Mg Tablet) 10 mg PO BEDTIME [facility]; Protocol Last Admin: 09/26/24 22:35 Dose: 10 mg Documented By: RAFAELA Lorazepam (Lorazepam 0.5 Mg Tablet) 0.5 mg PO DAILY PRN PRN Reason: anxiety Nicotine (Nicotine 21 Mg Patch.Td24) 21 mg TRANSDERMA DAILY [facility] Last Admin: 09/27/24 07:31 Dose: Not Given Documented By: MERT Non-Admin Reason: Patient Refused Nitroglycerin (Nitroglycerin 0.4 Mg Tab.Subl) 0.4 mg SUBLINGUAL Q5MX3 PRN PRN Reason: Chest Pain Omeprazole (Omeprazole 40 Mg Capsule.Dr) 40 mg PO DAILY@0630 [facility] Last Admin: 09/27/24 04:51 Dose: 40 mg Documented By: RAFAELA Ondansetron HCl (Ondansetron Hcl 4 Mg/2 Ml Vial) 4 mg IVPUSH Q8H PRN PRN Reason: Nausea and Vomiting Last Admin: 09/27/24 07:24 Dose: 4 mg Documented By: MERT Oxycodone HCl (Oxycodone Hcl Immed Release 5 Mg Tablet) 5 mg PO Q4H PRN PRN Reason: Pain, Moderate(Pain Scale 4-6) Last Admin: 09/27/24 08:22 Dose: 5 mg Documented By: MERT Oxycodone HCl (Oxycodone Hcl Er 10 Mg Tab.Er.12h) 10 mg PO BID [facility] Last Admin: 09/27/24 07:30 Dose: 10 mg Documented By: MERT Sodium Chloride (0.9 % Sodium Chloride Flush 3 Ml Syringe) 3 ml IVFLUSH QSHIFT [facility] Last Admin: 09/27/24 07:31 Dose: Not Given Documented By: MERT Non-Admin Reason: IV Running Labs 09/27/24 05:30 09/27/24 05:30 Labs: Laboratory Results - last 24 hr 09/27/24 05:30 MCV 90.8 MCH 32.0 MCHC 35.3 H RDW 12.1 Plt Count 303 MPV 9.4 Immature Gran % (Auto) 0.6 H Neut % (Auto) 83.7 H Lymph % (Auto) 6.2 L [place] % (Auto) 9.4 Eos % (Auto) 0.0 Baso % (Auto) 0.1 Lymph # (Auto) 0.9 L [place] # (Auto) 1.4 H Eos # (Auto) 0.0 Baso # (Auto) 0.0 Abs Immat Gran (auto) 0.09 H Absolute Neuts (auto) 12.3 H Absolute Nucleated RBC 0.000 Nucleated RBC % (auto) 0.0 Anion Gap 13 Estim Creat Clear Calc 85.6 Estimated GFR > 60 Fasting Glucose 216 H Calcium 8.7 D Assessment and Plan (1) S/P total left hip arthroplasty: Status: Acute Plan 58yo F POD#1 L STEVE for OA; hospitalist consulted for management of comorbid PVD, pre DM, GERD, pAF, hx NSTEMI, C-spine stenosis, NAFLD, LORENA, HLD and HTN HTN - continue lisinopril + diltiazem; continue to monitor BP pAF - continue diltiazem; resume apixaban GERD - PPI CAD - ASA tobacco abuse - NRT VTE ppx - apixaban dispo - TBD Total time managing care of this patient today: 35 minutes. Quality Stroke Does the patient have a stroke diagnosis?: No VTE Prior VTE?: No VTE Risk Level:: Medical - moderate - high VTE Device Contraindication: N/A - Device Ordered VTE Drug Contraindication: N/A - Med Ordered
--- NOTE | 2024-09-27 09:49 | MHC.CM.PN ---
Patient lives in a home w/ S.O. Ambulates independently at times, but uses cane or walker PRN for pain. Independent w/ care, uses shower chair. PCP Skyler Arce MD No HCP. CM provided education and offered assistance. Patient declined. DP: PT rec home w/ services. Patient preferred [facility], but CM rec'd notification they are out of network. Second choice, [facility], has accepted and will provide PT. Cleared for dc. S.O. will transport home.
[2024-09-27] MEDS: Acetaminophen 325 MG TABLET 650 MG PO (11:07)
[2024-09-27 11:08] VITALS: PULSE 88; O2SAT 97
--- NOTE | 2024-09-27 11:58 | HO.POSTANES ---
Post Anesthesia Evaluation Post Anesthesia Evaluation Date of Service: 09/27/24 Vital Signs: Vital Signs Temp Pulse Resp BP Pulse Ox O2 Del Method 09/27/24 11:08 88 97 09/27/24 07:57 88 97 09/27/24 07:00 97.3 F 88 16 141/102 H 97 Room Air 09/27/24 03:17 98.6 F 98 18 145/65 H 93 Room Air 09/27/24 03:00 97.6 F 98 18 145/65 H 93 Room Air Anesthesia: General Endotracheal-GETA and General Mental Status: Awake Pain Control: Satisfactory Nausea/Vomiting: None Hydration: Adequate Anesthesia-Related Issues: No Anes. Related Issues
== END 2024-09-27 13:15 | disposition home health service (06) ==
LOC: HO.SSS 12:42 → HO.S3 17:48
PROVIDERS: Nurse Practitioner; Physician Assistant; PCP Internal Medicine; Visit Provider Orthopaedic Surgery
PROC: (CPT 27130; principal; 2024-09-26 13:00)
DX: M16.12 Unilateral primary osteoarthritis, left hip (principal); I10 Essential (primary) hypertension; E78.5 Hyperlipidemia, unspecified; I73.9 Peripheral vascular disease, unspecified; I48.0 Paroxysmal atrial fibrillation; I25.2 Old myocardial infarction; R73.03 Prediabetes; K21.9 Gastro-esophageal reflux disease without esophagitis; K76.0 Fatty (change of) liver, not elsewhere classified; G47.33 Obstructive sleep apnea (adult) (pediatric); Z79.01 Long term (current) use of anticoagulants; Z79.82 Long term (current) use of aspirin; Z79.899 Other long term (current) drug therapy; Z88.0 Allergy status to penicillin; Z88.5 Allergy status to narcotic agent; F17.210 Nicotine dependence, cigarettes, uncomplicated; Z96.641 Presence of right artificial hip joint; Z56.0 Unemployment, unspecified; Z98.890 Other specified postprocedural states
CPT/HCPCS: 27130; 36415; 72170; 80048; 85025; 85027; 86850; 86900; 86901; 87640; 87641; 88304; 88311; 97110; 97116; 97162; 97166; C1713; C1776; J0131; J1100; J1171; J1790; J1885; J2003; J2405; J2704; J2795; J3010; J3370; J3371

== ENCOUNTER → 2024-09-26 09:59 | Outpatient (BNV) | payer MEDICARE, MEDICAID, SELFPAY | PROVIDERS: PCP Internal Medicine; Visit Provider Orthopaedic Surgery | DX: Z47.1 Aftercare following joint replacement surgery (principal); Z96.642 Presence of left artificial hip joint | CPT/HCPCS: 27130; 99024; G0180 ==

== ENCOUNTER → 2024-09-26 09:59 | Outpatient (BNV) | payer MEDICARE, MEDICAID, SELFPAY | PROVIDERS: PCP Internal Medicine; Visit Provider Physician Assistant | DX: Z96.642 Presence of left artificial hip joint (principal) | CPT/HCPCS: 99222; 99232 ==

== ENCOUNTER → 2024-09-26 17:29 | Outpatient (BNV) | payer MEDICARE, MEDICAID, SELFPAY | PROVIDERS: PCP Internal Medicine; Visit Provider Radiology Diagnostic Radiology | DX: Z96.642 Presence of left artificial hip joint (principal) | CPT/HCPCS: 72170 ==

== ENCOUNTER 2024-10-06 06:12 | Emergency (ER) | payer MEDICARE, MEDICAID, SELFPAY ==
[2024-10-06 06:16] VITALS: BP 120/49; PULSE 83; RESP 16; TEMP 36.8; O2SAT 96; BMI 28.7
--- NOTE | 2024-10-06 06:27 | ED_ITS ---
HPI - General Adult General Chief complaint: Extremity Problem Stated complaint: Post-operative hip replacement complications Time Seen by Provider: 10/06/24 06:52 Source: patient and EMS Mode of arrival: EMS Limitations: no limitations History of Present Illness ED Provider: Dr. Sonia Mcneil HPI narrative: Patient comes to the emergency room via ambulance from [facility]. I accep tylor the transfer. Patient comes to the emergency room after being told that her hemoglobin is a bit lower than usual. On 09/26/2024, patient had a left total hip arthroplasty. Patient's hemoglobin baseline is 12, when patient was discharged from [facility], her hemoglobin was 10.4, hematocrit 29.5. Seems that earlier today, she had blood work done by her PCP and it was noted that her hemoglobin was 8.4, hematocrit 25. Patient continues having left-sided hip pain. Also, patient states that she has noticed worsening swelling around the surgical site. Patient denies any fever chills. Patient had lab work done at [facility] in a CT scan which showed a collection of fluid measuring 4.6 cm x 2.4 x 7.8 cm favoring a seroma. TREY Scott From the emergency room at [facility] contacted me requesting a transfer. I spoke with TREY Acuña from our orthopedics service here at [facility], we will go ahead and accept the patient here in the emergency room, Orthopedics will, in the morning to evaluate the patient. At this time of arrival, patient states that she feels well, no pain, however the morphine that she got at [facility] made her very nauseous. Patient requesting nausea meds. Related Data Home Medications ?Medication ?Instructions ?Recorded ?Confirmed albuterol sulfate 90 mcg/actuation 2 puff inhalation Q4H PRN wheezing 08/16/23 09/21/24 aerosol inhaler apixaban 5 mg tablet (Eliquis) 5 mg PO BID 08/16/23 09/21/24 aspirin 81 mg tablet,delayed 81 mg PO QAM 08/16/23 09/21/24 release atorvastatin 80 mg tablet 80 mg PO BEDTIME 08/16/23 09/21/24 diltiazem HCl 240 mg 240 mg PO QAM 08/16/23 09/21/24 capsule,extended release 24 hr lisinopril 10 mg tablet 10 mg PO BEDTIME 08/16/23 09/21/24 lorazepam 0.5 mg tablet 0.5 mg PO DAILY PRN anxiety 08/16/23 08/29/24 nitroglycerin 0.4 mg sublingual 0.4 mg sublingual DIRECTED PRN 08/16/23 08/29/24 tablet Chest Pain omega 7-kso-dzz-fish oil 1,000 mg 1 cap PO QAM 08/16/23 08/29/24 (120 mg-180 mg) capsule (Fish Oil) biotin 1,000 mcg chewable tablet 1,000 mcg PO DAILY 08/28/24 08/29/24 gfmaeaz-xjjrczbhk-zrbc 333 mg-133 1 tab PO DAILY 08/28/24 08/29/24 mg-5 mg tablet cholecalciferol (vitamin D3) 50 50 mcg PO DAILY 08/28/24 08/29/24 mcg (2,000 unit) tablet (Vitamin D3) lactobacillus combination no.4 3 3,000 mmu cells PO DAILY 08/28/24 08/29/24 billion cell capsule (Probiotic) multivitamin 1 tab PO QAM 08/28/24 08/29/24 omeprazole 20 mg tablet,delayed 20 mg PO DAILY 09/26/24 09/26/24 release Previous Rx's ?Medication ?Instructions ?Recorded Raised toilet seat #1 ea 07/10/24 walker #1 ea 07/10/24 acetaminophen 325 mg tablet 650 mg (2 x 325 mg) PO Q6H PRN 09/27/24 Pain, Mild 1-3,Fever,Headache 30 days #240 tabs celecoxib 200 mg capsule 200 mg PO BID 30 days #60 caps 09/27/24 docusate sodium 100 mg capsule 100 mg PO BID 30 days #60 caps 09/27/24 enoxaparin 40 mg/0.4 mL 40 mg (0.4 mL) subcut Q24H DVT ppx 09/27/24 subcutaneous syringe 2 days #0.8 mL nicotine 21 mg/24 hr daily 21 mg transdermal DAILY 30 days 09/27/24 transdermal patch #30 ea ondansetron 8 mg disintegrating 8 mg PO Q12H 15 days #30 tabs 09/27/24 tablet oxycodone 5 mg tablet 5 mg PO Q4H PRN Pain, 10/04/24 Moderate(Pain Scale 4-6) 7 days #42 tabs ferrous gluconate 324 mg (37.5 mg 324 mg PO BID 30 days #60 tabs 10/06/24 iron) tablet Allergies Allergy/AdvReac Type Severity Reaction Status Date / Time hydrocodone [From Vicodin] AdvReac Severe Nausea and Verified 10/06/24 06:34 Vomiting amoxicillin [From Augmentin] AdvReac Intermediate Diarrhea Verified 10/06/24 06:34 clavulanic acid AdvReac Intermediate Diarrhea Verified 10/06/24 06:34 [From Augmentin] Penicillins AdvReac Intermediate Diarrhea Verified 10/06/24 06:34 Review of Systems Review of Systems: Constitutional : No Weight loss, No Fever, No Chills, No Night Sweats, No Fatigue, No Malaise ENT/Mouth : No Hearing loss, No Ear Pain, No Nasal Congestion, No Sinus Pain, No Hoarseness, No sore throat, No Rhinorrhea, No Swallowing Difficulty Eyes: No Eye Pain, No Swelling, No Redness, No Foreign Body, No Discharge, No V ision Changes Cardiovascular : No Chest Pain, No SOB, No Dyspnea on Exertion, No Orthopnea, No Edema, No Palpitations Respiratory : No Cough, No Sputum, No Wheezing, No Smoke Exposure, No Dyspnea Gastrointestinal : Complaining of Nausea, No Vomiting, No Diarrhea, No Constipation, No abdominal Pain, No Hematochezia, No Melena Genitourinary : no irregular bleeding, No Dysuria, No Urinary Frequency, No Hematuria, No Urinary Incontinence, No Urgency, No Flank Pain, No Urinary Flow Changes, No Hesitancy Musculoskeletal : Complaining of left hip pain and swelling and bruising. Skin : No Skin Lesions, No rash Neuro : No Weakness, No Numbness, No Paresthesias, No Loss of Consciousness, No Dizziness, No Headache Psych : No Anxiety/Panic, No Depression, No SI/HI/AH/VH, No Social Issues, Heme/Lymph: No Bruising, No Bleeding,No Lymphadenopathy Endocrine : No Polyuria, No Polydipsia, No Temperature Intolerance ON LICENSE OF [facility] Past Medical History Medical History Cervical spinal stenosis PVD (peripheral vascular disease) Family history of anesthesia complication Pre-diabetes GERD (gastroesophageal reflux disease) PAF (paroxysmal atrial fibrillation) NSTEMI (non-ST elevated myocardial infarction) IFG (impaired fasting glucose) NAFLD (nonalcoholic fatty liver disease) Arthritis Back pain Numbness of right hand FOSTER (dyspnea on exertion) Sleep apnea Elevated cholesterol HTN (hypertension) Surgical History (Updated 09/29/24 @ 00:01 by Zaida Garcia) History of carpal tunnel release History of endometrial ablation Hx of cardiac catheterization History of total right hip replacement Hx of colonoscopy Social History Social History Household Members: Significant Other Housing: House Are you a primary pet care worker to a significant other at home: No Do you presently have visiting nurse or other home services: No Comment: uses cane or walker at times Patient Tobacco Use Status: Never used Tobacco Tobacco use type: Cigarette Cigarette Packs Per Day: 1 Cigarettes Per Day: 20.0 Years Smoked: 42 Smoked in Last 30 Days: Yes e-Cigarette/Vaping Use: Never Used Use of substances other than those prescribed or required for medical reasons: Yes Substance Use Type: Marijuana Substance Use Frequency: Chronic Longstanding Last Used Substance: Unknown Advance Directives: No Advance Directives Information Provided: Yes Do you have a plan to hurt others: No Plan Patient : No service: No Current occupational status: unemployed Physical Exam ED Vital Signs: Vital Signs - 24 hr 10/06/24 06:16 Temperature 98.2 F Pulse Rate 83 Respiratory Rate 16 Blood Pressure 120/49 L Pulse Oximetry 96 Oxygen Delivery Method Room Air BMI result Body Mass Index 28.7 Const Other: Appearance: Alert. Oriented X3. No acute distress. Eyes: Pupils equal, round and reactive to light. ENT: Pharynx normal. Neck: Normal inspection. Neck supple. No lymph nodes noted. No crepitus CVS: Normal heart rate and rhythm. Pulses normal. Normal S1 and S2 Respiratory: No respiratory distress. Breath sounds normal. No Wheezing. No rales Abdomen: Soft and nontender. No rigidity. No distention. Skin: Skin warm and dry. Normal skin color. Normal skin turgor. see extremities below Extremities: No lower extremity edema. No Lacerations. No Rash. Patient has a large ecchymosis on the left upper thigh around the buttocks area and a smaller 10 cm x 10 cm ecchymosis in the inner thigh on the left. Neuro: Oriented X 3. No motor deficit. No sensory deficit. Moving all extremities. No slurred speech. CN 2 through 12 grossly intact Psych: calm, cooperative, normal affect Course Course Course Narrative: Patient received IV Zofran. At this time, patient not requesting anymore pain medication. All of patient's papers, imaging CD is in the patient's chart TREY Acuña from Orthopedics aware that the patient is in the emergency department. Plan: They will evaluate the patient and then, the Orthopedics team will determine the patient's disposition. Reevaluation(s) Reevaluation #1: Dr. Butler: The patient was signed out to me by the overnight physician pending evaluation by Orthopedics. The patient has been transferred here from [facility]. The patient recently had surgery for a left hip replacement. This was done by Dr. Westbrook. The patient apparently was referred to [facility] by her primary care doctor yesterday because of concern about anemia. She had a CT scan of the surgical area that showed a seroma and she was transferred here. This morning the patient was seen by the orthopedic team. The Orthopedic team does not feel that there is any significant surgical complication and do not feel the patient requires hospitalization. The patient's hemoglobin as tested by [facility] last night was 8.4. This is a drop from when the patient was at the hospital here at the time of her surgery. At that time her hemoglobin was 10.4. The patient seems to tolerate the anemia reasonably well. Describe supplemental iron. Otherwise the patient will be discharged to follow up with her orthopedist and her primary care doctor. Time: 08:36 Medications Administered Discontinued Medications Generic Name Dose Route Start Last Admin Trade Name Freq PRN Reason Stop Dose Admin Ondansetron HCl 4 mg 10/06/24 06:28 10/06/24 06:46 Ondansetron Hcl 4 Mg/2 Ml Vial IVPUSH 10/06/24 06:29 4 mg ONCE ONE Administration Medical Decision Making Medical Decision Making [facility] Narrative: at this time, patient under physician observation, started at 06:40, waiting for evaluation from orthopedics. Sign-out given to my colleague Dr. Butler Discharge Plan Discharge Clinical Impression: Seroma of musculoskeletal structure after musculoskeletal system procedure Patient Disposition: Home, Self-Care Additional Instructions: You were seen by the orthopedic team. They do not feel there is any significant problem with your surgical wound. you are somewhat anemic today. This is likely from some degree of blood loss related to the surgery. I have sent a prescription for iron tablets that you may use help recover and improve your anemia. All of your regular medications. Do your best to minimize or eliminate smoking. Please follow up with both your regular doctor and your orthopedist. Return to the emergency room if significantly worse. Prescriptions: New ferrous gluconate 324 mg (37.5 mg iron) tablet 324 mg PO BID 30 Days Qty: 60 0RF No Action (DME) walker Misc See Rx Instructions .MEDSUPPLY Qty: 1 0RF Rx Instructions: Folding Front wheeled walker (DME) Raised toilet seat See Rx Instructions .ROUTE .MEDSUPPLY Qty: 1 0RF Rx Instructions: duration - 99 days oxycodone 5 mg tablet 5 mg PO Q4H PRN (Reason: Pain, Moderate(Pain Scale 4-6)) 7 Days Qty: 42 0RF Rx Instructions: Partial Fill upon patient request. atorvastatin 80 mg tablet 80 mg PO BEDTIME diltiazem HCl 240 mg capsule,extended release 24hr 240 mg PO QAM aspirin 81 mg tablet,delayed release (DR/EC) 81 mg PO QAM lorazepam 0.5 mg tablet 0.5 mg PO DAILY PRN (Reason: anxiety) lisinopril 10 mg tablet 10 mg PO BEDTIME nitroglycerin 0.4 mg tablet, sublingual 0.4 mg sublingual DIRECTED PRN (Reason: Chest Pain) albuterol sulfate 90 mcg/actuation HFA aerosol inhaler 2 puff inhalation Q4H PRN (Reason: wheezing) Eliquis 5 mg tablet 5 mg PO BID omega 2-dts-tlt-fish oil [Fish Oil] 1,000 mg (120 mg-180 mg) Capsule 1 cap PO QAM multivitamin Tablet 1 tab PO QAM xgtdzbq-kgkjjowvz-hawu 333-133-5 mg Tablet 1 tab PO DAILY cholecalciferol (vitamin D3) [Vitamin D3] 50 mcg (2,000 unit) Tablet 50 mcg PO DAILY Probiotic 3 billion cell Capsule 3,000 mmu cells PO DAILY Rx Instructions: administer with a meal biotin 1,000 mcg Tablet,Chewable 1,000 mcg PO DAILY omeprazole 20 mg Tablet,Delayed Release (Dr/Ec) 20 mg PO DAILY acetaminophen 325 mg Tablet 650 mg PO Q6H PRN (Reason: Pain, Mild 1-3,Fever,Headache) 30 Days Qty: 240 0RF celecoxib 200 mg Capsule 200 mg PO BID 30 Days Qty: 60 0RF docusate sodium 100 mg Capsule 100 mg PO BID 30 Days Qty: 60 0RF nicotine 21 mg/24 hr Patch 24 Hour 21 mg transdermal DAILY 30 Days Qty: 30 0RF enoxaparin 40 mg/0.4 mL Syringe 40 mg subcut Q24H 2 Days Qty: 0.8 0RF Rx Instructions: Lovenox injections x 2 and then Resume Eliquis at regular dosing Lovenox 09/27/24 at 4:30pm Lovenox 09/28/24 at 4:30pm Resume Eliquis at regular dosing 09/29/24 ondansetron 8 mg tablet,disintegrating 8 mg PO Q12H 15 Days Qty: 30 0RF Referrals: Ethan Westbrook MD [Physician] - Skyler Arce MD [Physician] - Print Language: Israeli
[2024-10-06] MEDS: ondansetron HCL 4 MG/2 ML VIAL IVPUSH (06:46)
--- OUTSIDE RECORDS SUMMARY | 2024-10-06 06:51 | XMS_ITS | Encounter Summary ---
Author Organization [facility] Address [address] [place] [address] Care Team Providers Care Associate Programmer Analyst Name Role Phone Skyler Arce MD Primary Care Provider [phone] Reason for Visit * Reason Onset Date Comments Hospital Follow-up 10/02/2024 Encounter Details Date Type Department Care Team ([facility] st Contact Info) Description 10/02/2024 Telephone Pediatrics - [address] [place] [address] Skyler Arce MD [address] [facility] [place] [address] Hospital Follow-up Social History Tobacco Use Types Packs/Day Years Used Date Smoking Tobacco: Every Day Cigarettes 0.5 21.3 Started: 07/05/2003 Smokeless Tobacco: Never Comments:Less than 1 pack da carmenza Alcohol Use Standard Drinks/Week Comments Yes 0 (1 standard drink = 0.6 oz pur e alcohol) Housing Instability Answer Date Recorde d Are you worried that in the next 2 months you may not have stable housing? Yes 06/15/2024 Food Access & Nutrition Answer Date Rec orded Do you have access to a vari ety of food including fruits and vegetables? Yes 06/15/2024 Health Literacy Answer Date Recorded How often do you need to hav e someone help you when you read instructions, pamphlets, or other written material from your doctor or pharmacy? Never 06/15/2024 Caregiver: How often do you need to have someone help you when you read instructions, pamphlets, or other written material from your doctor or pharmacy? Not on file 06/15/2024 Financial Risk Answer Date Recorded How hard is it for you to pa y for the very basics like food, housing, medical care, and air conditioning / heating? Hard 06/15/2024 Transportation Answer Date Recorded Has the lack of transportati on kept you from meetings, work, or from getting things needed for daily living? No Has the lack of transportati on kept you from medical appointments or from getting medications? No 06/15/2024 Social Isolation Answer Date Recorded How often do you feel lonely or isolated from th ose around you? Often 06/15/2024 Food Risk Answer Date Recorded Within the past 12 months we worried whether our food would run out before we got money to buy more. Never true 06/15/2024 Within the past 12 months th e food we bought just didn't last and we didn't have money to get more. Never true 06/15/2024 Dependent Care Answer Date Recorded Do you need help finding or paying for care for your loved ones. For example, child day care provider or elderly care for an older adult? No 06/15/2024 Education Answer Date Recorded Do you think completing more education or training, like finishing a GED, going to college, or learning a trade, would be helpful for you? No 06/15/2024 Living Situation Answer Date Recorded What is your living situation? 1 08/16/2023 Comments No Sex and Gender Information Value Date Recorded Sex Assigned at Not on file Legal Sex Female 2:30 PM EST Gender Identity Not on file Sexual Orientation Not on file documented as of this encounter Progress Notes * Destinee Stacy MA - 10/02/2024 10:16 AM EDT Spoke with pt, appt booked 10/05/24. * Josie Marie - 10/02/2024 9:51 AM EDT Hospital/ER follow up appointment needed Hospital patient was treated at: [facility] Was this only an ER visit or was the patient admitted to the hospital? Admitted to the hospital/kept overnight Date of visit if ER visit only: n/a If patient was admitted what was the date of discharge? 09/27/24 Reason/diagnosis for visit or stay: left hip replacement When was the patient told to follow up? ebony Was visit or stay related to an injury? If yes, what was the date of injury (DOI)? No If yes, was the injury due to: no documented in this encounter Plan of Treatment Upcoming Encounters Date Type Department Care Team (Late st Contact Info) Description 11/01/2024 10:30 AM EDT [facility] [phone] Andie Acuña CNM [address] [place] [address] 12/21/2024 9:45 AM EDT [facility] [phone] Skyler Arce MD [address] [place] [phone] 01/16/2025 10:45 AM EDT Ancillary Procedure [facility] - [address] [place] [address] documented as of this encounter Visit Diagnoses Not on filedocumented in this encounter Additional Health Concerns Assessment Noted Time PHQ-9 Depression Total Score: 14 025 6:36 AM EST documented as of this encounter Care Teams Associate Programmer Analyst Relationship Specialty Start Date End Date Skyler Arce MD [address] [place] [id number] PCP - General Internal Medicine 06/15/24 documented as of this encounter
--- OUTSIDE RECORDS SUMMARY | 2024-10-06 06:51 | XMS_ITS | Encounter Summary ---
Author Organization [facility] Address [address] [place] [address] Care Team Providers Care Director Of Diagnostic Imaging Name Role Phone Skyler Arce MD Primary Care Provider [phone] Reason for Visit * Reason Onset Date Comments Faxed Order 10/05/2024 Peter VERDE (Cer tification/POC 09/28/24-11/26/24) Encounter Details Date Type Department Care Team (Late Contact Info) Description 10/05/2024 Telephone [facility] [address] [facility] [place] [address] Skyler Arce MD [address] [place] [phone] Faxed Order (Peter VERDE (Certification/POC 09/28/24-11/26/24)) Social History Tobacco Use Types Packs/Day Years [...] for your loved ones. For example, child and adolescent psychologist or elderly care for an older adult? [...] as of this encounter Progress Notes * Samira Campbell - 10/05/2024 12:47 PM EDT Orders from Peter VERDE placed in Skyler Arce MD bin. Please complete and fax back to [phone]. Thank you. documented in this encounter Plan of Treatment Upcoming Encounters Date Type Department Care Team (Late Contact Info) Description 11/01/2024 10:30 AM EDT Office Visit Obstetrics and Gynecology - [address] [phone] Andie Acuña CNM [address] [place] [address] 12/21/2024 9:45 AM EDT Office Visit Internal Medicine - [address] [address] Skyler Arce MD [address] [place] [address] 01/16/2025 10:45 AM EDT Ancillary Procedure [facility] - [address] [place] [address] documented as of this encounter Visit Diagnoses Not on filedocumented in this encounter Additional Health Concerns Assessment Noted Time PHQ-9 Depression Total Score: 14 025 6:36 AM EST documented as of this encounter Care Teams Director Of Diagnostic Imaging Relationship Specialty Start Date End Date Skyler Arce MD [address] [place] [phone] PCP - General Internal Medicine 06/15/24 documented as of this encounter
--- OUTSIDE RECORDS SUMMARY | 2024-10-06 06:51 | XMS_ITS | Encounter Summary ---
Author Organization [facility] Address [address] [place] [address] Care Team Providers Care Communications Field Technician Name Role Phone Skyler Arce MD Primary Care Provider [phone] Reason for Visit * Reason Comments Hospital Follow-up Encounter Details Date Type Department Care Team ([facility] st Contact Info) Description 10/05/2024 10:30 AM EDT Office Visit Internal Medicine - [facility] [address] [place] [address] Skyler Arce MD [address] [place] [address] Hospital discharge follow-up (Primary Dx); Iron deficiency anemia secondary to inadequate dietary iron intake; Elevated random blood glucose level; History of total left hip replacement Social History Tobacco Use Types Packs/Day Years [...] for your loved ones. For example, child care cook or elderly care for an older adult? [...] as of this encounter Progress Notes * Skyler Arce MD - 10/05/2024 10:30 AM EDT CHIEF COMPLAINT: Hospital Follow-up IDENTIFIER: Naomi Montez is a 58 y.o. old female who comes alone. HPI: Naomi Montez is a 58 y.o. year old female who is here for a hospital follow up. Her medical history is significant for paroxysmal atrial fibrillation, hyperlipidemia, hypertension, former [place], carotid artery disease, anxiety, depression, GERD and L[place]. Patient was admitted at [facility] on 09/26/2024 for left total hip arthroplasty. Her H&H was 10.4/29.5 during hospital. Postop day 1 the resumed Eliquis for DVT prophylaxis then transition to Eliquis 48 hours postop. Patient also received physical therapy twice a day. Prior to discharge her dressing was clean dry and intact and patient was discharged home with VNA services on 09/27/24. Discharge medication: Tylenol 650 mg every 6 hours for pain Celecoxib 200 mg twice daily Docusate 100 mg twice daily Oxycodone 5 mg every 4 hours as needed for pain for 7 days Nicotine patch 21 mg per 24 hours Continued home medication: Atorvastatin 80 mg daily Diltiazem to 40 mg daily Aspirin 81 mg daily Lorazepam 0.5 mg daily Lisinopril 10 mg daily Nitroglycerin 0.4 mg as directed Albuterol inhaler Eliquis 5 mg twice daily Fiywmjr-dzxfztsvg-deir tablet Vitamin D 2000 international units daily Probiotic Patient report that she is doing well since surgery but continues to have some pain. She is taking Percocet every 6 hours for pain along with Tylenol. Does not like taking Celebrex. She is having physical therapy twice a week. She has an appointment with surgeon on 10/12/2024. During hospital patient was found to have elevated blood glucose of 216 and low hemoglobin 10.4. Patient would like further workup for this. She is otherwise doing well and has no other concerns. Patient reports that she is not taking her lorazepam while taking Percocet. ROS: GENERAL: No malaise, significant weight loss or fever HEENT: No changes in hearing or vision, nose bleeds or other nasal problems RESPIRATORY: No cough, wheezing or shortness of breath CARDIOVASCULAR: No chest pain, leg swelling or palpitations GI: No abdominal discomfort, blood in stools or black stools NECK: No lumps, goiter, pain or significant neck swelling : No dysuria, frequency or incontinence MUSCULOSKELETAL: No joint pain or swelling, back pain, or muscle pain. SKIN: No lesions, rash or itching NEURO: No persistent headache, syncope, seizures, weakness or numbness PAST MEDICAL HISTORY: Patient Active Problem List Diagnosis Date Noted Stenosis of carotid artery 07/19/2024 Preop cardiovascular exam 07/19/2024 Neck pain 05/23/2024 Anxiety 05/21/2024 GERD (gastroesophageal reflux disease) 05/21/2024 Low back pain 05/21/2024 Primary osteoarthritis of left hip 05/13/2023 Status post total replacement of right hip 05/13/2023 Other chest pain 05/13/2022 Shortness of breath 10/24/2021 Right carotid bruit 10/04/2020 Obstructive sleep apnea 06/26/2020 Hyperlipidemia, mixed 06/13/2020 Paroxysmal atrial fibrillation ([facility]) 06/05/2020 NSTEMI (non-ST elevated myocardial infarction) ([facility]) 05/14/2020 Smoker 08/02/2019 Impaired fasting glucose 11/19/2017 Nonalcoholic fatty liver disease 11/18/2017 Wheezing 11/07/2017 Hypertension 11/05/2017 ACTIVE MEDICATIONS: Outpatient Medications Marked as Taking for the 10/05/24 encounter (Office Visit) with Skyler Arce MD Medication Sig Dispense Refill acetaminophen (TYLENOL) 500 mg tablet Take by mouth every 8 (eight) hours if needed. Take 1,000 mg by mouth daily albuterol HFA (PROAIR HFA ; PROVENTIL HFA ; VENTOLIN HFA) 90 mcg/actuation inhaler INHALE 1 PUFF INTO THE LUNGS EVERY 4 HOURS NEEDED FOR COUGH OR WHEEZING. 18 each 1 apixaban (ELIQUIS) 5 mg tablet Take 1 tablet (5 mg total) by mouth 2 (two) times a day. 180 tablet 1 aspirin 81 mg EC tablet TAKE 1 TABLET BY MOUTH EVERY DAY 90 tablet 0 atorvastatin (LIPITOR) 80 mg tablet Take 1 tablet (80 mg total) by mouth 1 (one) time each day. 90 tablet 0 BIOTIN ORAL Take by mouth daily calcium carb/vit D3/minerals (CALCIUM CARBONATE-VIT D3-MIN ORAL) Take 1 tablet by mouth 1 (one) time each day. celecoxib (CeleBREX) 200 mg capsule Take 1 capsule (200 mg total) by mouth 1 (one) time each day. cholecalciferol (VITAMIN D-3) 25 mcg (1,000 unit) tablet Take 1 tablet (1,000 Units total) by mouth1 (one) time each day. dilTIAZem XR (DILACOR XR) 240 mg 24 hr capsule Take 1 capsule (240 mg total) by mouth 1 (one) time each day. lactobacillus acidoph-l.bulgar 100 million cell granules in packet Take 1 packet by mouth. lisinopriL (PRINIVIL,ZESTRIL) 10 mg tablet Take 1 tablet (10 mg total) by mouth 1 (one) time each day. LORazepam (ATIVAN) 0.5 mg tablet Take 1 tablet (0.5 mg total) by mouth 1 (one) time each day if needed for anxiety (for up to 15 days). Max Daily Amount: 0.5 mg 15 tablet 0 magnesium 250 mg tablet 250 mg 1 (one) time each day. multivitamin (MULTIPLE VITAMINS ORAL) nicotine (NICODERM CQ) 21 mg/[address] 1 patch on the skin 1 (one) time each day at the same time. nitroglycerin (NITROSTAT) 0.[address] 1 Tablet under the tongue every 5 minutes as needed omega-3 fatty acids 1,000 mg capsule Take 1,000 mg by mouth omeprazole (PriLOSEC) [address] capsule Take 1 capsule (40 mg total) by mouth 1 (one) time each day.Do not crush or chew. ondansetron ODT (ZOFRAN-ODT) 8 mg disintegrating tablet Dissolve 1 tablet (8 mg total) on top of the tongue every 8 (eight) hours if needed. oxyCODONE (ROXICODONE) 5 mg immediate release tablet Take 1 tablet (5 mg total) by mouth every 4 (four) hours if needed. Max Daily Amount: 30 mg ALLERGIES: Augmentin [amoxicillin-pot clavulanate] and Penicillins PHYSICAL EXAM: Visit Vitals OB Status Postmenopausal Smoking Status Every Day APPEARNCE: well appearing, awake, alert, in no acute distress EYES: PERRL, conjunctiva and sclera normal NOSE/SINUS: negative MOUTH/THROAT: no erythema or exudates NECK: Supple without any adenopathy HEART: regular rate, regular rhythm and no murmur RESPIRATORY: clear lungs bilaterally EXTREMITIES: No edema and Normal pulses bilaterally. NEURO: Awake, alert and oriented x 3, Normal gait and No involuntary motions. SKIN: No rashes or lesions. LABS: Lab Results Component Value Date WBC 10.7 06/15/2024 HGB 12.4 06/15/2024 HCT 37.9 06/15/2024 MCV 95.9 06/15/2024 Lab Results Component Value Date NA 139 06/15/2024 K 4.7 06/15/2024 CO2 26 06/15/2024 CL 107 06/15/2024 BUN 11 06/15/2024 Lab Results Component Value Date CHOL 128 06/15/2024 LDL 0 03/03/2023 HDL 48 06/15/2024 TRIG 138 06/15/2024 No results found for: TSH IMPRESSION: 1. Hospital discharge follow-up 2. Iron deficiency anemia secondary to inadequate dietary iron intake CBC and differential Iron and TIBC Ferritin 3. Elevated random blood glucose level Hemoglobin A1c Basic metabolic panel 4. History of total left hip replacement PLAN: Information was extracted from the discharge notes from [facility]. The history was reviewed for accuracy and confirmed by myself. I have reconciled the current and discharge meds. Patient was admitted at [facility] on 09/26/2024 for left total hip arthroplasty. Patient was discharged home the next day with home services. Her pain is managed with Percocet every 6 hours as needed and Tylenol every 6 hours as needed. Patient report that her pain is well-controlled. Patient is getting physical therapy twice a week. Her next appointment with surgeon is on 10/12/2024. Patient was advised to continue with all her home meds. Continue with physical therapy services. Patient was found to have low hemoglobin prior to procedure. Will check CBC, iron panel and ferritin level today. Patient was also found to have elevated blood sugar. Will check A1c and BMP today. Patient is scheduled to follow-up with me in 2 months. ADDITIONAL ORDERS: None Today's documentation was made using voice recognition software.This note may contain grammatical errors secondary to this software. MD Skyler Jamil MD on 10/05/2024 at 10:56 AM EDT documented in this encounter Plan of Treatment Upcoming Encounters Date Type Department Care Team (Late st Contact Info) Description 11/01/2024 10:30 AM EDT Office Visit Obstetrics and [facility]necology - [facility] [address] [place] [address] Andie Acuña CNM [address] [place] [address] 12/21/2024 9:45 AM EDT [facility] [address] [place] [address] Skyler Arce MD [address] [place] [address] 01/16/2025 10:45 AM EDT Ancillary Procedure [facility] [address] [place] [address] documented as of this encounter Results * (ABNORMAL) Ferritin (10/05/2024 11:10 AM EDT) [facility] Ferritin 374(H) 8 - 252 ng/mL LAB CHEMISTRY METHOD 10/05/2024 4:39 PM EDT [facility] Blood Venous blood specimen / Unknown Venipuncture / Unknown 10/05/2024 11:10 AM EDT 10/05/2024 11:10 AM EDT us Skyler Arce MD LAB BLOOD ORDERABLES Final Resu lt [facility] [address] [place] [address], * (ABNORMAL) Iron and TIBC (10/05/2024 11:10 AM EDT) Iron 38(L) 40 - 150 mcg/dL LAB CHEMISTRY METHOD 10/05/2024 4:39 PM EDT [facility] TIBC 348 250 - 450 mcg/dL LAB CHEMISTRY METHOD 10/05/2024 4:39 PM EDT [facility] Iron Saturation 11(L) 15 - 50 % LAB CHEMISTRY METHOD 10/05/2024 4:39 PM EDT [facility] Blood Venous blood specimen / Unknown Venipuncture / Unknown 10/05/2024 11:10 AM EDT 10/05/2024 11:10 AM EDT Skyler Arce MD LAB BLOOD ORDERABLES Final Resu lt Performing Organization Address City/[facility]/ZIP Co de Phone Number [facility] [address] [place] [address], [place] [phone] * Hemoglobin A1c (10/05/2024 11:10 AM EDT) Hemoglobin A1C 6.0 <6.5 % LAB CHEMISTRY METHOD 10/05/2024 11:02 PM EDT [facility] Mean Bld Glu Estim. 126 mg/dL LAB CHEMISTRY METHOD 10/05/2024 11:02 PM EDT [facility] Blood Venous blood specimen / Unknown Venipuncture / Unknown 10/05/2024 11:10 AM EDT 10/05/2024 11:10 AM EDT Skyler Arce MD LAB BLOOD ORDERABLES Final Resu lt Performing Organization Address [facility]/ZIP Co de Phone Number [facility] [address] [place] [address], [place] [phone] documented in this encounter Visit Diagnoses Diagnosis Hospital discharge follow-up- Primary Other follow-up examination Iron deficiency anemia secondary to inadequate dietary iron intake Elevated random blood glucose level History of total left hip replacement documented in this encounter Discontinued Medications Medication Sig Discontinue Reason Start Date End Da te celecoxib (CeleBREX) 200 mg capsule Take 1 capsule (200 mg total) by mouth 1 (one) time each day. Drug interaction 09/27/2024 10/05/2024 documented as of this encounter Historical Medications * This list may reflect changes made after this encounter. ondansetron ODT (ZOFRAN-ODT) 8 mg disintegrating tablet Dissolve 1 tablet (8 mg total) on top of the tongue every 8 (eight) hours if needed. 09/27/2024 oxyCODONE (ROXICODONE) 5 mg immediate release tablet Take 1 tablet (5 mg total) by mouth every 4 (four) hours if needed. Max Daily Amount: 30 mg 10/04/2024 celecoxib (CeleBREX) 200 mg capsule Take 1 capsule (200 mg total) by mouth 1 (one) time each day. 09/27/2024 added in this encounter Orders Lab Orders Without Results Count Last Ordered D ate First Ordered Date BASIC METABOLIC PANEL 1 10/05/2024 documented in this encounter Additional Health Concerns Assessment Noted Time PHQ-9 Depression Total Score: 14 025 6:36 AM EST documented as of this encounter Care Teams Communications Field Technician Relationship Specialty Start Date End Date Skyler Arce MD [address] [place] [address] PCP - General Internal Medicine 06/15/24 documented as of this encounter
--- OUTSIDE RECORDS SUMMARY | 2024-10-06 06:51 | XMS_ITS | Clinical Summary ---
Author Organization [facility] Address [address] [place] [address] Care Team Providers Care Rda Name Role Phone Sharon Arce MD Primary Care Provider [phone] Allergies Active Allergy Reactions Criticality Noted Date Comments Amoxicillin-Pot Clavulanate Diarrhea 05/23/20 24 Penicillins Diarrhea 08/03/2017 Medications nicotine (NICODERM CQ) 21 mg/[address] 1 patch on the skin 1 (one) time each day at the same time. Active dilTIAZem XR (DILACOR XR) 240 mg 24 hr capsule Take 1 capsule (240 mg total) by mouth 1 (one) time each day. Active lisinopriL (PRINIVIL,ZESTRIL ) 10 mg tablet Take 1 tablet (10 mg total) by mouth 1 (one) time each day. Active lactobacillus acidoph-l.bulgar 100 million cell granules in packet Take 1 packet by mouth. Active magnesium 250 mg tablet 250 mg 1 (one) time each day. Active omeprazole (PriLOSEC) [address] capsule Take 1 capsule (40 mg total) by mouth 1 (one) time each day. Do not crush or chew. Active BIOTIN ORAL Take by mouth daily Active multivitamin (MULTIPLE VITAMINS ORAL) Activ e cholecalciferol (VITAMIN D-3) 25 mcg (1,000 unit) tablet Take 1 tablet (1,000 Units total) by mouth 1 (one) time each day. Active acetaminophen (TYLENOL) 500 mg tablet Take by mouth every 8 (eight) hours if needed. Take 1,000 mg by mouth daily Active nitroglycerin (NITROSTAT) 0.[address] 1 Tablet under the tongue every 5 minutes as needed Active omega-3 fatty acids 1,000 mg capsule Take 1,000 mg by mouth Active calcium carb/vit D3/minerals (CALCIUM CARBONATE-VIT D3-MIN ORAL) Take 1 tablet by mouth 1 (one) time each day. Active aspirin 81 mg EC tabletIndications :Unspecified atrial fibrillation (CMS/HCC) TAKE 1 TABLET BY MOUTH EVERY DAY 90 tablet 024 Active apixaban (ELIQUIS) 5 mg tablet Take 1 tablet (5 mg total) by mouth 2 (two) times a day. 180 tablet 1 024 Active LORazepam (ATIVAN) 0.5 mg tablet Take 1 tablet (0.5 mg total) by mouth 1 (one) time each day if needed for anxiety (for up to 15 days). Max Daily Amount: 0.5 mg 15 tablet 025 Active albuterol HFA (PROAIR HFA ; PROVENTIL HFA ; VENTOLIN HFA) 90 mcg/actuation inhaler INHALE 1 PUFF INTO THE LUNGS EVERY 4 HOURS NEEDED FOR COUGH OR WHEEZING. 18 each 1 025 Active atorvastatin (LIPITOR) 80 mg tablet Take 1 tablet (80 mg total) by mouth 1 (one) time each day. 90 tablet 025 Active oxyCODONE (ROXICODONE) 5 mg immediate release tablet Take 1 tablet (5 mg total) by mouth every 4 (four) hours if needed. Max Daily Amount: 30 mg 025 Active ondansetron ODT (ZOFRAN-ODT) 8 mg disintegrating tablet Dissolve 1 tablet (8 mg total) on top of the tongue every 8 (eight) hours if needed. 025 Active fluticasone propionate (FLONASE) 50 mcg/actuation nasal spray Administer 2 sprays into each nostril 1 (one) time each day. Shake gently. Before first use, prime pump. After use, clean tip and replace cap. 48 g 025 Active atorvastatin (LIPITOR) 80 mg tablet Take 1 tablet (80 mg total) by mouth 1 (one) time each day. 2024 Discontinued albuterol HFA (PROAIR HFA ; PROVENTIL HFA ; VENTOLIN HFA) 90 mcg/actuation inhaler INHALE 1 PUFF INTO THE LUNGS EVERY 4 HOURS NEEDED FOR COUGH OR WHEEZING. 18 each 1 025 2024 Discontinued celecoxib (CeleBREX) 200 mg capsule Take 1 capsule (200 mg total) by mouth 1 (one) time each day. 025 2024 Discontinued(D rug interaction) Active Problems Problem Noted Date Diagnosed Date Stenosis of carotid artery 07/19/2024 Overview (07/19/2024): - Most recent carotid ultrasound from January 2024 showed 50 to 69% stenosis in the right internal carotid with elevated velocities through the lower right subclavian but without associated plaque or turbulence making actual stenosis less likely, less than 50% stenosis in the left internal carotid with normal left subclavian flow, antegrade flow in the bilateral vertebrals Assessment & Plan (07/19/2024 4:55 PM EST): The carotid artery stenosis is moderate and has not changed. She is advised to continue monitoring for any stroke symptoms such as numbness, weakness, or vision loss. A carotid ultrasound will be scheduled for 01/2025 to monitor the condition. If the results are stable, the frequency of the ultrasound can be reduced. Preop cardiovascular exam 07/19/2024 Assessment & Plan (07/19/2024 4:55 PM EST): She is able to perform activities equivalent to 4 metabolic equivalents, such as climbing a flight of stairs or doing light housework. She is having no active cardiac symptoms. Therefore, there are no cardiovascular contraindications to orthopedic surgery. No additional testing is indicated. She should continue diltiazem and atorvastatin perioperatively. She should discontinue Eliquis 2 days prior to her hip replacement surgery and resume it 1 to 2 days post-surgery or whenever safe from a bleeding standpoint per orthopedic surgery. She will maintain her aspirin intake throughout the surgical period. Neck pain 05/23/2024 Anxiety 05/21/2024 GERD (gastroesophageal reflux disease) Low back pain 05/21/2024 Primary osteoarthritis of left hip 05/13/2023 Status post total replacement of right hip 05/13 Other chest pain 05/13/2022 Overview (05/23/2024): Last Assessment & Plan: As I noted this patient has had some exertional chest pain. Etiology is not clear. Cardiac catheterization 2 years ago did not demonstrate any significant coronary disease. It was felt that her wall motion abnormality and her elevation of her troponin was due to vasospasm. However she does continue to smoke cigarettes. I do not think she is developed severe atherosclerotic disease and I do not think this is due to vasospasm however I will schedule her for stress test on her medication. I did tell her if she had any discomfort in her chest that lasted for 15 minutes to call 911. Shortness of breath 10/24/2021 Overview (05/23/2024): Last Assessment & Plan: She does have dyspnea on exertion which is likely attributed to a longstanding history of smoking. I will repeat an echocardiogram at first available although I doubt there are any structural abnormalities or any evidence of significant diastolic dysfunction. Right carotid bruit 10/04/2020 Overview (05/21/2024): Last Assessment & Plan: She did have a carotid Doppler exam. This was noted December that she had a 50 to 69% stenosis of the right carotid artery. This was noted in October 2020. I will repeat her carotid Doppler in December 2022. Obstructive sleep apnea 06/26/2020 Overview (05/23/2024): [facility] Home Sleep Apnea Test: Date 06/14/2020; Wt 172#; BMI 28; LON (AHI) 6, AI 2; HI 4; Unclassified apneas 0; Obstructive apneas 15; Central apneas 0; Mixed apneas 0; hypopneas 26; average oxygen saturation 94% (lowest 87% without saturations <88% for 5% or more of study) - Obstructive Sleep Apnea - mild; mostly hypopneas and obstructive apneas; without sleep related hypoventilation by 2019 home sleep apnea test. Study ordered by Dr Hebert. SMS indicated they will arrange follow-up. Hyperlipidemia, mixed 06/13/2020 Overview (05/21/2024): Last Assessment & Plan: Last lipid panel from February 2023. Total cholesterol 139, HDL 84, LDL 33. Continue high intensity statin therapy. Paroxysmal atrial fibrillation 06/05/2020 Overview (07/19/2024): - Hospitalized at [facility] in late May into early June 2020 where she was diagnosed (about 3 weeks after her NH diagnosis) -Rate controlled and on Eliquis for CVA prophylaxis -Most recent echocardiogram from October 2021 showed normal left ventricular ejection fraction of 55 to 60%, normal RV size and function, and no valvular abnormalities Assessment & Plan (07/19/2024 4:55 PM EST): Continue rate control with current diltiazem to 40 mg daily. Continue Eliquis 5 twice daily for CVA prophylaxis Orders: ECG 12 lead NSTEMI (non-ST elevated myocardial infarction) 1 07/14/2019 Overview (07/19/2024): - Was hospitalized at [facility] in early May 2020 during which point she ruled in with serial cardiac enzyme positivity, had grossly abnormal ECG changes, and EF was reduced in the 45-50 % range with mid to distal inferior, inferoapical, apical septal, and apical wall motion abnormalities suggestive of a true non-STEMI - Cardiac cath however showed minor luminal irregularities only of the coronaries - Patient was treated as presumed spasm with amlodipine as well as high-dose statin, aspirin -3 weeks later, she was hospitalized for new diagnosis of atrial fibrillation at [facility] at which point her amlodipine was switched to diltiazem Last Assessment & Plan: This patient did have a non-STEMI was felt to have coronary spasm. She is on diltiazem and I will continue with this. I did review this with her as well the fact that her last echocardiogram demonstrated normal left ventricular systolic function with normal wall motion. I did tell her she started having a chest discomfort as well but no. She was asking exercise I discussed this with her is is related to start exercising. Assessment & Plan (07/19/2024 4:55 PM EST): No recurrent anginal symptoms, continue current diltiazem, high-dose statin, baby aspirin Smoker 08/02/2019 Assessment & Plan (07/19/2024 4:55 PM EST): Cessation counseling provided. Specifically encouraged use of the nicotine patch to help her continue to quit smoking Impaired fasting glucose 11/19/2017 Nonalcoholic fatty liver disease 11/18/2017 Overview (05/23/2024): Enlarged liver on imaging Wheezing 11/07/2017 Hypertension 11/05/2017 Overview (05/21/2024): Last Assessment & Plan: 130/60 in office today, well-controlled on current therapy. Continue current regimen. Assessment & Plan (07/19/2024 4:55 PM EST): Blood pressure readings have been consistently normal in previous visits, suggesting that the elevated reading today may be due to pain or stress. he is advised to continue her current medication regimen, including Lipitor, aspirin, lisinopril, and diltiazem. She is encouraged to engage in physical activity for at least 20 minutes daily and to incorporate stretching exercises into her routine. She is also advised to monitor her blood pressure once or twice a month at [facility] or [facility]. Resolved Problems Problem Noted Date Diagnosed Date Resolved Date Left ventricular hypertrophy 05/10/2023 07/19/2024 Overview (05/21/2024): Last Assessment & Plan: Have an echocardiogram in 2019 stating that the wall thickness was increased to 15 mm although an echocardiogram 2021 wall thickness appear to be okay. I am going to repeat the echocardiogram to see what her wall thickness is now. Coronary vasospasm 05/14/2020 Overview (05/21/2024): Last Assessment & Plan: Type II demand NH with mild luminal irregularities based off cardiac catheterization May 2020. Likely secondary to coronary vasospasm. She is stable without any ischemic symptoms. Continue aspirin, diltiazem, lisinopril, and high intensity statin therapy. She will continue a low-salt diet and daily exercise. Advised she should abstain from cigarette smoking which she is actively working on. Encounters Date Type Department Care Team Description 10/05/2024 10:18 PM EDT - 10/06/2024 5:50 AM EDT Emergency [facility] Emergency [address] [place] [phone] Postoperative hematoma of musculoskeletal structure following musculoskeletal procedure (Primary Dx) Discharge Disposition: Another Health Care Institution Not Defined 10/05/2024 10:30 AM EDT Office Visit [facility] - [facility] [address] [place] [phone] Sharon Arce MD Hospital discharge follow-up (Primary Dx); Iron deficiency anemia secondary to inadequate dietary iron intake; Elevated random blood glucose level; History of total left hip replacement 10/05/2024 Telephone Pediatrics - [facility] [address] [place] [phone] Sharon Arce MD Faxed Order (Peter GUYA (Certification/POC 09/28/24-11/26/24)) 10/02/2024 Telephone Pediatrics - [facility] [address] [place] [phone] Sharon Arce MD Hospital Follow-up 08/25/2024 Telephone [facility] Cardiology [address] [place] [phone] Sharon Arce MD Medical Records 08/03/2024 10:00 AM EST Consult Chief Librarian Branch Or Department - [facility] [address] [place] [phone] Sharon Arce MD Pre-op examination (Primary Dx) 07/19/2024 11:20 AM EST Office Visit [facility] Cardiology [facility] [address] [place] [phone] Mirna Calzada MD Paroxysmal atrial fibrillation (CMS/HCC) (Primary Dx); Stenosis of carotid artery, unspecified laterality; Carotid bruit, unspecified laterality; Preop cardiovascular exam; NSTEMI (non-ST elevated myocardial infarction) (CMS/HCC); Primary hypertension; Smoker from Last 3 Months Immunizations Name Administration Dates Next Due Influenza Quadravalent, MDCK , 0.5ml, preservative free (Flucelvax) 6mo and older 06/10/2022 Pfizer SARS-CoV-2 COVID-19, mRNA, LNP-S, preservative free 10/07/2021,03/08/2021,02/15/2021 Tdap Tetanus diptheria acell ular pertussis (Boostrix; Adacel) 7yo and older 08/02/2019 Surgical History Surgery Date Site/Laterality Comments OTHER SURGICAL HISTORY 2008 PROCEDURE: LAPS ABLATJ UTERINE FIBROIDS W/INTRAOP US GDNC; COMMENT: menorrhagia/fibroids HIP ARTHROPLASTY 10/04/2018 Right PROCEDURE: HISTORICAL HIP REPLACEMENT; COMMENT: Dr. Aggarwal TOTAL HIP ARTHROPLASTY 09/26/2024 Left Medical History Medical History Date Comments Low back pain DX:Low back pain Neck pain DX:Neck pain GERD (gastroesophageal reflux disease) DX:GERD (gastroesophageal reflux disease) Anxiety DX:Anxiety Family History Medical History Relation Name Comments Breast cancer Aunt Paternal Other: A- fib Father Lung cancer Maternal Grandmother Diabetes Mother Other: Other Mother glioblastoma (p er pt report) Stroke Mother Diabetes Sister 1 Other: Alive and well Sister 2 Relation Name Status Comments Aunt Father Alive Maternal Grandmother Mother Sister 1 Alive Sister 2 Alive Social History Tobacco Use Types Packs/Day Years Used Date Smoking Tobacco: Every Day Cigarettes 0.5 21.3 Started: 07/05/2003 Smokeless Tobacco: Never Tobacco Cessation:Ready to Q uit: Not Asked; Counseling Given: Not Answered Comments:Less than 1 pack daily Alcohol Use Standard Drinks/Week Comments Yes 0 [...] care for your loved ones. For example, vocational childcare teacher or elderly care for an older adult? [...] on file Sexual Orientation Not on file Obstetrics History Last Filed Vital Signs Vital Sign Reading Time Taken Comments Blood Pressure 132/73 10/06/2024 4:29 AM EDT Pulse 81 10/06/2024 4:29 AM EDT Temperature 36.8 ??C (98.3 ??F) 10/06/2024 4:29 AM ED T Respiratory Rate 18 10/06/2024 4:29 AM EDT Oxygen Saturation 99% 10/06/2024 4:29 AM EDT Inhaled Oxygen Concentration - - Weight 81.6 kg (180 lb) 10/05/2024 7:51 PM EDT Height 167.6 cm (5' 6 ) 10/05/2024 7:51 PM EDT Body Mass Index 29.05 10/05/2024 7:51 PM EDT Plan of Treatment Upcoming Encounters Date Type Department Care Team (Late st Contact Info) Description 11/01/2024 10:30 AM EDT Office Visit Obstetrics and Gynecology - [address] [phone] Andie Acuña CNM [address] [place] [address] 12/21/2024 9:45 AM EDT Office Visit Internal Medicine - [address] [phone] Sharon Arce MD [address] [place] [address] 01/16/2025 10:45 AM EDT Ancillary Procedure [facility] - [address] [place] [phone] Health Maintenance Due Date Last Done Comments Hepatitis B Vaccines (1 of 3 - 19+ 3-dose series) 1984 Pneumococcal Vaccine: 50+ Years (1 of 2 - PCV) 1984 Pneumococcal Vaccine: Pediatrics (0 to 5 Years) and At-Risk Patients (6 to 64 Years) (1 of 2 - PCV) 1984 Zoster Vaccines (1 of 2) 12/29/2015 Cervical Cancer Screening: Pap Smear 04/05/2020 04/05/2017 Colorectal Cancer Screening: Stool Based Tests (FOBT/FIT) 06/13/2022 HIV Screening 06/13/2022 Medicare Annual Wellness Visit 06/13/2022 COVID-19 Vaccine ( season) 2024 10/07/2021, 03/08/2021, 02/15/2021 Influenza Vaccine (Season Ended) 2025 06/10/2022 Social Influencers of Health Screening 06/15/2025 06/15/2024 Depression Screening 08/02/2025 08/02/2024 Hypertension/CHF/CAD Annual BMP Blood Test 10/05/2025 10/05/2024, 10/05/2024, 06/15/2024, Additional history exists Breast Cancer Screening 11/24/2025 11/25/19 24, 11/25/2023, 10/03/2021, Additional history exists Cholesterol Screening (Lipid Panel) 06/15/2029 06/15/2024, 03/03/2023, 03/03/2023 DTaP,Tdap,and Td Vaccines (2 - Td or Tdap) 08/02/2029 08/02/2019 Hepatitis C Screening Completed 02/02/2018 Colorectal Cancer Screening: FIT-DNA (Cologuard) Discontinued 03/21/2024 Colorectal Cancer Screening: Colonoscopy Discontinued 04/11/2024 HIB Vaccines Aged Out No longer eligi ble based on patient's age to complete this topic HPV Vaccines Aged Out No longer eligi ble based on patient's age to complete this topic Hepatitis A Vaccines Aged Out No long er eligible based on patient's age to complete this topic IPV Vaccines Aged Out No longer eligi ble based on patient's age to complete this topic MMR Vaccines Aged Out No longer eligi ble based on patient's age to complete this topic Meningococcal ACWY Vaccine Aged Out N o longer eligible based on patient's age to complete this topic Meningococcal B Vacine Aged Out No lo nger eligible based on patient's age to complete this topic RSV Immunization Patients Under 20 months Aged Out No longer eligible based on patient's age to complete this topic Varicella Vaccines Aged Out No longer eligible based on patient's age to complete this topic Procedures Procedure Name Priority Date/Time Associated Diagnosis Comments CT PELVIS W CONTRAST STAT 10/06/2024 1:40 AM EDT HEMOGLOBIN AND HEMATOCRIT STAT 10/06/2024 12:25 AM EDT B-TYPE NATRIURETIC PEPTIDE STAT 10/05/2024 10:36 PM EDT TROPONIN I HIGH SENSITIVITY STAT 10/05/2024 10:36 PM EDT ECG 12-LEAD STAT 10/05/2024 10:26 PM EDT MANUAL DIFFERENTIAL - SYSMEX WAM STAT 10/05/2024 8:06 PM EDT CBC WITH AUTO DIFFERENTIAL STAT 10/05/2024 8:06 PM EDT TYPE AND SCREEN STAT 10/05/2024 8:06 PM EDT MAGNESIUM STAT 10/05/2024 8:06 PM EDT LIPASE STAT 10/05/2024 8:06 PM EDT COMPREHENSIVE METABOLIC PANEL STAT 10/05/2024 8:06 PM EDT CBC AND DIFFERENTIAL STAT 10/05/2024 8:06 PM EDT TROPONIN I HIGH SENSITIVITY STAT 10/05/2024 8:06 PM EDT ECG 12-LEAD STAT 10/05/2024 7:59 PM EDT RBC MORPHOLOGY REVIEW Routine 10/05/2024 11:10 AM EDT Iron deficiency anemia secondary to inadequate dietary iron intake CBC WITH AUTO DIFFERENTIAL Routine 10/05/2024 11:10 AM EDT Iron deficiency anemia secondary to inadequate dietary iron intake COMPREHENSIVE METABOLIC PANEL Routine 10/05/2024 11:10 AM EDT Pre-operative examination HEMOGLOBIN A1C Routine 10/05/2024 11:10 AM EDT Elevated random blood glucose level CBC AND DIFFERENTIAL Routine 10/05/2024 11:10 AM EDT Iron deficiency anemia secondary to inadequate dietary iron intake IRON AND TIBC Routine 10/05/2024 11:10 AM EDT Iron deficiency anemia secondary to inadequate dietary iron intake FERRITIN Routine 10/05/2024 11:10 AM EDT Iron deficiency anemia secondary to inadequate dietary iron intake ECG 12-LEAD Routine 07/19/2024 10:59 AM EST Paroxysmal atrial fibrillation (CMS/HCC) LIPID PANEL WITH REFLEX TO DIRECT LDL Routine 06/15/2024 9:28 AM EST Hyperlipidemia, unspecified hyperlipidemia type COLONOSCOPY Routine 04/11/2024 [facility] SCREENING DIGITAL Routine 11/25/2023 1:13 PM EDT Encounter for screening mammogram for malignant neoplasm of breast HEPATITIS C SCREENING Routine 02/02/2018 PAP SMEAR Routine 04/05/2017 from Last 3 Months or Most Recently Relevant to Health Maintenance Results * CT Pelvis w Contrast (10/06/2024 1:40 AM EDT) Anatomical Region Laterality Modality Body, Pelvis Computed Tomogra phy 10/06/2024 2:17 AM EDT Impressions 10/06/2024 2:17 AM EDT 1. Stranding /edema within the subcutaneous fat overlying the left hip which is likely related to reported recent left hip replacement surgery. A fluid collection just superficial to the IT band with internal Hounsfield units measuring 2 consistent with simple fluid. This fluid collection measures 4.6 x 2.4 x 7.8 cm. Favor a postoperative related seroma. The hip arthroplasties resulting in metallic beam hardening artifact partially obscuring visualization of surrounding structures This document has been electronically signed by: Jordi Ceballos DO on 10/06/2024 02:17:41 Narrative 10/06/2024 2:17 AM EDT INDICATION: ?post op bleed, sp left hip replacement CT pelvis with IV contrast Comparison: None Findings: Atherosclerosis of the visualized distal abdominal aorta extending into the iliac vasculature. The portion of the inferior liver, gallbladder, and kidneys are included on the current field of view. Dilated urinary bladder. Atrophied uterus. [id number] colonic fecal burden. The appendix is normal. No evidence for obstruction. Degenerative changes of the lower lumbar spine. Bilateral hip arthroplasties. Stranding and edema within the subcutaneous fat overlying the left hip which is likely related to reported recent left hip replacement surgery. A fluid collection just superficial to the IT band with internal Hounsfield units measuring 2 consistent with simple fluid. This fluid collection measures 4.6 x 2.4 x 7.8 cm. Favor a postoperative related seroma. The hip arthroplasties resulting in metallic beam hardening artifact partially obscuring visualization of surrounding structures Procedure Note Jordi Ceballos MD - 10/06/2024 INDICATION: ?post op bleed, sp left hip replacement CT pelvis with IV contrast Comparison: None Findings: Atherosclerosis of the visualized distal abdominal aorta extending into the iliac vasculature. The portion of the inferior liver, gallbladder, and kidneys are included on the current field of view. Dilated urinary bladder. Atrophied uterus. [id number] colonic fecal burden. The appendix is normal. No evidence for obstruction. Degenerative changes of the lower lumbar spine. Bilateral hip arthroplasties. Stranding and edema within the subcutaneous fatoverlying the left hip which is likely related to reported recent left hip replacement surgery. A fluid collection just superficial to the IT band with internal Hounsfield units measuring 2 consistent with simple fluid. This fluid collection measures 4.6 x 2.4 x 7.8 cm. Favor a postoperative related seroma. The hip arthroplasties resulting in metallic beam hardening artifact partially obscuring visualization of surrounding structures IMPRESSION: 1. Stranding /edema within the subcutaneous fat overlying the left hip which is likely related to reported recent left hip replacement surgery.A fluid collection just superficial to the IT band with internalHounsfield units measuring 2 consistent with simple fluid. This fluid collection measures 4.6 x 2.4 x 7.8 cm. Favor a postoperative related seroma. Thehip arthroplasties resulting in metallic beam hardening artifact partially obscuring visualization of surrounding structures This document has been electronically signed by: Jordi Ceballos DO on 10/06/2024 02:17:41 Lana YANG [facility] CT PROCEDURES Final Result * (ABNORMAL) Hemoglobin and hematocrit, blood (10/06/2024 12:25 AM EDT) [facility] Signature Hemoglobin 9.0(L) 11.5 - 16.0 g/dL LAB HEMETOLOGY METHOD 10/06/2024 1:01 AM EDT [facility] Hematocrit 25.7(L) 35.0 - 47.0 % LAB HEMETOLOGY METHOD 10/06/2024 1:01 AM EDT [facility] Blood Venous blood specimen / Unknown Venipuncture / Unknown 10/06/2024 12:25 AM EDT 10/06/2024 12:56 AM EDT Lana YANG LAB BLOOD ORDERABLES Final Resul t Performing Organization Address [facility]/ZIP Co de Phone Number [facility] [address] [place] [address], [place] [phone] * Troponin I high sensitivity (10/05/2024 10:36 PM EDT) Only the most recent of2 resultswithin the time period is included. Pathologist [facility] High Sensitivity Troponin I 4 <=54 ng/L LAB CHEMISTRY METHOD 10/05/2024 11:29 PM EDT [facility] Blood Venous blood specimen / Unknown Venipuncture / Unknown 10/05/2024 10:36 PM EDT 10/05/2024 10:58 PM EDT Narrative [facility] - 10/05/2024 11:29 PM EDT High levels of biotin in samples may falsely decrease hsTroponin values. ??Use caution when interpreting hsTroponin results in patients taking biotin who exhibit renal impairment (eGFR <60) or in patients taking more than 20 mg/day of biotin. us Sandra Polanco DO LAB BLOOD ORDERABLES [place] Result Performing Organization Address City/[facility]/ZIP Co de Phone Number [facility] [address] [place] [address], [place] [phone] * B-type natriuretic peptide (10/05/2024 10:36 PM EDT) [facility] BNP 18 <=100 pcg/mL LAB CHEMISTRY METHOD 10/05/2024 11:36 PM EDT [facility] Blood Venous blood specimen / Unknown Venipuncture / Unknown 10/05/2024 10:36 PM EDT 10/05/2024 10:58 PM EDT us Sandra Polanco DO LAB BLOOD ORDERABLES [place] Result [facility] [address] [place] [address], [place] [phone] * (ABNORMAL) Manual differential (10/05/2024 8:06 PM EDT) Neutrophils % 64.0 % LAB HEMETOLOGY METHOD 10/05[facility]2024 [facility] Lymphocytes % 25.0 % LAB HEMETOLOGY METHOD 10/05/2024 9:05 PM EDT [facility] Monocytes % 10.0 % LAB HEMETOLOGY METHOD 10/05/2024 9:05 PM EDT [facility] Eosinophils % 0.0 % LAB HEMETOLOGY METHOD 10/05/2024 9:05 PM EDT [facility] Basophils % 0.0 % LAB HEMETOLOGY METHOD 10/05/2024 9:05 PM [facility] Myelocytes % 2.0(H) % LAB HEMETOLOGY METHOD 10/05/2024 9:[facility] Neutrophils Absolute Manual 9.79(H) 1.50 - 7.00 K/mcL LAB HEMETOLOGY METHOD 10/05/2024 9:05 [facility] Lymphocytes Absolute 3.83 1.00 - 5.00 K/mcL LAB HEMETOLOGY METHOD 10/05/2024 9:05 [facility] Monocytes Absolute Manual 1.53(H) 0.20 - 1.00 K/mcL LAB HEMETOLOGY METHOD 10/05/2024 9:05 PM EDT [facility] Eosinophils Absolute Manual 0.00 0.00 - 0.50 K/mcL LAB HEMETOLOGY METHOD 10/05/2024 9:05 PM EDT [facility] Basophils Absolute Manual 0.00 0.00 - 0.20 K/mcL LAB HEMETOLOGY METHOD 10/05/2024 9:05 PM EDT [facility] Myelocytes Absolute Manual 0.31(H) 0.00 - 0.00 K/mcL LAB HEMETOLOGY METHOD 10/05/2024 9:05 PM EDT [facility] Rbc Morphology Present( A) Consistent with indices, Normal for LAB HEMETOLOGY METHOD 10/05/2024 9:05 PM EDT [facility] Comment:RBC: Morphology agre es with CBC Platelet Morphology - WAM See Note(A) Normal LAB HEMETOLOGY METHOD 10/05/2024 9:05 PM EDT [facility] Comment:PLT: Normal Polychromasia Present Present( A) (none) LAB HEMETOLOGY METHOD 10/05/2024 9:05 PM EDT [facility] Blood Venous blood specimen / Unknown Venipuncture / Unknown 10/05/2024 8:06 PM EDT 10/05/2024 8:33 PM EDT us Sandra Polanco DO LAB BLOOD ORDERABLES [place] Result [facility] [address] [place] [address], [place] [phone] * (ABNORMAL) CBC auto differential (10/05/2024 8:06 PM EDT) Only the most recent of2 resultswithin the time period is included. WBC 15.3(H) 4.8 - 10.8 K/mcL LAB HEMETOLOGY METHOD 10/05/2024 9:05 PM EDT [facility] RBC 2.70(L) 3.80 - 4.80 M/mcL LAB HEMETOLOGY METHOD 10/05/2024 9:05 PM [facility] Hemoglobin 8.4(L) 11.5 - 16.0 g/dL LAB HEMETOLOGY METHOD 10/05/2024 9:05 PM [facility] Hematocrit 25.5(L) 35.0 - 47.0 % LAB HEMETOLOGY METHOD 10/05/2024 9:05 PM [facility] MCV 94.1 79.0 - 98.0 FL LAB HEMETOLOGY METHOD 10/05/2024 9:05 PM [facility] MCH 31.0 27.0 - 32.0 pcg LAB HEMETOLOGY METHOD 10/05/2024 9:05 PM [facility] MCHC 32.9 32.0 - 37.0 g/dL LAB HEMETOLOGY METHOD 10/05/2024 9:05 PM [facility] RDW 12.2 11.0 - 15.0 % LAB HEMETOLOGY METHOD 10/05/2024 9:05 PM [facility] Platelets 611(H) 130 - 400 K/mcL LAB HEMETOLOGY METHOD 10/05/2024 9:05 PM [facility] MPV 8.7 7.0 - 11.0 FL LAB HEMETOLOGY METHOD 10/05/2024 9:05 PM [facility] NRBC 0.0 <1.0 % LAB HEMETOLOGY METHOD 10/05/2024 9:05 PM [facility] NRBC Absolute 0.00 <0.10 K/mcL LAB HEMETOLOGY METHOD 10/05/2024 9:05 PM [facility] Blood Venous blood specimen / Unknown Venipuncture / Unknown 10/05/2024 8:06 PM EDT 10/05/2024 8:33 PM EDT us Sandra Polanco LAB BLOOD ORDERABLES [place] Result Performing Organization Address City/[facility]/ZIP Co de Phone Number [facility] [address] [place] [address], [place] [phone] * Type and screen (10/05/2024 8:06 PM EDT) ABO Group O 10/05/2024 9:07 PM EDT [facility] Rh Type Positive 10/05/2024 9:07 PM EDT [facility] Antibody Screen Negative 10/05/2024 9:07 PM EDT [facility] Blood Venous blood specimen / Unknown Venipuncture / Unknown 10/05/2024 8:06 PM EDT 10/05/2024 8:29 PM EDT Sandra Polanco LAB BLOOD BANK TEST ORDER JOSEFINA Final Result Performing Organization Address [facility]/ZIP Co de Phone Number [facility] [address] [place] [address], [place] [phone] * Magnesium (10/05/2024 8:06 PM EDT) Magnesium 2.1 1.9 - 2.6 mg/dL LAB CHEMISTRY METHOD 10/05/2024 8:53 PM EDT [facility] Blood Venous blood specimen / Unknown Venipuncture / Unknown 10/05/2024 8:06 PM EDT 10/05/2024 8:29 PM EDT us Sandra Polanco LAB BLOOD ORDERABLES [place] Result Performing Organization Address City/[facility]/ZIP Co de Phone Number [facility] [address] [place] [address], [place] [phone] * Lipase (10/05/2024 8:06 PM EDT) Pathologist [facility] Lipase 35 13 - 75 unit/L LAB CHEMISTRY METHOD 10/05/2024 8:53 PM EDT [facility] Blood Venous blood specimen / Unknown Venipuncture / Unknown 10/05/2024 8:06 PM EDT 10/05/2024 8:29 PM EDT Sandra Polanco DO LAB BLOOD ORDERABLES [place] Result [facility] [address] [place] [address], * (ABNORMAL) Comprehensive metabolic panel (10/05/2024 8:06 PM EDT) Only the most recent of2 resultswithin the time period is included. Pathologist [facility] Sodium 130(L) 133 - 145 mmol/L LAB CHEMISTRY METHOD 10/05/2024 8:53 PM [facility] Potassium 4.8 3.5 - 5.5 mmol/L LAB CHEMISTRY METHOD 10/05/2024 8:53 PM [facility] Chloride 99 96 - 110 mmol/L LAB CHEMISTRY METHOD 10/05/2024 8:53 PM [facility] CO2 24 21 - 32 mmol/L LAB CHEMISTRY METHOD 10/05/2024 8:53 PM [facility] Anion Gap 7 3 - 11 LAB CHEMISTRY METHOD 10/05/2024 8:53 PM [facility] Glucose 119(H) 70 - 100 mg/dL LAB CHEMISTRY METHOD 10/05/2024 8:53 PM [facility] BUN 9 5 - 25 mg/dL LAB CHEMISTRY METHOD 10/05/2024 8:53 PM [facility] Creatinine 0.68 0.50 - 1.10 mg/dL LAB CHEMISTRY METHOD 10/05/2024 8:53 PM EDT [facility] eGFR 101 >=60 mL/min/1. 73m2 LAB CHEMISTRY METHOD 10/05/2024 8:53 PM T [facility] Comment:Calculation based on the??Chronic Kidney Disease Epidemiology Collaboration (CKD-EPI) equation refit??without adjustment for race. BUN/Creatinine Ratio 13.2 LAB CHEMISTRY METHOD 10/05/2024 8:53 PM EDT [facility] Calcium 9.0 8.5 - 10.5 mg/dL LAB CHEMISTRY METHOD 10/05/2024 8:53 PM [facility] AST (SGOT) 28 10 - 42 unit/L LAB CHEMISTRY METHOD 10/05/2024 8:53 PM [facility] ALT (SGPT) 35 10 - 60 unit/L LAB CHEMISTRY METHOD 10/05/2024 8:53 PM [facility] Alkaline Phosphatase 121 42 - 121 unit/L LAB CHEMISTRY METHOD 10/05/2024 8:53 PM [facility] Total Protein 6.3 6.0 - 8.0 g/dL LAB CHEMISTRY METHOD 10/05/2024 8:53 PM [facility] Albumin 3.2 3.2 - 5.0 g/dL LAB CHEMISTRY METHOD 10/05/2024 8:53 PM [facility] Total Bilirubin 0.4 0.0 - 1.4 mg/dL LAB CHEMISTRY METHOD 10/05/2024 8:53 PM T [facility] Blood Venous blood specimen / Unknown Venipuncture / Unknown 10/05/2024 8:06 PM EDT 10/05/2024 8:29 PM EDT us Sandra Polanco DO LAB BLOOD ORDERABLES [place] Result [facility] [address] [place] [address], [place] [phone] * ECG 12 lead (10/05/2024 7:59 PM EDT) Only the most recent of2 resultswithin the time period is included. Ventricular Rate ECG 75 BPM GEMUSE Atrial Rate 75 BPM GEMUSE P-R Interval 156 ms GEMUSE QRS Duration 72 ms GEMUSE Q-T Interval 374 ms GEMUSE QTc 417 ms GEMUSE P Wave Williamson 66 degrees GEMUSE R Williamson 24 degrees GEMUSE T Williamson 47 degrees GEMUSE ECG Interpretation Normal sinus rhythm Normal ECG When compared with ECG of 19-JUL-2024 10:59, No significant change was found Confirmed by Leonard GARDNER YUFENG ([id number]) on 10/05/2024 9:14:19 PM GEMUSE 10/05/2024 7:59 PM EDT 10/05/2024 9:14 PM EDT us Sandra Polanco DO ECG ORDERABLES Final Res ult Performing Organization Address City/[facility]/ZIP Co de Phone Number GEMUSE * (ABNORMAL) RBC morphology review (10/05/2024 11:10 AM EDT) Rbc Morphology See comment( A) Consistent with indices, Normal for [place] LAB HEMETOLOGY METHOD 10/05/2024 2:32 PM EDT [facility] Comment:RBC: Morphology agre es with CBC Platelet Morphology - WAM See Note(A) Normal LAB HEMETOLOGY METHOD 10/05/2024 2:32 PM EDT [facility] Comment:PLT: Large platelets seen Giant platelets seen Blood Venous blood specimen / Unknown Venipuncture / Unknown 10/05/2024 11:10 AM EDT 10/05/2024 11:10 AM EDT us Sharon Arce MD LAB BLOOD ORDERABLES Final Resu lt [facility] [address] [place] [address], [place] [phone] * (ABNORMAL) Iron and TIBC (10/05/2024 11:10 AM EDT) Iron 38(L) 40 - 150 mcg/dL LAB CHEMISTRY METHOD 10/05/2024 4:39 PM EDT [facility] TIBC 348 250 - 450 mcg/dL LAB CHEMISTRY METHOD 10/05/2024 4:39 PM EDT [facility] Iron Saturation 11(L) 15 - 50 % LAB CHEMISTRY METHOD 10/05/2024 4:39 PM EDT [facility] Blood Venous blood specimen / Unknown Venipuncture / Unknown 10/05/2024 11:10 AM EDT 10/05/2024 11:10 AM EDT Sharon Arce MD LAB BLOOD ORDERABLES Final Resu lt [facility] [address] [place] [address], [place] [phone] * Hemoglobin A1c (10/05/2024 11:10 AM EDT) Pathologist [facility] Hemoglobin A1C 6.0 <6.5 % LAB CHEMISTRY METHOD 10/05/2024 11:02 PM EDT [facility] Mean Bld Glu Estim. 126 mg/dL LAB CHEMISTRY METHOD 10/05/2024 11:02 PM EDT [facility] Blood Venous blood specimen / Unknown Venipuncture / Unknown 10/05/2024 11:10 AM EDT 10/05/2024 11:10 AM EDT us Sharon Arce MD LAB BLOOD ORDERABLES Final Resu lt [facility] [address] [place] [address], [place] [phone] * (ABNORMAL) Ferritin (10/05/2024 11:10 AM EDT) Ferritin 374(H) 8 - 252 ng/mL LAB CHEMISTRY METHOD 10/05/2024 4:39 PM EDT [facility] Blood Venous blood specimen / Unknown Venipuncture / Unknown 10/05/2024 11:10 AM EDT 10/05/2024 11:10 AM EDT us Sharon Arce MD LAB BLOOD ORDERABLES Final Resu lt [facility] [address] [place] [address], [place] [phone] * Lipid panel with reflex to direct LDL (06/15/2024 9:28 AM EST) Cholesterol 128 0 - 200 mg/dL LAB CHEMISTRY METHOD 06/15/2024 1:58 PM EST [facility] Triglycerides 138 0 - 150 mg/dL LAB CHEMISTRY METHOD 06/15/2024 1:58 PM EST [facility] HDL 48 >=40 mg/dL LAB CHEMISTRY METHOD 06/15/2024 1:58 PM EST [facility] LDL Calculated 52 0 - 100 mg/dL LAB CHEMISTRY METHOD 06/15/2024 1:58 PM EST [facility] VLDL Cholesterol Cam 27.6 mg/dL LAB CHEMISTRY METHOD 06/15/2024 1:58 PM EST [facility] Non HDL Chol. (LDL+VLDL) 80 <145 mg/dL LAB CHEMISTRY METHOD 06/15/2024 1:58 PM EST [facility] Chol/HDL Ratio 2.7 0.0 - 4.4 LAB CHEMISTRY METHOD 06/15/2024 1:58 PM [facility] Blood Venous blood specimen / Unknown Venipuncture / Unknown 06/15/2024 9:28 AM EST 06/15/2024 9:28 AM EST Radha Mcgregor [employer] LAB BLOOD ORDERABLES Final Resu lt [facility] [address] [place] [address], * Colonoscopy (04/11/2024) Colonoscopy Abstracted, No Interpretation Anatomical Region Laterality Modality Other Historical Provider HEALTH MAINTENANCE Final Result * GHADA SCREENING DIGITAL (11/25/2023 1:13 PM EDT) Anatomical Region Laterality Modality Mammography 11/25/2023 10:4 4 AM EDT Narrative 11/25/2023 1:13 PM EDT [facility] Diagnostic Imaging Department [address], [place] [id number] Patient: ??WILFRED GUERRA ?/Age/Sex: 1965 - 57 - F Unit#: ??[id number] ? Location/Status: ??SPDIMAM/REG CLI ? Mnemonic/Ordering Site: ??DIGSC/SPMAM Ordering Physician: ??SHARON ARCE MD Ghada Screening Digital - 11/25/23 - Report Status:Signed EXAM: Ghada Screening Digital EXAM DATE AND TIME: 11/25/2023 11:16 AM HISTORY: ??Screening. COMPARISON: ??10/03/21, 09/21/20, 03/16/19 TECHNIQUE: Bilateral digital breast tomosynthesis was performed in the CC and MLO projections. Computer aided detection with [employer] 3D 3.1 was employed. TISSUE DENSITY: c. The breasts are heterogeneously dense, which may obscure small masses. FINDINGS: No suspicious masses, grouped microcalcifications, or areas of architectural distortion are seen. Benign-appearing microcalcifications are without signi ficant change. Skin calcifications are present. The vascularity is unremarkable. IMPRESSION: Stable mammographic appearance of the breasts. ??No evidence of malignancy is seen. A negative mammogram in the presence of a clinically suspicious palpable abnormality does not preclude the possibility of malignancy or alter the indications for biopsy. BI-RADS: ??Category 2: Benign RECOMMENDATION(S): 1: Routine screening mammogram BILATERAL in 1 year. Dictating Physician: ??LUCIA ELIAS MD Electronically Signed by: ??LUCIA ELIAS MD Dic Date/Time: ??11/25/23 1312 Sign date/Time: ??11/25/23 1313 Procedure Note Lucia Elias MD - 02/21/2024 [facility] Diagnostic Imaging Department [address] [place] [address] Patient: CHARLIEWILFREDMoises GreenO.B./Age/Sex: 1965 - 57 - F Unit#: [id number] [facility]/Ordering Site: [facility] Ordering Physician: SHARON ARCE MD Ghada Screening Digital - 11/25/23 - Report Status:Signed EXAM: [facility] Screening Digital EXAM DATE AND TIME: 11/25/2023 11:16 AM HISTORY: Screening. COMPARISON: 10/03/21, 09/21/20, 03/16/19 TECHNIQUE: Bilateral digital breast tomosynthesis was performed in the CCand MLO projections. Computer aided detection with [employer] 3D 3.1was employed. TISSUE DENSITY: c. The breasts are heterogeneously dense, which mayobscure small masses. FINDINGS: No suspicious masses, grouped microcalcifications, or areas ofarchitectural distortion are seen. Benign-appearing microcalcifications are withoutsigni ficant change. Skin calcifications are present. The vascularity isunremarkable. IMPRESSION: Stable mammographic appearance of the breasts. No evidence of malignancyis seen. A negative mammogram in the presence of a clinically suspicious palpable abnormality does not preclude the possibility of malignancy or alter the indications for biopsy. BI-RADS: Category 2: Benign RECOMMENDATION(S): 1: Routine screening mammogram BILATERAL in 1 year. Dictating Physician: LUCIA ELIAS MD Electronically Signed by: LUCIA ELIAS MD Dic Date/Time: 11/25/23 1312 Sign date/Time: 11/25/23 1313 Sharon Arce MD IMG BI PROCEDURES Final Result * Hepatitis C Screening (02/02/2018) Hepatitis C Screening abstracted Historical Adonay NOEL HEALTH MAINTENANCE Final Result * Pap Smear (04/05/2017) Pap smear Abstracted,No Interpretation Historical Adonay NOEL HEALTH MAINTENANCE Final Result from Last 3 Months or Most Recently Relevant to Health Maintenance Insurance [place]ICA[place] - [place] MEDICARE [facility] Advance Directives Documents on File Type Date Recorded Patient Home Visitor Expl anation Health Care Decision (hx) 09/20/2018 AD SLAUGHTER DIRECTIVE Health Care Decision (hx) 09/20/2018 AD SLAUGHTER DIRECTIVE Health Care Decision (hx) 09/20/2018 AD SLAUGHTER DIRECTIVE Health Care Decision (hx) 09/20/2018 AD SLAUGHTER DIRECTIVE Health Care Decision (hx) 09/20/2018 AD SLAUGHTER DIRECTIVE Health Care Decision (hx) 09/20/2018 AD SLAUGHTER DIRECTIVE Health Care Decision (hx) 09/20/2018 AD SLAUGHTER DIRECTIVE Health Care Decision (hx) 09/20/2018 AD SLAUGHTER DIRECTIVE Health Care Decision (hx) 09/20/2018 AD SLAUGHTER DIRECTIVE Health Care Decision (hx) 09/20/2018 AD SLAUGHTER DIRECTIVE Health Care Decision (hx) 09/20/2018 AD SLAUGHTER DIRECTIVE Health Care Decision (hx) 09/20/2018 AD SLAUGHTER DIRECTIVE Health Care Decision (hx) 09/20/2018 AD SLAUGHTER DIRECTIVE Health Care Decision (hx) 09/20/2018 YONNY SLAUGHTER DIRECTIVE Care Teams Rda Relationship Specialty Start Date End Date Sharon Arce MD [address] [place] [address] [place] [address] PCP - General Internal Medicine 06/15/24
--- NOTE | 2024-10-06 08:24 | PC.NURSE ---
Pt had dressing to L hip change by orthopedic PA-C; reports 7/10 pain to L hip, but is able to ambulate slowly to BR with walker; + DP pulses bilaterally; MD at bedside
--- NOTE | 2024-10-06 08:30 | PM.CNOR ---
History of Present Illness HPI Consult date: 10/06/24 Chief complaint: Post-operative hip replacement complications Narrative: 58-year-old female who is 10 days status post left total hip arthroplasty on 09/26/[address] Westbrook. She was attending her routine follow up with her primary care physician yesterday when they did lab work which resulted in a hemoglobin and hematocrit of 8.4/25.0. The primary care office contacted the patient and directed her to the emergency department with concerns of anemia. While in the emergency department at [facility] [place] she was found to have a white count of 15. Afebrile. A CT scan of the left hip was obtained in the emergency department at [facility] [place] which was significant for a fluid collection thought to be a seroma. Patient is on Eliquis at baseline and has resumed this postoperatively. Patient denies fever or any worsening symptoms such as pain or swelling. She denies shortness of breath. Denies chest pain. She states she was in her normal state of health prior to her emergency department visit. Participating in physical therapy and ambulating with a walker without concerns. Review of Systems Review of Systems: Yes all other systems are reviewed and are negative [facility] Past Medical History Medical History Cervical spinal stenosis PVD (peripheral vascular disease) Family history of anesthesia complication Pre-diabetes GERD (gastroesophageal reflux disease) PAF (paroxysmal atrial fibrillation) NSTEMI (non-ST elevated myocardial infarction) IFG (impaired fasting glucose) NAFLD (nonalcoholic fatty liver disease) Arthritis Back pain Numbness of right hand FOSTER (dyspnea on exertion) Sleep apnea Elevated cholesterol HTN (hypertension) Surgical History Surgical History (Updated 09/29/24 @ 00:01 by Zaida Garcia) History of carpal tunnel release History of endometrial ablation Hx of cardiac catheterization History of total right hip replacement Hx of colonoscopy Social History Social History Household Members: Significant Other Housing: House Are you a primary health care manager to a significant other at home: No Do you presently have visiting nurse or other home services: No Comment: uses cane or walker at times Patient Tobacco Use Status: Never used Tobacco Tobacco use type: Cigarette Cigarette Packs Per Day: 1 Cigarettes Per Day: 20.0 Years Smoked: 42 Smoked in Last 30 Days: Yes e-Cigarette/Vaping Use: Never Used Use of substances other than those prescribed or required for medical reasons: Yes Substance Use Type: Marijuana Substance Use Frequency: Chronic Longstanding Last Used Substance: Unknown Advance Directives: No Advance Directives Information Provided: Yes Do you have a plan to hurt others: No Plan Patient : No service: No Current occupational status: unemployed Meds Allergies Allergy/AdvReac Type Severity Reaction Status Date / Time hydrocodone [From Vicodin] AdvReac Severe Nausea and Verified 10/06/24 06:34 Vomiting amoxicillin [From Augmentin] AdvReac Intermediate Diarrhea Verified 10/06/24 06:34 clavulanic acid AdvReac Intermediate Diarrhea Verified 10/06/24 06:34 [From Augmentin] Penicillins AdvReac Intermediate Diarrhea Verified 10/06/24 06:34 Home Medications ?Medication ?Instructions ?Recorded ?Confirmed ?Last Taken ?Type albuterol sulfate 90 mcg/actuation 2 puff inhalation Q4H PRN wheezing 08/16/23 09/21/24 09/26/24 History aerosol inhaler apixaban 5 mg tablet (Eliquis) 5 mg PO BID 08/16/23 09/21/24 09/23/24 History aspirin 81 mg tablet,delayed 81 mg PO QAM 08/16/23 09/21/24 09/26/24 History release atorvastatin 80 mg tablet 80 mg PO BEDTIME 08/16/23 09/21/24 09/25/24 History diltiazem HCl 240 mg 240 mg PO QAM 08/16/23 09/21/24 09/26/24 History capsule,extended release 24 hr lisinopril 10 mg tablet 10 mg PO BEDTIME 08/16/23 09/21/24 09/25/24 History lorazepam 0.5 mg tablet 0.5 mg PO DAILY PRN anxiety 08/16/23 08/29/24 09/25/24 History nitroglycerin 0.4 mg sublingual 0.4 mg sublingual DIRECTED PRN 08/16/23 08/29/24 Unknown History tablet Chest Pain omega 1-sin-ejd-fish oil 1,000 mg 1 cap PO QAM 08/16/23 08/29/24 09/17/24 History (120 mg-180 mg) capsule (Fish Oil) biotin 1,000 mcg chewable tablet 1,000 mcg PO DAILY 08/28/24 08/29/24 09/17/24 History aojbmjp-swoucbakc-odlk 333 mg-133 1 tab PO DAILY 08/28/24 08/29/24 09/17/24 History mg-5 mg tablet cholecalciferol (vitamin D3) 50 50 mcg PO DAILY 08/28/24 08/29/24 09/17/24 History mcg (2,000 unit) tablet (Vitamin D3) lactobacillus combination no.4 3 3,000 mmu cells PO DAILY 08/28/24 08/29/24 09/17/24 History billion cell capsule (Probiotic) multivitamin 1 tab PO QAM 08/28/24 08/29/24 09/17/24 History omeprazole 20 mg tablet,delayed 20 mg PO DAILY 09/26/24 09/26/24 Unknown History release Physical Exam Vital Signs: Vital Signs: Last Vital Signs Temp 98.2 F 10/06/24 06:16 Pulse 83 10/06/24 06:16 Resp 16 10/06/24 06:16 BP 120/49 L 10/06/24 06:16 Pulse Ox 96 10/06/24 06:16 O2 Del Method Room Air 10/06/24 06:16 BMI result Body Mass Index 28.7 Const: General: cooperative, healthy appearing, comfortable and no acute distress Extrem: Other: Left hip bandage is saturated with blood. Bandage removed incision is clean dry and intact. She does have surrounding swelling with hematoma and scant ecchymosis. No redness or tenderness to palpation around the incision. No significant swelling or ecchymosis in the lower extremity. Calf is supple and nontender. Pulses are intact and sensation intact. Results Labs Labs: All other labs normal. Assessment and Plan (1) S/P total left hip arthroplasty: Status: Acute (2) Hip hematoma, left: Status: Acute Plan I feel there is no evidence of acute infection at this time. I explained to the patient with the nature of the surgery and her being on Eliquis there are risks for hematoma which appears to be the case at this time. I encouraged her to continue with weight-bearing as tolerated with a walker. Elevating the left lower extremity above heart level. Icing the incision area and taking some pressure off the incision site when resting. She should continue to work with physical therapy for gait training and strengthening exercises. Posterior precautions intact. She does have a postop appointment in our office on October 12 which she will attend. No need for further orthopedic intervention at this time. Procedures Date of Service Date of Service: 10/06/24
[2024-10-06] MEDS: oxyCODONE HCl Immed Release 5 MG TABLET PO (08:42)
[2024-10-06 09:10] VITALS: BP 119/65; PULSE 86; RESP 16; TEMP 36.8; O2SAT 96
[2024-10-06 09:11] VITALS: BP 119/65; PULSE 86; RESP 16; TEMP 36.8; O2SAT 96
== END 2024-10-06 09:15 | disposition home or self-care (01) ==
PROVIDERS: Emergency Provider Emergency Medicine
DX: M96.842 Postprocedural seroma of a musculoskeletal structure following a musculoskeletal system procedure (principal); Z96.642 Presence of left artificial hip joint; Z79.899 Other long term (current) drug therapy
CPT/HCPCS: 96374; 99284; J2405

== ENCOUNTER → 2024-10-06 06:48 | Outpatient (BNV) | payer MEDICARE, MEDICAID, SELFPAY | PROVIDERS: Emergency Provider Emergency Medicine; Visit Provider Physician Assistant | DX: Z47.1 Aftercare following joint replacement surgery (principal); Z96.642 Presence of left artificial hip joint; S70.02XA Contusion of left hip, initial encounter | CPT/HCPCS: 99024 ==

== ENCOUNTER 2024-10-12 12:24 | Outpatient (AMB) | payer MEDICARE, MEDICAID, SELFPAY ==
[2024-10-12 12:37] VITALS: BMI 28.7
--- NOTE | 2024-10-12 12:37 | MHC.OFFVIS ---
Vital Signs 10/12/24 12:37 Height 5 ft 6 in Weight 178 lb BMI 28.7 Intake Visit Reasons: 2WK PO: L STEVE w/NE 09/26/24 Intake Note: Naomi 58 yr old female presents today for her P/O visit for her left STEVE from 09/26/24. States she is doing well if she keeps up with her pain medication. States she missed a dose last night and woke up with pain. Also mentioned she has swelling in her ankle. Allergies hydrocodone [From Vicodin] Adverse Reaction (Severe, Verified 10/12/24 12:47) Nausea and Vomiting amoxicillin [From Augmentin] Adverse Reaction (Intermediate, Verified 10/12/24 12:47) Diarrhea clavulanic acid [From Augmentin] Adverse Reaction (Intermediate, Verified 10/12/24 12:47) Diarrhea Penicillins Adverse Reaction (Intermediate, Verified 10/12/24 12:47) Diarrhea Medication List - Last Reviewed 10/12/24 by MOUNIKA Weir acetaminophen 650 mg (2 x 325 mg) PO Q6H PRN 30 days albuterol sulfate 90 mcg/actuation 2 puffs inhalation Q4H PRN apixaban (Eliquis) 5 mg PO BID aspirin 81 mg PO QAM atorvastatin 80 mg PO BEDTIME biotin 1,000 mcg PO DAILY txtdwuh-nabqfaikc-oxys 333-133-5 mg 1 tab PO DAILY celecoxib 200 mg PO BID 30 days cholecalciferol (vitamin D3) (Vitamin D3) 50 mcg PO DAILY diltiazem HCl CD 240 mg PO QAM docusate sodium 100 mg PO BID 30 days enoxaparin 40 mg (0.4 mL) subcut Q24H 2 days ferrous gluconate 324 mg PO BID 30 days lactobacillus combination no.4 (Probiotic) 3,000 mmu cells PO DAILY lisinopril 10 mg PO BEDTIME lorazepam 0.5 mg PO DAILY PRN multivitamin 1 tab PO QAM nicotine 21 mg transdermal DAILY 30 days nitroglycerin 0.4 mg sublingual DIRECTED PRN omega 6-dcc-tph-fish oil 1,000 (120-180) mg (Fish Oil) 1 cap PO QAM omeprazole 20 mg PO DAILY ondansetron 8 mg PO Q12H 15 days oxycodone 5 mg PO Q4H PRN 7 days [Raised toilet seat duration - 99 days] walker Folding Front wheeled walker HPI HPI 2WK PO: L STEVE w/NE 09/26/24: Details: 58-year-old female returns to the office today 2 weeks status post left total hip arthroplasty on 09/26/[address] Westbrook. She continues to work with physical therapy and is ambulating with a walker. Her pain is well tolerated with her postop medication. She continues to take her Eliquis. [facility] Medical History Cervical spinal stenosis PVD (peripheral vascular disease) Family history of anesthesia complication Pre-diabetes GERD (gastroesophageal reflux disease) PAF (paroxysmal atrial fibrillation) NSTEMI (non-ST elevated myocardial infarction) IFG (impaired fasting glucose) NAFLD (nonalcoholic fatty liver disease) Arthritis Back pain Numbness of right hand FOSTER (dyspnea on exertion) Sleep apnea Elevated cholesterol HTN (hypertension) Surgical History History of carpal tunnel release History of endometrial ablation Hx of cardiac catheterization History of total right hip replacement Hx of colonoscopy Social History Household Members: Significant Other Housing: House Are you a primary daytime caregiver to a significant other at home: No Do you presently have visiting nurse or other home services: No Comment: uses cane or walker at times Patient Tobacco Use Status: Never used Tobacco Tobacco use type: Cigarette Cigarette Packs Per Day: 1 Cigarettes Per Day: 20.0 Years Smoked: 42 e-Cigarette/Vaping Use: Never Used Substance Use Type: Marijuana service: No Current occupational status: unemployed Review of Systems Const All systems reviewed & are unremarkable except as noted in HPI and below Physical Exam Vital Signs: BMI result Body Mass Index 28.7 Const General: cooperative and no acute distress Orientation/consciousness: patient oriented x3 Resp Effort & Inspection: normal respiratory effort and able to speak in complete sentences Cardio Peripheral pulses: Peripheral pulses 2+ throughout Neuro General: patient oriented x3 Extrem Other: Left hip incision clean dry and intact. Mild swelling around the incision no erythema. No pain with range of motion or hip flexion. Calf supple and nontender neurovascularly intact. Assessment & Plan Assessment & Plan (1) S/P total left hip arthroplasty: Code(s): Z96.642 - Presence of left artificial hip joint Category: Surgical Plan: Rashid removed today Steri-Strips applied. She will begin outpatient physical therapy on Wednesday at the [facility] facility and [place]. Order for therapy was faxed over. She will continue with therapy to work on strength and gait training exercises. She understands we recommend no driving for another 4 weeks. She will see us back in 4 weeks for re-evaluation, sooner if needed. Coding Level of Care Code Global (26700) Diagnoses S/P total left hip arthroplasty Z96.642
--- OUTSIDE RECORDS SUMMARY | 2024-10-12 14:52 | XMS_ITS | Clinical Summary ---
Author Organization [employer] Address [address] [place] [address] Care Team Providers Care Machine Design Engineer Name Role Phone Sharon Arce MD Primary Care Provider [phone] Allergies Active Allergy Reactions Criticality Noted Date [...] 81 mg EC tabletIndications :Unspecified atrial fibrillation (CMS/HCC V24, CMS/HCC V28) TAKE 1 TABLET BY MOUTH EVERY DAY [...] and replace cap. 48 g 025 Active ferrous gluconate (FERGON) 324 mg (38 mg iron) tablet Take 1 tablet (324 mg total) by mouth 1 (one) time each day. 30 each 11 025 2025 Active atorvastatin (LIPITOR) 80 mg tablet Take 1 tablet (80 mg total) by mouth 1 (one) time each day. 2024 Discontinued celecoxib (CeleBREX) 200 mg capsule [...] carotid Doppler exam. This was noted December demonstrated that she had a 50 to 69% stenosis of the right carotid artery. This was noted in October 2020. I will repeat her carotid Doppler in December 2022. Obstructive sleep apnea 06/26/2020 Overview (05/23/2024): [facility] Home Sleep Apnea Test: Date 06/14/2020; Wt [...] high intensity statin therapy. Paroxysmal atrial fibrillation ([facility] V24, [facility] V28) 06/05/2020 Overview (07/19/2024): - Hospitalized at [facility] in late May into early June 2020 where she was diagnosed (about 3 weeks after her [place] diagnosis) -Rate controlled and on Eliquis for [...] Orders: ECG 12 lead NSTEMI (non-ST elevated myoc ardial infarction) ([facility] V24, [facility] V28) 05/14/2020 Overview (07/19/2024): - Was hospitalized at [facility] in early May 2020 during which point [...] for new diagnosis of atrial fibrillation at [facility] at which point her amlodipine was [...] pressure once or twice a month at [facility] or [facility]. Resolved Problems Problem Noted Date Diagnosed Date Resolved Date Left ventricular hypertrophy 05/10/2023 07/19/2024 Overview (05/21/2024): Last Assessment & Plan: Have an echocardiogram in 2019 stating that the wall thickness was increased to 15 mm although an echocardiogram 2021 wall thickness appear to be okay. I am going to repeat the echocardiogram to see what her wall thickness is now. Coronary vasospasm (CMS/[facility] V24) 05/14/2020 07/19/2024 Overview (05/21/2024): Last Assessment & Plan: Type II demand IN with mild luminal irregularities based off cardiac [...] Description 10/05/2024 10:18 PM EDT - 10/06/2024 6:53 AM EDT Emergency [facility] Emergency [address] [place] [id number] Postoperative hematoma of musculoskeletal structure following musculoskeletal procedure (Primary Dx) Discharge Disposition: Another Health Care Institution Not Defined 10/05/2024 10:30 AM EDT [facility] [address] [place] [phone] Sharon Arce MD Hospital discharge follow-up (Primary Dx); Iron deficiency anemia secondary to inadequate dietary iron intake; Elevated random blood glucose level; History of total left hip replacement 10/05/2024 Telephone Pediatrics - [address] [phone] Sharon Arce MD Faxed Order (Peter GUYA (Certification/POC 09/28/24-11/26/24)) 10/02/2024 Telephone Pediatrics - [address] [phone] Sharon Arce MD Hospital Follow-up 08/25/2024 Telephone [facility] [address] [place] [phone] Sharno Arce MD Medical Records 08/03/2024 10:00 AM EST Consult Equipment Services Associate [facility] [address] [place] [phone] Sharon Arce MD Pre-op examination (Primary Dx) 07/19/2024 11:20 AM EST Office Visit [facility] [address] [place] [phone] Mirna Calzada MD Paroxysmal atrial fibrillation (CMS/HCC V24, CMS/HCC V28) (Primary Dx); Stenosis of carotid artery, unspecified laterality; Carotid bruit, unspecified laterality; Preop cardiovascular exam; NSTEMI (non-ST elevated myocardial infarction) ([facility] V24, [facility] V28); Primary hypertension; Smoker from Last 3 Months [...] for your loved ones. For example, child nutrition director or elderly care for an older adult? [...] EDT Office Visit Obstetrics and Gynecology - [address] [phone] Andie Acuña CNM [address] [place] [address] 12/21/2024 9:45 AM EDT Office Visit Internal Medicine - [address] [phone] Sharon Arce MD [address] [place] [address] 01/16/2025 10:45 AM EDT Ancillary Procedure [facility] - [facility] [address] [facility] [address] [place] [address] Health Maintenance Due Date Last Done Comments [...] age to complete this topic Meningococcal B Vaccine Aged Out No l onger eligible based on patient's age to complete [...] AND HEMATOCRIT STAT 10/06/2024 12:25 AM EDT ECG ANNOTATED 10/06/2024 XR CHEST 2 VIEWS STAT 10/05/2024 10:5 8 PM EDT B-TYPE NATRIURETIC PEPTIDE STAT 10/05/2024 10:36 [...] 07/19/2024 10:59 AM EST Paroxysmal atrial fibrillation (CMS/HCC V24, CMS/HCC V28) LIPID PANEL WITH REFLEX TO DIRECT LDL Routine 06/15/2024 9:28 AM EST Hyperlipidemia, unspecified hyperlipidemia type HM COLONOSCOPY Routine 04/11/2024 VESTA SCREENING DIGITAL Routine 11/25/2023 1:13 PM EDT [...] of view. Dilated urinary bladder. Atrophied uterus. [id number] colonic fecal burden. The appendix is normal. [...] of view. Dilated urinary bladder. Atrophied uterus. [id number] colonic fecal burden. The appendix is normal. [...] Ceballos DO on 10/06/2024 02:17:[address] PROCEDURES Final Result * (ABNORMAL) Hemoglobin and hematocrit, blood (10/06/2024 12:25 AM EDT) Hemoglobin 9.0(L) 11.5 - 16.0 g/dL LAB HEMETOLOGY METHOD 10/06/2024 1:01 AM EDT [facility] Hematocrit 25.7(L) 35.0 - 47.0 % LAB HEMETOLOGY METHOD 10/06/2024 1:01 AM EDT [facility] Blood Venous blood specimen / Unknown Venipuncture / Unknown 10/06/2024 12:25 AM EDT 10/06/2024 12:56 AM EDT Lana YANG LAB BLOOD ORDERABLES Final Resul t [facility] [address] [place] [address], [place] [phone] * ECG-Annotated (10/06/2024) Provider Onbase MD ECG ORDERABLES Final Result * XR Chest 2 Views (10/05/2024 10:58 PM EDT) Anatomical Region Laterality Modality Body Radiographic Shawna ging 10/06/2024 8:15 AM EDT Impressions 10/06/2024 8:16 AM EDT Normal chest radiographs. -------- FINAL REPORT -------- Dictated By: Orion Hill Dictated Date: 10/06/2024 08:15 ET Assigned Physician: Orion Hill Reviewed and Electronically Signed By: Orion Hill Signed Date: 10/06/2024 08:16 ET Workstation ID: [id number] Transcribed By: Self Edit Transcribed Date: 10/06/2024 08:15 ET Narrative 10/06/2024 8:16 AM EDT PROCEDURE: PA and lateral radiographs of the chest. HISTORY: chest pain. COMPARISON: 05/30/2020. FINDINGS: The heart, mediastinum, lungs, pleural spaces, and bony thorax are normal. Procedure Note Orion Hill MD - 10/06/2024 PROCEDURE: PA and lateral radiographs of the chest. HISTORY: chest pain. COMPARISON: 05/30/2020. FINDINGS: The heart, mediastinum, lungs, pleural spaces, and bony thorax arenormal. IMPRESSION: Normal chest radiographs. -------- FINAL REPORT -------- Dictated By: Orion Hill Dictated Date: 10/06/2024 08:15 ET Assigned Physician: Orion Hill Reviewed and Electronically Signed By: Orion Hill Signed Date: 10/06/2024 08:16 ET Workstation ID: [id number] Transcribed By: Self Edit Transcribed Date: 10/06/2024 08:15 ET us Sandra Polanco DO IMG XR PROCEDURES Final R esult * Troponin I high sensitivity (10/05/2024 10:36 PM EDT) Only the most recent of2 resultswithin the time period is included. High Sensitivity Troponin I 4 <=54 ng/L LAB CHEMISTRY METHOD 10/05/2024 11:29 PM EDT [facility] Blood Venous blood specimen / Unknown Venipuncture / Unknown 10/05/2024 10:36 PM EDT 10/05/2024 10:58 PM EDT Narrative [facility] - 10/05/2024 11:29 PM EDT High levels of biotin in samples may falsely decrease hsTroponin values. ??Use caution when interpreting hsTroponin results in patients taking biotin who exhibit renal impairment (eGFR <60) or in patients taking more than 20 mg/day of biotin. us Sandra Polanco DO LAB BLOOD ORDERABLES [place] l Result [facility] [address] [place] [address], [place] [phone] * B-type natriuretic peptide (10/05/2024 10:36 PM EDT) [facility] BNP 18 <=100 pcg/mL LAB CHEMISTRY METHOD 10/05/2024 11:36 PM EDT [facility] Blood Venous blood specimen / Unknown Venipuncture / Unknown 10/05/2024 10:36 PM EDT 10/05/2024 10:58 PM EDT us Sandra Polanco DO LAB BLOOD ORDERABLES [place] l Result Performing Organization Address [facility]/ZIP Co de Phone Number [facility] [address] [place] [address], [place] [phone] * ECG 12 lead (10/05/2024 10:26 PM EDT) Only the most recent of3 resultswithin the time period is included. [facility] Ventricular Rate ECG 79 BPM GEMUSE Atrial Rate 79 BPM GEMUSE P-R Interval 160 ms GEMUSE QRS Duration 70 ms GEMUSE Q-T Interval 370 ms GEMUSE QTc 424 ms GEMUSE P Wave [place] 63 degrees GEMUSE R [place] 19 degrees GEMUSE T [place] 48 degrees GEMUSE ECG Interpretation Normal sinus rhythm Normal ECG When compared with ECG of 05-OCT-2024 19:59, No significant change was found Confirmed by DANIELE DOUGLAS ([id number]) on 10/08/2024 9:22:52 AM GEMUSE 10/05/2024 10:2 6 PM EDT 10/08/2024 9:22 AM EDT us [employer] Baez Dennis Polanco DO ECG ORDERABLES Final Res ult Performing Organization Address City/[facility]/ZIP Co de Phone Number GEMUSE * (ABNORMAL) Manual differential (10/05/2024 8:06 PM EDT) [facility] Neutrophils % 64.0 % LAB HEMETOLOGY METHOD 10/05/2024 9:05 PM [facility] Lymphocytes % 25.0 % LAB HEMETOLOGY METHOD 10/05/2024 9:05 PM [facility] Monocytes % 10.0 % LAB HEMETOLOGY METHOD 10/05/2024 9:05 PM [facility] Eosinophils % 0.0 % LAB HEMETOLOGY METHOD 10/05/2024 9:05 PM [facility] Basophils % 0.0 % LAB HEMETOLOGY METHOD 10/05/2024 9:05 PM [facility] Myelocytes % 2.0(H) % LAB HEMETOLOGY METHOD 10/05/2024 9:05 PM [facility] Neutrophils Absolute Manual 9.79(H) 1.50 - 7.00 K/mcL LAB HEMETOLOGY METHOD 10/05/2024 9:05 PM [facility] Lymphocytes Absolute 3.83 1.00 - 5.00 K/mcL LAB HEMETOLOGY METHOD 10/05/2024 9:05 PM [facility] Monocytes Absolute Manual 1.53(H) 0.20 - 1.00 K/mcL LAB HEMETOLOGY METHOD 10/05/2024 9:05 PM [facility] Eosinophils Absolute Manual 0.00 0.00 - 0.50 K/mcL LAB HEMETOLOGY METHOD 10/05/2024 9:05 PM [facility] Basophils Absolute Manual 0.00 0.00 - 0.20 K/mcL LAB HEMETOLOGY METHOD 10/05/2024 9:05 PM [facility] Myelocytes Absolute Manual 0.31(H) 0.00 - 0.00 K/mcL LAB HEMETOLOGY METHOD 10/05/2024 9:05 PM [facility] Rbc Morphology Present( A) Consistent with indices, Normal for LAB HEMETOLOGY METHOD 10/05/2024 9:05 PM EDT [facility] Comment:RBC: Morphology agre es with CBC Platelet Morphology - WAM See Note(A) Normal LAB HEMETOLOGY METHOD 10/05/2024 9:05 PM EDT [facility] Comment:PLT: Normal Polychromasia Present Present( A) (none) LAB HEMETOLOGY METHOD 10/05/2024 9:05 PM EDT [facility] Blood Venous blood specimen / Unknown Venipuncture / Unknown 10/05/2024 8:06 PM EDT 10/05/2024 8:33 PM EDT Sandra Polanco DO LAB BLOOD ORDERABLES [place] Result [facility] [address] [place] [address], * (ABNORMAL) CBC auto differential (10/05/2024 8:06 PM EDT) Only the most recent of2 resultswithin the time period is included. WBC 15.3(H) 4.8 - 10.8 K/mcL LAB HEMETOLOGY METHOD 10/05/2024 9:05 PM [facility] RBC 2.70(L) 3.80 - 4.80 M/mcL LAB HEMETOLOGY METHOD 10/05/2024 9:05 PM EDT [facility] Hemoglobin 8.4(L) 11.5 - 16.0 g/dL LAB HEMETOLOGY METHOD 10/05/2024 9:05 PM [facility] Hematocrit 25.5(L) 35.0 - 47.0 % LAB HEMETOLOGY METHOD 10/05/2024 9:05 PM T [facility] MCV 94.1 79.0 - 98.0 FL LAB HEMETOLOGY METHOD 10/05/2024 9:05 PM EDT [facility] MCH 31.0 27.0 - 32.0 pcg LAB HEMETOLOGY METHOD 10/05/2024 9:05 PM EDT [facility] MCHC 32.9 32.0 - 37.0 g/dL LAB HEMETOLOGY METHOD 10/05/2024 9:05 PM EDT [facility] RDW 12.2 11.0 - 15.0 % LAB HEMETOLOGY METHOD 10/05/2024 9:05 PM EDT [facility] Platelets 611(H) 130 - 400 K/mcL LAB HEMETOLOGY METHOD 10/05/2024 9:05 PM EDT [facility] MPV 8.7 7.0 - 11.0 FL LAB HEMETOLOGY METHOD 10/05/2024 9:05 PM EDT [facility] NRBC 0.0 <1.0 % LAB HEMETOLOGY METHOD 10/05/2024 9:05 PM EDT [facility] NRBC Absolute 0.00 <0.10 K/mcL LAB HEMETOLOGY METHOD 10/05/2024 9:05 PM EDT [facility] Blood Venous blood specimen / Unknown Venipuncture / Unknown 10/05/2024 8:06 PM EDT 10/05/2024 8:33 PM EDT us Sandra Polanco DO LAB BLOOD ORDERABLES [place] Result [facility] [address] [place] [address], * Type and screen (10/05/2024 8:06 PM EDT) ABO Group O 10/05/2024 9:07 PM EDT [facility] Rh Type Positive 10/05/2024 9:07 PM EDT [facility] Antibody Screen Negative 10/05/2024 9:07 PM EDT [facility] Blood Venous blood specimen / Unknown Venipuncture / Unknown 10/05/2024 8:06 PM EDT 10/05/2024 8:29 PM EDT Sandra Polanco LAB BLOOD BANK TEST ORDER JOSEFINA Final Result Performing Organization Address [facility]/ZIP Co de Phone Number [facility] [address] [place] [address], [place] [phone] * Magnesium (10/05/2024 8:06 PM EDT) Magnesium 2.1 1.9 - 2.6 mg/dL LAB CHEMISTRY METHOD 10/05/2024 8:53 PM EDT [facility] Blood Venous blood specimen / Unknown Venipuncture / Unknown 10/05/2024 8:06 PM EDT 10/05/2024 8:29 PM EDT Sandra Polanco LAB BLOOD ORDERABLES [place] Result Performing Organization Address [facility] Co de Phone Number [facility] [address] [place] [address], [place] [phone] * Lipase (10/05/2024 8:06 PM EDT) Lipase 35 13 - 75 unit/L LAB CHEMISTRY METHOD 10/05/2024 8:53 PM EDT [facility] Blood Venous blood specimen / Unknown Venipuncture / Unknown 10/05/2024 8:06 PM EDT 10/05/2024 8:29 PM EDT Sandra Polanco LAB BLOOD ORDERABLES [place] Result Performing Organization Address City/[facility]/ZIP Co de Phone Number [facility] [address] [place] [address], [place] [phone] * (ABNORMAL) Comprehensive metabolic panel (10/05/2024 8:06 PM EDT) Only the most recent of2 resultswithin the time period is included. Sodium 130(L) 133 - 145 mmol/L LAB CHEMISTRY METHOD 10/05/2024 8:53 PM [facility] Potassium 4.8 3.5 - 5.5 mmol/L LAB CHEMISTRY METHOD 10/05/2024 8:53 PM [facility] Chloride 99 96 - 110 mmol/L LAB CHEMISTRY METHOD 10/05/2024 8:53 PM [facility] CO2 24 21 - 32 mmol/L LAB CHEMISTRY METHOD 10/05/2024 8:53 PM [facility] Anion Gap 7 3 - 11 LAB CHEMISTRY METHOD 10/05/2024 8:53 PM [facility] Glucose 119(H) 70 - 100 mg/dL LAB CHEMISTRY METHOD 10/05/2024 8:53 PM [facility] BUN 9 5 - 25 mg/dL LAB CHEMISTRY METHOD 10/05/2024 8:53 PM [facility] Creatinine 0.68 0.50 - 1.10 mg/dL LAB CHEMISTRY METHOD 10/05/2024 8:53 PM [facility] eGFR 101 >=60 mL/min/1. 73m2 LAB CHEMISTRY METHOD 10/05/2024 8:53 PM [facility] Comment:Calculation based on the??Chronic Kidney Disease Epidemiology Collaboration (CKD-EPI) equation refit??without adjustment for race. BUN/Creatinine Ratio 13.2 LAB CHEMISTRY METHOD 10/05/2024 8:53 PM [facility] Calcium 9.0 8.5 - 10.5 mg/dL LAB CHEMISTRY METHOD 10/05/2024 8:53 PM [facility] AST (SGOT) 28 10 - 42 unit/L LAB CHEMISTRY METHOD 10/05/2024 8:53 PM EDT [facility] ALT (SGPT) 35 10 - 60 unit/L LAB CHEMISTRY METHOD 10/05/2024 8:53 PM EDT [facility] Alkaline Phosphatase 121 42 - 121 unit/L LAB CHEMISTRY METHOD 10/05/2024 8:53 PM EDT [facility] Total Protein 6.3 6.0 - 8.0 g/dL LAB CHEMISTRY METHOD 10/05/2024 8:53 PM EDT [facility] Albumin 3.2 3.2 - 5.0 g/dL LAB CHEMISTRY METHOD 10/05/2024 8:53 PM EDT [facility] Total Bilirubin 0.4 0.0 - 1.4 mg/dL LAB CHEMISTRY METHOD 10/05/2024 8:53 PM EDT [facility] Blood Venous blood specimen / Unknown Venipuncture / Unknown 10/05/2024 8:06 PM EDT 10/05/2024 8:29 PM EDT us Sandra Polanco DO LAB BLOOD ORDERABLES [place] l Result [facility] [address] [place] [address], [place] [phone] * (ABNORMAL) RBC morphology review (10/05/2024 11:10 AM EDT) Rbc Morphology See comment( A) Consistent with indices, Normal for [place] LAB HEMETOLOGY METHOD 10/05/2024 2:32 PM EDT [facility] Comment:RBC: Morphology agre es with CBC Platelet Morphology - WAM See Note(A) Normal LAB HEMETOLOGY METHOD 10/05/2024 2:32 PM EDT [facility] Comment:PLT: Large platelets seen Giant platelets seen Blood Venous blood specimen / Unknown Venipuncture / Unknown 10/05/2024 11:10 AM EDT 10/05/2024 11:10 AM EDT Sharon Arce MD LAB BLOOD ORDERABLES Final Resu lt Performing Organization Address City/[facility]/ZIP Co de Phone Number [facility] [address] [place] [address], [place] [phone] * (ABNORMAL) Iron and TIBC (10/05/2024 11:10 AM EDT) Iron 38(L) 40 - 150 mcg/dL LAB CHEMISTRY METHOD 10/05/2024 4:39 PM EDT [facility] TIBC 348 250 - 450 mcg/dL LAB CHEMISTRY METHOD 10/05/2024 4:39 PM EDT [facility] Iron Saturation 11(L) 15 - 50 % LAB CHEMISTRY METHOD 10/05/2024 4:39 PM EDT [facility] Blood Venous blood specimen / Unknown Venipuncture / Unknown 10/05/2024 11:10 AM EDT 10/05/2024 11:10 AM EDT Sharon Arce MD LAB BLOOD ORDERABLES Final Resu lt Performing Organization Address [facility] de Phone Number [facility] [address] [place] [address], [place] [phone] * Hemoglobin A1c (10/05/2024 11:10 AM EDT) Pathologist [facility] Hemoglobin A1C 6.0 <6.5 % LAB CHEMISTRY METHOD 10/05/2024 11:02 PM EDT [facility] Mean Bld Glu Estim. 126 mg/dL LAB CHEMISTRY METHOD 10/05/2024 11:02 PM EDT [facility] Blood Venous blood specimen / Unknown Venipuncture / Unknown 10/05/2024 11:10 AM EDT 10/05/2024 11:10 AM EDT Sharon Arce MD LAB BLOOD ORDERABLES Final Resu lt [facility] [address] [place] [address], [place] [phone] * (ABNORMAL) Ferritin (10/05/2024 11:10 AM EDT) Pathologist [facility] Ferritin 374(H) 8 - 252 ng/mL LAB CHEMISTRY METHOD 10/05/2024 4:39 PM EDT [facility] Blood Venous blood specimen / Unknown Venipuncture / Unknown 10/05/2024 11:10 AM EDT 10/05/2024 11:10 AM EDT Sharon Arce MD LAB BLOOD ORDERABLES Final Resu lt Performing Organization Address City/[facility]/ZIP Co de Phone Number [facility] [address] [place] [address], [place] [phone] * Lipid panel with reflex to direct LDL (06/15/2024 9:28 AM EST) [facility] Cholesterol 128 0 - 200 mg/dL LAB CHEMISTRY METHOD 06/15/2024 1:58 PM [facility] Triglycerides 138 0 - 150 mg/dL LAB CHEMISTRY METHOD 06/15/2024 1:58 PM EST [facility] HDL 48 >=40 mg/dL LAB CHEMISTRY METHOD 06/15/2024 1:58 PM [facility] LDL Calculated 52 0 - 100 mg/dL LAB CHEMISTRY METHOD 06/15/2024 1:58 PM EST [facility] VLDL Cholesterol Cam 27.6 mg/dL LAB CHEMISTRY METHOD 06/15/2024 1:58 PM [facility] Non HDL Chol. (LDL+VLDL) 80 <145 mg/dL LAB CHEMISTRY METHOD 06/15/2024 1:58 PM EST [facility] Chol/HDL Ratio 2.7 0.0 - 4.4 LAB CHEMISTRY METHOD 06/15/2024 1:58 PM EST [facility] Blood Venous blood specimen / Unknown Venipuncture / Unknown 06/15/2024 9:28 AM EST 06/15/2024 9:28 AM EST Radha Mcgregor NP LAB BLOOD ORDERABLES Final Resu lt [facility] ([facility]) [facility] [address] [place] [address], [place] [phone] * Colonoscopy (04/11/2024) Colonoscopy Abstracted, No Interpretation Anatomical Region Laterality Modality Other Historical Provider HEALTH MAINTENANCE Final Result * VESTA SCREENING DIGITAL (11/25/2023 1:13 PM EDT) Anatomical Region Laterality Modality Mammography 11/25/2023 10:4 4 AM EDT Narrative 11/25/2023 1:13 PM EDT [facility] Diagnostic Imaging Department [address] [place] [address] Patient: ??WILFRED GUERRA ?/Age/Sex: 1965 - 57 - F Unit#: ??[id number] ? Location/Status: ??SPDIMAM/REG CLI ? Mnemonic/Ordering Site: ??DIGSC/SPMAM Ordering Physician: ??SHARON ARCE MD [facility] Screening Digital - 11/25/23 - Report Status:Signed EXAM: [facility] Screening Digital EXAM DATE AND TIME: 11/25/2023 11:16 AM HISTORY: ??Screening. COMPARISON: ??10/03/21, 09/21/20, 03/16/19 TECHNIQUE: Bilateral digital breast tomosynthesis was performed in the CC and MLO projections. Computer aided detection with YingYang 3D 3.1 was employed. TISSUE DENSITY: c. [...] Procedure Note Lucia Elias MD - 02/21/2024 [facility] Diagnostic Imaging Department [address] [place] [address] Patient: WILFRED GUERRA D.O.B./Age/Sex: 1965 - 57 - F Unit#: [id number] Location/Status: SPDIMAM/REG CLI Mnemonic/Ordering Site: [facility] Ordering Physician: SHARON ARCE MD [facility] Screening Digital - 11/25/23 - Report Status:Signed EXAM: [facility] Screening Digital EXAM DATE AND TIME: 11/25/2023 11:16 AM HISTORY: Screening. COMPARISON: 10/03/21, 09/21/20, 03/16/19 TECHNIQUE: Bilateral digital breast tomosynthesis was performed in the CCand MLO projections. Computer aided detection with YingYang 3D 3.1was employed. TISSUE DENSITY: c. The [...] Screening (02/02/2018) Hepatitis C Screening abstracted Historical Provider HEALTH MAINTENANCE Final Result * Pap Smear (04/05/2017) Pap smear Abstracted,No Interpretation Historical Provider HEALTH MAINTENANCE Final Result from Last 3 Months or Most Recently Relevant to Health Maintenance Insurance MEDICAID - [place] MEDICARE [employer] MEDICARE Advance Directives Documents on File Type Date Recorded Patient Acid Conditioner Expl anation Health Care Decision (hx) 09/20/2018 [...] Care Decision (hx) 09/20/2018 AD SLAUGHTER DIRECTIVE Care Teams Machine Design Engineer Relationship Specialty Start Date End Date Sharon Arce MD [address] [place] [address] PCP - General Internal Medicine 06/15/24
== END 2024-10-12 13:00 | disposition home or self-care (01) ==
LOC: HO.HOS 12:24
PROVIDERS: Visit Provider Physician Assistant
DX: Z96.642 Presence of left artificial hip joint (principal)
CPT/HCPCS: 99024

== ENCOUNTER → 2024-10-12 12:24 | Outpatient (BNVA) | payer MEDICARE, MEDICAID, SELFPAY | PROVIDERS: Visit Provider Physician Assistant | DX: Z47.1 Aftercare following joint replacement surgery (principal); Z96.642 Presence of left artificial hip joint | CPT/HCPCS: 99212 ==

== ENCOUNTER 2024-11-02 12:02 | Outpatient (AMB) | payer MEDICARE, MEDICAID, SELFPAY ==
[2024-11-02 12:18] VITALS: BMI 28.7
--- NOTE | 2024-11-02 12:18 | MHC.OFFVIS ---
Vital Signs 11/02/24 12:18 Height 5 ft 6 in Weight 178 lb BMI 28.7 Intake Visit Reasons: 6WK PO: L STEVE w/NE 09/26/24 Intake Note: Naomi is a 58 year old female who presents today for a post operative follow up about 6 weeks s/p Left STEVE 09/26/24. States she continues to have daily groin pain, knee and lumbar spine pain. States she is now able to walk up a flight of stairs. Allergies hydrocodone [From Vicodin] Adverse Reaction (Severe, Verified 11/02/24 12:20) Nausea and Vomiting amoxicillin [From Augmentin] Adverse Reaction (Intermediate, Verified 11/02/24 12:20) Diarrhea clavulanic acid [From Augmentin] Adverse Reaction (Intermediate, Verified 11/02/24 12:20) Diarrhea Penicillins Adverse Reaction (Intermediate, Verified 11/02/24 12:20) Diarrhea HPI HPI 6WK PO: L STEVE w/NE 09/26/24: Details: Salvador is doing well. She complains of occasional pain after physical therapy and still states she has a limp while walking. She denies fevers and chills. FOR[facility]LY [facility] Medical History Cervical spinal stenosis PVD (peripheral vascular disease) Family history of anesthesia complication Pre-diabetes GERD (gastroesophageal reflux disease) PAF (paroxysmal atrial fibrillation) NSTEMI (non-ST elevated myocardial infarction) IFG (impaired fasting glucose) NAFLD (nonalcoholic fatty liver disease) Arthritis Back pain Numbness of right hand FOSTER (dyspnea on exertion) Sleep apnea Elevated cholesterol HTN (hypertension) Surgical History History of carpal tunnel release History of endometrial ablation Hx of cardiac catheterization History of total right hip replacement Hx of colonoscopy Social History Household Members: Significant Other Housing: House Are you a primary home health aide caregiver to a significant other at home: No Do you presently have visiting nurse or other home services: No Comment: uses cane or walker at times Patient Tobacco Use Status: Never used Tobacco Tobacco use type: Cigarette Cigarette Packs Per Day: 1 Cigarettes Per Day: 20.0 Years Smoked: 42 e-Cigarette/Vaping Use: Never Used Substance Use Type: Marijuana service: No Current occupational status: unemployed Physical Exam Vital Signs: BMI result Body Mass Index 28.7 Extrem Other: Trendelenburg gait positive on the left with negative Trendelenburg sign. Incision is well healed. No erythema or discharge. She has no groin pain with hip range of motion. Mild pain over the greater trochanter. Results Reviewed Results Reviewed: I personally reviewed relevant radiographs. Left STEVE in expected post operative position with no hardware complications or evidence of loosening Assessment & Plan Assessment & Plan (1) S/P total left hip arthroplasty: Code(s): Z96.642 - Presence of left artificial hip joint Category: Surgical Plan: Status post left hip arthroplasty doing well. Continue physical therapy and gait training. I instructed her on gait mechanics. Follow up see me in 6 weeks. May discontinue ASA. Orders: Orders XR pelvis 1-2V Today M25.559 - Pain in unspecified hip XR hip LT 1V Today M25.552 - Pain in left hip Coding Level of Care Code Global (57455) Diagnoses S/P total left hip arthroplasty Z96.642
== END 2024-11-02 12:49 | disposition home or self-care (01) ==
LOC: HO.HOS 12:03
PROVIDERS: Visit Provider Orthopaedic Surgery
DX: Z96.642 Presence of left artificial hip joint (principal)
CPT/HCPCS: 99024

== ENCOUNTER 2024-11-02 12:02 | Outpatient (REF) | payer MEDICARE, MEDICAID, SELFPAY ==
--- NOTE | ~2024-11-02 | XR_ITS ---
EXAMINATION: XR PELVIS CLINICAL INFORMATION: M25.559 - Pain in unspecified hip COMPARISON: AP pelvis 09/26/2024. TECHNIQUE: AP view of the pelvis. FINDINGS: There are bilateral hip prosthesis with the prosthetic components in satisfactory alignment. There is no periprosthetic fracture. No loosening seen. The soft tissues are normal. XR/XR pelvis 1-2V IMPRESSION: Symmetrical bilateral hip prosthesis in satisfactory alignment. No prosthetic loosening or fracture seen. No change from AP pelvis 09/26/2024. Electronically signed by: Christiano Henderson MD 11/03/2024 07:10 AM EDT
--- NOTE | ~2024-11-02 | XR_ITS ---
EXAMINATION: XR HIP, LEFT CLINICAL INFORMATION: M25.552 - Pain in left hip COMPARISON: None available. TECHNIQUE: Two views of the left hip. FINDINGS: Total left hip prosthesis with prosthetic components in satisfactory alignment. There is no periprosthetic fracture. No loosening seen. The soft tissues are normal. XR/XR hip LT 1V IMPRESSION: Total left hip prosthesis in satisfactory alignment. Electronically signed by: Christiano Henderson MD 11/02/2024 04:33 PM EDT
--- OUTSIDE RECORDS SUMMARY | 2024-11-02 14:24 | XMS_ITS | Clinical Summary ---
Author Organization [facility] Address [address] [place] [address] Care Team Providers Care Supervisor Of Officials Name Role Phone Sharon Arce MD Primary Care Provider [phone] Allergies Active Allergy Reactions Criticality Noted Date Comments Amoxicillin-Pot Clavulanate Diarrhea 05/23/20 24 Penicillins Diarrhea 08/03/2017 Medications nicotine (NICODERM CQ) 21 mg/[address] 1 patch on the skin 1 (one) time each day at the same time. Active dilTIAZem XR (DILACOR XR) 240 mg 24 hr capsule Take 1 capsule (240 mg total) by mouth 1 (one) time each day. Active lisinopriL (PRINIVIL,ZESTRIL) 10 mg tablet Take 1 [...] mouth daily Active multivitamin (MULTIPLE VITAMINS ORAL) Active cholecalciferol (VITAMIN D-3) 25 mcg (1,000 unit) [...] each day. Active aspirin 81 mg EC tabletIndications: Unspecified atrial fibrillation (CMS/HCC V24, CMS/HCC V28) TAKE 1 TABLET BY MOUTH EVERY DAY 90 tablet 06/21/20 24 Active apixaban (ELIQUIS) 5 mg tablet Take 1 tablet (5 mg total) by mouth 2 (two) times a day. 180 tablet 1 06/22/20 24 Active LORazepam (ATIVAN) 0.5 mg tablet Take 1 tablet (0.5 mg total) by mouth 1 (one) time each day if needed for anxiety (for up to 15 days). Max Daily Amount: 0.5 mg 15 tablet 08/03/19 25 Active albuterol HFA (PROAIR HFA ; PROVENTIL HFA ; VENTOLIN HFA) 90 mcg/actuation inhaler INHALE 1 PUFF INTO THE LUNGS EVERY 4 HOURS NEEDED FOR COUGH OR WHEEZING. 18 each 1 09/12/19 25 Active atorvastatin (LIPITOR) 80 mg tablet Take 1 tablet (80 mg total) by mouth 1 (one) time each day. 90 tablet 09/19/19 25 Active oxyCODONE (ROXICODONE) 5 mg immediate release tablet Take 1 tablet (5 mg total) by mouth every 4 (four) hours if needed. Max Daily Amount: 30 mg 10/05/19 25 Active ondansetron ODT (ZOFRAN-ODT) 8 mg disintegrating tablet Dissolve 1 tablet (8 mg total) on top of the tongue every 8 (eight) hours if needed. 09/28/19 25 Active fluticasone propionate (FLONASE) 50 mcg/actuation nasal spray Administer 2 sprays into each nostril 1 (one) time each day. Shake gently. Before first use, prime pump. After use, clean tip and replace cap. 48 g 10/06/19 25 Active ferrous gluconate (FERGON) 324 mg (38 mg iron) tablet Take 1 tablet (324 mg total) by mouth 1 (one) time each day. 30 each 11 10/07/19 25 04/04/2 026 Active celecoxib (CeleBREX) 200 mg capsule Take 1 capsule (200 mg total) by mouth 1 (one) time each day. 09/28/19 25 025 Discontin ued(Drug interacti on) Active Problems Problem Noted Date Diagnosed Date [...] 2022. Obstructive sleep apnea 06/26/2020 Overview (05/23/2024): [facility] Home Sleep Apnea Test: Date [...] apnea test. Study ordered by Dr Hebert. [facility] indicated they will arrange follow-up. Hyperlipidemia, mixed 06/13/2020 Overview (05/21/2024): Last Assessment & Plan: Last lipid panel from February 2023. Total cholesterol 139, HDL 84, LDL 33. Continue high intensity statin therapy. Paroxysmal atrial fibrillation (CMS/HCC V24, CMS /HCC V28) 06/05/2020 Overview (07/19/2024): - Hospitalized at [facility] in late May into early June 2020 where she was diagnosed (about 3 weeks after her [place] diagnosis) -Rate controlled and on Eliquis for [...] lead NSTEMI (non-ST elevated myoc ardial infarction) ([facility] V24, [facility] V28) 05/14/2020 Overview (07/19/2024): - Was hospitalized at [facility] in early May 2020 during which point [...] for new diagnosis of atrial fibrillation at [facility] at which point her amlodipine was [...] pressure once or twice a month at [facility] or [facility]. Resolved Problems Problem Noted Date Diagnosed Date Resolved Date Left ventricular hypertrophy 05/10/2023 07/19/2024 Overview (05/21/2024): Last Assessment & Plan: Have an echocardiogram in 2019 stating that the wall thickness was increased to 15 mm although an echocardiogram 2021 wall thickness appear to be okay. I am going to repeat the echocardiogram to see what her wall thickness is now. Coronary vasospasm (CMS/[facility] V24) 05/14/2020 07/19/2024 Overview (05/21/2024): Last Assessment & Plan: Type II demand [place] with mild luminal irregularities based off cardiac catheterization May 2020. Likely secondary to coronary vasospasm. She is stable without any ischemic symptoms. Continue aspirin, diltiazem, lisinopril, and high intensity statin therapy. She will continue a low-salt diet and daily exercise. Advised she should abstain from cigarette smoking which she is actively working on. Encounters Date Type Department Care Team Description 10/17/2024 Billing Patient Not Present Internal Medicine - [address] [phone] Sharon Arce MD Aftercare following joint replacement surgery, unspecified joint (Primary Dx); Peripheral vascular disease, unspecified ([facility] V24); Paroxysmal atrial fibrillation ([facility] V24, [facility] V28); Prediabetes; Ischemic cardiomyopathy; Spinal stenosis, cervical region; Sleep apnea, unspecified type; History of bilateral hip replacements 10/05/2024 10:18 PM EDT - 10/06/2024 6:53 AM EDT Emergency [facility] Emergency [address] [place] [address] Postoperative hematoma of musculoskeletal structure following musculoskeletal procedure (Primary Dx) Discharge Disposition: Another Health Care Institution Not Defined 10/05/2024 10:30 AM EDT Office Visit Internal Medicine - [address] [phone] Sharon Arce MD Hospital discharge follow-up (Primary Dx); Iron deficiency anemia secondary to inadequate dietary iron intake; Elevated random blood glucose level; History of total left hip replacement 10/05/2024 Telephone Pediatrics - [address] [phone] Sharon Arce MD Faxed Order (Peter VERDE (Certification/POC 09/28/24-11/26/24)) 10/02/2024 Telephone Pediatrics [address] [address] Sharon Arce MD Hospital Follow-up 08/25/2024 Telephone [facility] [address] [facility] [address] [place] [address] Sharon Arce MD Medical Records from Last 3 Months Immunizations Name Administration [...] care for your loved ones. For example, children's court magistrate or elderly care for an older adult? [...] Care Team (Late st Contact Info) Description 12/21/2024 9:45 AM EDT Office Visit Internal Medicine - [facility] [address] [place] [address] Sharon Arce MD [address] [place] [address] 01/16/2025 10:45 AM EDT Ancillary Procedure [facility] - [address] [place] [address] Health Maintenance Due Date Last [...] anemia secondary to inadequate dietary iron intake LIPID PANEL WITH REFLEX TO DIRECT LDL Routine 06/15/2024 9:28 AM EST Hyperlipidemia, unspecified hyperlipidemia type HM COLONOSCOPY Routine 04/11/2024 [facility] SCREENING DIGITAL Routine 11/25/2023 1:13 PM EDT Encounter for screening mammogram for malignant neoplasm of breast HEPATITIS C SCREENING Routine 02/02/2018 HM PAP SMEAR Routine 04/05/2017 from Last 3 [...] of view. Dilated urinary bladder. Atrophied uterus. [id number] colonic fecal burden. The appendix is normal. [...] of view. Dilated urinary bladder. Atrophied uterus. Yetd-fr-[id number] colonic fecal burden. The appendix is normal. [...] LAB HEMETOLOGY METHOD 10/06/2024 1:01 AM EDT [facility] Hematocrit 25.7(L) 35.0 - 47.0 % LAB HEMETOLOGY METHOD 10/06/2024 1:01 AM EDT [facility] Blood Venous blood specimen / Unknown Venipuncture / Unknown 10/06/2024 12:25 AM EDT 10/06/2024 12:56 AM EDT us Lana YANG LAB BLOOD ORDERABLES Final Resul t [facility] [address] [place] [address], * ECG-Annotated (10/06/2024) us Provider Onbase ECG ORDERABLES Final Result * XR Chest 2 Views (10/05/2024 10:58 PM EDT) Anatomical Region Laterality Modality Body Radiographic Shanwa ging 10/06/2024 8:15 AM EDT Impressions 10/06/2024 8:16 AM EDT Normal chest radiographs. -------- FINAL REPORT -------- Dictated By: Orion Hill Dictated Date: 10/06/2024 08:15 ET Assigned Physician: Orion Hill Reviewed and Electronically Signed By: Orion Hill Signed Date: 10/06/2024 08:16 ET Workstation ID: [id number] Transcribed By: Self Edit Transcribed Date: 10/06/2024 [...] Signed Date: 10/06/2024 08:16 ET Workstation ID: [id number] Transcribed By: Self Edit Transcribed Date: 10/06/2024 08:15 ET Sandra Polanco DO IMG XR PROCEDURES Final R esult * Troponin I high sensitivity (10/05/2024 10:36 PM EDT) Only the most recent of2 resultswithin the time period is included. [facility] High Sensitivity Troponin I 4 <=54 ng/L LAB CHEMISTRY METHOD 10/05/2024 11:29 PM EDT [facility] Blood Venous blood specimen / Unknown Venipuncture / Unknown 10/05/2024 10:36 PM EDT 10/05/2024 10:58 PM EDT Narrative [facility] - 10/05/2024 11:29 PM EDT High levels of biotin in samples may falsely decrease hsTroponin values. ??Use caution when interpreting hsTroponin results in patients taking biotin who exhibit renal impairment (eGFR <60) or in patients taking more than 20 mg/day of biotin. Alexandre Nestor Polanco LAB BLOOD ORDERABLES [place] Result Performing Organization Address City/[facility]/ZIP Co de Phone Number [facility] [address] [place] [address], [place] [phone] * B-type natriuretic peptide (10/05/2024 10:36 PM EDT) [facility] BNP 18 <=100 pcg/mL LAB CHEMISTRY METHOD 10/05/2024 11:36 PM EDT [facility] Blood Venous blood specimen / Unknown Venipuncture / Unknown 10/05/2024 10:36 PM EDT 10/05/2024 10:58 PM EDT [facility] Nestor Polanco LAB BLOOD ORDERABLES [place] Result [facility] [address] [place] [address], [place] [phone] * ECG 12 lead (10/05/2024 10:26 PM EDT) Only the most recent of2 resultswithin the time period is included. Ventricular Rate ECG 79 BPM GEMUSE Atrial Rate 79 BPM GEMUSE P-R Interval 160 ms GEMUSE QRS Duration 70 ms GEMUSE Q-T Interval 370 ms GEMUSE QTc 424 ms GEMUSE P Wave [place] 63 degrees GEMUSE R [place] 19 degrees GEMUSE T [place] 48 degrees GEMUSE ECG Interpretation Normal sinus rhythm Normal ECG When compared with ECG of 05-OCT-2024 19:59, No significant change was found Confirmed by DANIELE DOUGLAS ([id number]) on 10/08/2024 9:22:52 AM GEMUSE 10/05/2024 10:2 6 PM EDT 10/08/2024 9:22 AM EDT us Sandra Polanco DO ECG ORDERABLES Final Res ult GEMUSE * (ABNORMAL) Manual differential (10/05/2024 8:06 PM EDT) Pathologist [facility] Neutrophils % 64.0 % LAB HEMETOLOGY METHOD 10/05/2024 9:05 PM EDT [facility] Lymphocytes % 25.0 % LAB HEMETOLOGY METHOD 10/05/2024 9:05 PM EDT [facility] Monocytes % 10.0 % LAB HEMETOLOGY METHOD 10/05/2024 9:05 PM EDT [facility] Eosinophils % 0.0 % LAB HEMETOLOGY METHOD 10/05/2024 9:05 PM EDT [facility] Basophils % 0.0 % LAB HEMETOLOGY METHOD 10/05/2024 9:05 PM EDT [facility] Myelocytes % 2.0(H) % LAB HEMETOLOGY METHOD 10/05/2024 9:05 PM EDT [facility] Neutrophils Absolute Manual 9.79(H) 1.50 - 7.00 K/mcL LAB HEMETOLOGY METHOD 10/05/2024 9:05 PM EDT [facility] Lymphocytes Absolute 3.83 1.00 - 5.00 K/mcL LAB HEMETOLOGY METHOD 10/05/2024 9:05 PM EDT [facility] Monocytes Absolute Manual 1.53(H) 0.20 - 1.00 K/[facility] LAB HEMETOLOGY METHOD 10/05/2024 9:05 PM EDT [facility] Eosinophils Absolute Manual 0.00 0.00 - 0.50 K/[facility] LAB HEMETOLOGY METHOD 10/05/2024 9:05 PM EDT [facility] Basophils Absolute Manual 0.00 0.00 - 0.20 K/[facility] LAB HEMETOLOGY METHOD 10/05/2024 9:05 PM EDT [facility] Myelocytes Absolute Manual 0.31(H) 0.00 - 0.00 K/[facility] LAB HEMETOLOGY METHOD 10/05/2024 9:05 PM EDT [facility] Rbc Morphology Present( A) Consistent with indices, Normal for [employer] LAB HEMETOLOGY METHOD 10/05/2024 9:05 PM EDT [facility] Comment:RBC: Morphology agre es with CBC Platelet Morphology - WAM See Note(A) Normal LAB HEMETOLOGY METHOD 10/05/2024 9:05 PM EDT [facility] Comment:PLT: Normal Polychromasia Present Present( A) (none) LAB HEMETOLOGY METHOD 10/05/2024 9:05 PM EDT [facility] Blood Venous blood specimen / Unknown Venipuncture / Unknown 10/05/2024 8:06 PM EDT 10/05/2024 8:33 PM EDT us Sandra Polanco DO LAB BLOOD ORDERABLES [place] Result [facility] [address] [place] [address], [place] [phone] * (ABNORMAL) CBC auto differential (10/05/2024 8:06 PM EDT) Only the most recent of2 resultswithin the time period is included. [facility] Signature WBC 15.3(H) 4.8 - 10.8 K/mcL LAB HEMETOLOGY METHOD 10/05/2024 9:05 PM [facility] RBC 2.70(L) 3.80 - 4.80 M/mcL LAB HEMETOLOGY METHOD 10/05/2024 9:05 PM [facility] Hemoglobin 8.4(L) 11.5 - 16.0 g/dL LAB HEMETOLOGY METHOD 10/05/2024 9:05 PM [facility] Hematocrit 25.5(L) 35.0 - 47.0 % LAB HEMETOLOGY METHOD 10/05/2024 9:05 PM [facility] MCV 94.1 79.0 - 98.0 FL LAB HEMETOLOGY METHOD 10/05/2024 9:05 PM [facility] MCH 31.0 27.0 - 32.0 pcg LAB HEMETOLOGY METHOD 10/05/2024 9:05 PM [facility] MCHC 32.9 32.0 - 37.0 g/dL LAB HEMETOLOGY METHOD 10/05/2024 9:05 PM [facility] RDW 12.2 11.0 - 15.0 % LAB HEMETOLOGY METHOD 10/05/2024 9:05 PM [facility] Platelets 611(H) 130 - 400 K/mcL LAB HEMETOLOGY METHOD 10/05/2024 9:05 PM [facility] MPV 8.7 7.0 - 11.0 FL LAB HEMETOLOGY METHOD 10/05/2024 9:05 PM [facility] NRBC 0.0 <1.0 % LAB HEMETOLOGY METHOD 10/05/2024 9:05 PM EDT [facility] NRBC Absolute 0.00 <0.10 K/mcL LAB HEMETOLOGY METHOD 10/05/2024 9:05 PM EDT [facility] Blood Venous blood specimen / Unknown Venipuncture / Unknown 10/05/2024 8:06 PM EDT 10/05/2024 8:33 PM EDT Sandra Nestor Dennis Polanco DO LAB BLOOD ORDERABLES [place] Result [facility] [address] [place] [address], [place] [phone] * Type and screen (10/05/2024 8:06 PM EDT) ABO Group O 10/05/2024 9:07 PM EDT [facility] Rh Type Positive 10/05/2024 9:07 PM EDT [facility] Antibody Screen Negative 10/05/2024 9:07 PM EDT [facility] Blood Venous blood specimen / Unknown Venipuncture / Unknown 10/05/2024 8:06 PM EDT 10/05/2024 8:29 PM EDT Sandra Polanco DO LAB BLOOD BANK TEST ORDER JOSEFINA Final Result [facility] [address] [place] [address], [place] [phone] * Magnesium (10/05/2024 8:06 PM EDT) Magnesium 2.1 1.9 - 2.6 mg/dL LAB CHEMISTRY METHOD 10/05/2024 8:53 PM EDT [facility] Blood Venous blood specimen / Unknown Venipuncture / Unknown 10/05/2024 8:06 PM EDT 10/05/2024 8:29 PM EDT Sandra Polanco LAB BLOOD ORDERABLES [place] Result [facility] [address] [place] [address], [place] [phone] * Lipase (10/05/2024 8:06 PM EDT) Pathologist [facility] Lipase 35 13 - 75 unit/L LAB CHEMISTRY METHOD 10/05/2024 8:53 PM EDT [facility] Blood Venous blood specimen / Unknown Venipuncture / Unknown 10/05/2024 8:06 PM EDT 10/05/2024 8:29 PM EDT Sandra Polanco LAB BLOOD ORDERABLES [place] Result Performing Organization Address City/[facility]/ZIP Co de Phone Number [facility] [address] [place] [address], [place] [phone] * (ABNORMAL) Comprehensive metabolic panel (10/05/2024 8:06 PM EDT) Only the most recent of2 resultswithin the time period is included. Sodium 130(L) 133 - 145 mmol/L LAB CHEMISTRY METHOD 10/05/2024 8:53 PM EDT [facility] Potassium 4.8 3.5 - 5.5 mmol/L LAB CHEMISTRY METHOD 10/05/2024 8:53 PM EDT [facility] Chloride 99 96 - 110 mmol/L LAB CHEMISTRY METHOD 10/05/2024 8:53 PM EDT [facility] CO2 24 21 - 32 mmol/L LAB CHEMISTRY METHOD 10/05/2024 8:53 PM EDT [facility] Anion Gap 7 3 - 11 LAB CHEMISTRY METHOD 10/05/2024 8:53 PM [facility] Glucose 119(H) 70 - 100 mg/dL LAB CHEMISTRY METHOD 10/05/2024 8:53 PM [facility] BUN 9 5 - 25 mg/dL LAB CHEMISTRY METHOD 10/05/2024 8:53 PM [facility] Creatinine 0.68 0.50 - 1.10 mg/dL LAB CHEMISTRY METHOD 10/05/2024 8:53 PM [facility] eGFR 101 >=60 mL/min/1. 73m2 LAB CHEMISTRY METHOD 10/05/2024 8:53 PM [facility] Comment:Calculation based on the??Chronic Kidney Disease Epidemiology Collaboration (CKD-EPI) equation refit??without adjustment for race. BUN/Creatinine Ratio 13.2 LAB CHEMISTRY METHOD 10/05/2024 8:53 PM [facility] Calcium 9.0 8.5 - 10.5 mg/dL LAB CHEMISTRY METHOD 10/05/2024 8:53 PM [facility] AST (SGOT) 28 10 - 42 unit/L LAB CHEMISTRY METHOD 10/05/2024 8:53 PM [facility] ALT (SGPT) 35 10 - 60 unit/L LAB CHEMISTRY METHOD 10/05/2024 8:53 PM [facility] Alkaline Phosphatase 121 42 - 121 unit/L LAB CHEMISTRY METHOD 10/05/2024 8:53 PM [facility] Total Protein 6.3 6.0 - 8.0 g/dL LAB CHEMISTRY METHOD 10/05/2024 8:53 PM [facility] Albumin 3.2 3.2 - 5.0 g/dL LAB CHEMISTRY METHOD 10/05/2024 8:53 PM [facility] Total Bilirubin 0.4 0.0 - 1.4 mg/dL LAB CHEMISTRY METHOD 10/05/2024 8:53 PM [facility] Blood Venous blood specimen / Unknown Venipuncture / Unknown 10/05/2024 8:06 PM EDT 10/05/2024 8:29 PM EDT us Alexandresalvador Nestor Dennis Collin DO LAB BLOOD ORDERABLES [place] l Result Performing Organization Address [facility] Co de Phone Number [facility] [address] [place] [address], [place] [phone] * (ABNORMAL) RBC morphology review (10/05/2024 11:10 AM EDT) Rbc Morphology See comment( A) Consistent with indices, Normal for [place] LAB HEMETOLOGY METHOD 10/05/2024 2:32 PM EDT [facility] Comment:RBC: Morphology agre es with CBC Platelet Morphology - WAM See Note(A) Normal LAB HEMETOLOGY METHOD 10/05/2024 2:32 PM EDT [facility] Comment:PLT: Large platelets seen Giant platelets seen Blood Venous blood specimen / Unknown Venipuncture / Unknown 10/05/2024 11:10 AM EDT 10/05/2024 11:10 AM EDT Sharon Arce MD LAB BLOOD ORDERABLES Final Resu lt Performing Organization Address [facility] de Phone Number [facility] [address] [place] [address], [place] [phone] * (ABNORMAL) Iron and TIBC (10/05/2024 11:10 AM EDT) Iron 38(L) 40 - 150 mcg/dL LAB CHEMISTRY METHOD 10/05/2024 4:39 PM EDT [facility] TIBC 348 250 - 450 mcg/dL LAB CHEMISTRY METHOD 10/05/2024 4:39 PM EDT [facility] Iron Saturation 11(L) 15 - 50 % LAB CHEMISTRY METHOD 10/05/2024 4:39 PM EDT [facility] Blood Venous blood specimen / Unknown Venipuncture / Unknown 10/05/2024 11:10 AM EDT 10/05/2024 11:10 AM EDT Sharon Arce MD LAB BLOOD ORDERABLES Final Resu lt Performing Organization Address [facility] Co de Phone Number [facility] [address] [place] [address], [place] [phone] * Hemoglobin A1c (10/05/2024 11:10 AM EDT) Hemoglobin A1C 6.0 <6.5 % LAB CHEMISTRY METHOD 10/05/2024 11:02 PM EDT [facility] Mean Bld Glu Estim. 126 mg/dL LAB CHEMISTRY METHOD 10/05/2024 11:02 PM EDT [facility] Blood Venous blood specimen / Unknown Venipuncture / Unknown 10/05/2024 11:10 AM EDT 10/05/2024 11:10 AM EDT us Sharon Arce MD LAB BLOOD ORDERABLES Final Resu lt Performing Organization Address [facility] de Phone Number [facility] [address] [place] [address], * (ABNORMAL) Ferritin (10/05/2024 11:10 AM EDT) Ferritin 374(H) 8 - 252 ng/mL LAB CHEMISTRY METHOD 10/05/2024 4:39 PM EDT [facility] Blood Venous blood specimen / Unknown Venipuncture / Unknown 10/05/2024 11:10 AM EDT 10/05/2024 11:10 AM EDT us Sharon Arce MD LAB BLOOD ORDERABLES Final Resu lt Performing Organization Address City/[facility]/ZIP Co de Phone Number [facility] [address] [place] [address], [place] [phone] * Lipid panel with reflex to direct LDL (06/15/2024 9:28 AM EST) Cholesterol 128 0 - 200 mg/dL LAB CHEMISTRY METHOD 06/15/2024 1:58 PM EST [facility] Triglycerides 138 0 - 150 mg/dL LAB CHEMISTRY METHOD 06/15/2024 1:58 PM EST [facility] HDL 48 >=40 mg/dL LAB CHEMISTRY METHOD 06/15/2024 1:58 PM EST [facility] LDL Calculated 52 0 - 100 mg/dL LAB CHEMISTRY METHOD 06/15/2024 1:58 PM EST [facility] VLDL Cholesterol Cam 27.6 mg/dL LAB CHEMISTRY METHOD 06/15/2024 1:58 PM EST [facility] Non HDL Chol. (LDL+VLDL) 80 <145 mg/dL LAB CHEMISTRY METHOD 06/15/2024 1:58 PM EST [facility] Chol/HDL Ratio 2.7 0.0 - 4.4 LAB CHEMISTRY METHOD 06/15/2024 1:58 PM EST [facility] Blood Venous blood specimen / Unknown Venipuncture / Unknown 06/15/2024 9:28 AM EST 06/15/2024 9:28 AM EST Radha Mcgregor NP LAB BLOOD ORDERABLES Final Resu lt [facility] [address] [place] [address], [place] [phone] * Colonoscopy (04/11/2024) Colonoscopy Abstracted, No Interpretation Anatomical Region Laterality Modality Other Historical Provider HEALTH MAINTENANCE Final Result * [facility] SCREENING DIGITAL (11/25/2023 1:13 PM EDT) Anatomical Region Laterality Modality Mammography 11/25/2023 10:4 4 AM EDT Narrative 11/25/2023 1:13 PM EDT [facility] Diagnostic Imaging Department [address] [place] [address] [id number] Patient: ??WILFRED GUERRA ?/Age/Sex: 1965 - 57 - F Unit#: ??[id number] ? Location/Status: ??SPDIMAM/REG CLI ? Mnemonic/Ordering Site: ??DIGSC/SPMAM Ordering Physician: ??SHARON ARCE MD [facility] Screening Digital - 11/25/23 - Report Status:Signed EXAM: [facility] Screening Digital EXAM DATE AND TIME: 11/25/2023 11:16 AM HISTORY: ??Screening. COMPARISON: ??10/03/21, 09/21/20, 03/16/19 TECHNIQUE: Bilateral digital breast tomosynthesis was performed in the CC and MLO projections. Computer aided detection with [employer] 3D 3.1 was employed. TISSUE DENSITY: c. [...] Procedure Note Lucia Elias MD - 02/21/2024 [facility] Diagnostic Imaging Department [address] [place] [address] Patient: WILFRED GUERRA Yara /Age/Sex: 1965 - 57 - F Unit#: [id number] Location/Status: [facility]em[facility] Ordering Physician: SHARON ARCE MD [facility] Screening Digital - 11/25/23 - Report Status:Signed EXAM: [facility] Screening Digital EXAM DATE AND TIME: 11/25/2023 11:16 AM HISTORY: Screening. COMPARISON: 10/03/21, 09/21/20, 03/16/19 TECHNIQUE: Bilateral digital breast tomosynthesis was performed in the CCand MLO projections. Computer aided detection with [employer] 3D 3.1was employed. TISSUE DENSITY: c. 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 Health Care Decision (hx) 09/20/2018 [...] DIRECTIVE Health Care Decision (hx) 09/20/2018 AD SLAUGHETR DIRECTIVE Health Care Decision (hx) 09/20/2018 AD SLAUGHTER DIRECTIVE Health Care Decision (hx) 09/20/2018 AD SLAUGHTER DIRECTIVE Health Care Decision (hx) 09/20/2018 AD SLAUGHTER DIRECTIVE Health Care Decision (hx) 09/20/2018 AD SLAUGHTER DIRECTIVE Health Care Decision (hx) 09/20/2018 AD SLAUGHTER DIRECTIVE Health Care Decision (hx) 09/20/2018 AD SLAUGHTER DIRECTIVE Care Teams Supervisor Of Officials Relationship Specialty Start Date End Date Sharon Arce MD [address] [place] [id number] PCP - General Internal Medicine 06/15/24
== END 2024-11-02 12:03 | disposition home or self-care (01) ==
LOC: HO.HOSX 12:02
PROVIDERS: Visit Provider Orthopaedic Surgery
DX: M25.552 Pain in left hip (principal); Z96.642 Presence of left artificial hip joint
CPT/HCPCS: 72170; 73501; 99212

== ENCOUNTER → 2024-11-02 12:26 | Outpatient (BNV) | payer MEDICARE, MEDICAID, SELFPAY | PROVIDERS: Visit Provider Radiology Diagnostic Radiology | DX: Z96.642 Presence of left artificial hip joint (principal) | CPT/HCPCS: 72170; 73501 ==

== ENCOUNTER 2024-12-14 10:41 | Outpatient (AMB) | payer MEDICARE, MEDICAID, SELFPAY ==
--- NOTE | 2024-12-14 10:59 | A.OFFVIS_ITS ---
Intake Visit Reasons: PO: L STEVE w/NE 09/26/24 Intake Note: Naomi is a 58 year old female who presents today for a post operative appointment about 3 months s/p Left STEVE 09/26/24. Patient reports that she is doing well, she is asking about upcoming dental appointments as she has a cavity that needs to be filled and a root plaining - she would like to know when this can be done Allergies hydrocodone [From Vicodin] Adverse Reaction (Severe, Verified 11/02/24 12:20) Nausea and Vomiting amoxicillin [From Augmentin] Adverse Reaction (Intermediate, Verified 11/02/24 12:20) Diarrhea clavulanic acid [From Augmentin] Adverse Reaction (Intermediate, Verified 11/02/24 12:20) Diarrhea Penicillins Adverse Reaction (Intermediate, Verified 11/02/24 12:20) Diarrhea HPI HPI PO: L STEVE w/NE 09/26/24: Details: Naomi is a 58 year old female who presents today for a post operative appointment about 3 months s/p Left STEVE 09/26/24. Patient reports that she is doing well, she is asking about upcoming dental appointments as she has a cavity that needs to be filled and a root plaining - she would like to know when this can be done. [facility] Medical History Cervical spinal stenosis PVD (peripheral vascular disease) Family history of anesthesia complication Pre-diabetes GERD (gastroesophageal reflux disease) PAF (paroxysmal atrial fibrillation) NSTEMI (non-ST elevated myocardial infarction) IFG (impaired fasting glucose) NAFLD (nonalcoholic fatty liver disease) Arthritis Back pain Numbness of right hand FOSTER (dyspnea on exertion) Sleep apnea Elevated cholesterol HTN (hypertension) Surgical History History of carpal tunnel release History of endometrial ablation Hx of cardiac catheterization History of total right hip replacement Hx of colonoscopy Social History Household Members: Significant Other Housing: House Are you a primary acute care nurse practitioner to a significant other at home: No Do you presently have visiting nurse or other home services: No Comment: uses cane or walker at times Patient Tobacco Use Status: Never used Tobacco Tobacco use type: Cigarette Cigarette Packs Per Day: 1 Cigarettes Per Day: 20.0 Years Smoked: 42 e-Cigarette/Vaping Use: Never Used Substance Use Type: Marijuana service: No Current occupational status: unemployed Physical Exam Extrem Other: Don is walking well with no gait antalgia negative Trendelenburg gait. No pain with hip range of motion. Assessment & Plan Assessment & Plan (1) S/P total left hip arthroplasty: Code(s): Z96.642 - Presence of left artificial hip joint Category: Medical Plan: Status post left hip arthroplasty. She is doing very well. Continue weight- bearing and activity as tolerated. Discussed dental prophylaxis. She can call and we will send antibiotics her pharmacy if she has dental work. May follow up as needed. Coding Level of Care Code Global (22468) Diagnoses S/P total left hip arthroplasty Z96.642
--- OUTSIDE RECORDS SUMMARY | 2024-12-14 12:32 | XMS_ITS | Clinical Summary ---
Author Organization [employer] Address [address] [place] [address] Care Team Providers Care Materials Associate Name Role Phone Sharon Arce MD Primary Care Provider [phone] Allergies Active Allergy Reactions Criticality Noted Date [...] each day. Active aspirin 81 mg EC tabletIndications:U nspecified atrial fibrillation (CMS/HCC V24, CMS/HCC V28) TAKE 1 TABLET BY MOUTH EVERY DAY 90 tablet 4 Active LORazepam (ATIVAN) 0.5 mg tablet Take 1 tablet (0.5 mg total) by mouth 1 (one) time each day if needed for anxiety (for up to 15 days). Max Daily Amount: 0.5 mg 15 tablet 5 Active oxyCODONE (ROXICODONE) 5 mg immediate release tablet Take 1 tablet (5 mg total) by mouth every 4 (four) hours if needed. Max Daily Amount: 30 mg 5 Active ondansetron ODT (ZOFRAN-ODT) 8 mg disintegrating tablet Dissolve 1 tablet (8 mg total) on top of the tongue every 8 (eight) hours if needed. 5 Active ferrous gluconate (FERGON) 324 mg (38 mg iron) tablet Take 1 tablet (324 mg total) by mouth 1 (one) time each day. 30 each 5 10/07/19 26 Active dilTIAZem CD (CARDIZEM CD) 240 mg 24 hr capsule TAKE 1 CAPSULE BY MOUTH EVERY DAY 90 capsule 1 5 Active albuterol HFA (PROAIR HFA ; PROVENTIL HFA ; VENTOLIN HFA) 90 mcg/actuation inhaler INHALE 1 PUFF INTO THE LUNGS EVERY 4 HOURS NEEDED FOR COUGH OR WHEEZING. 18 each 5 Active atorvastatin (LIPITOR) 80 mg tablet TAKE 1 TABLET BY MOUTH 1 TIME EACH DAY. 90 tablet 1 5 Active lisinopriL (PRINIVIL,ZESTRIL) 10 mg tablet TAKE 1 TABLET BY MOUTH EVERY DAY 90 tablet 5 Active Eliquis 5 mg tablet TAKE 1 TABLET BY MOUTH TWICE A DAY 180 tablet 5 Active fluticasone propionate (FLONASE) 50 mcg/actuation nasal spray SPRAY 2 SPRAYS INTO EACH NOSTRIL EVERY DAY SHAKE GENTLY. CLEAN TIP AND REPLACE CAP AFTER USE. 48 mL 1 5 Active Active Problems Problem Noted Date Diagnosed Date [...] 2022. Obstructive sleep apnea 06/26/2020 Overview (05/23/2024): [facility] Home Sleep Apnea Test: Date 06/14/2020; Wt [...] apnea test. Study ordered by Dr Hebert. [facility] indicated they will arrange follow-up. Hyperlipidemia, mixed 06/13/2020 Overview (05/21/2024): Last Assessment & Plan: Last lipid panel from February 2023. Total cholesterol 139, HDL 84, LDL 33. Continue high intensity statin therapy. Paroxysmal atrial fibrillation ([facility] V24, CMS /[facility] V28) 06/05/2020 Overview (07/19/2024): - Hospitalized at [facility] in late May into early June 2020 where she was diagnosed (about 3 weeks after her NM diagnosis) -Rate controlled and on Eliquis for [...] lead NSTEMI (non-ST elevated myoc ardial infarction) ([facility] V24, CMS/[facility] V28) 05/14/2020 Overview (07/19/2024): - Was hospitalized at [facility] in early May 2020 during which point [...] for new diagnosis of atrial fibrillation at [facility] at which point her amlodipine was [...] pressure once or twice a month at [facility] or [facility]. Resolved Problems Problem Noted Date Diagnosed Date Resolved Date Left ventricular hypertrophy 05/10/2023 07/19/2024 Overview (05/21/2024): Last Assessment & Plan: Have an echocardiogram in 2019 stating that the wall thickness was increased to 15 mm although an echocardiogram 2021 wall thickness appear to be okay. I am going to repeat the echocardiogram to see what her wall thickness is now. Coronary vasospasm (CMS/HCC V24) 05/14/2020 07/19/2024 Overview (05/21/2024): Last Assessment & Plan: Type II demand NM with mild luminal irregularities based off cardiac [...] Billing Patient Not Present Internal Medicine - [facility] [address] [place] [address] Sharon Arce MD Aftercare following joint replacement surgery, unspecified joint (Primary Dx); Peripheral vascular disease, unspecified ([facility] V24); Paroxysmal atrial fibrillation ([facility] V24, [facility] V28); Prediabetes; Ischemic cardiomyopathy; Spinal stenosis, cervical region; Sleep apnea, unspecified type; History of bilateral hip replacements 10/05/2024 10:18 PM EDT - 10/06/2024 6:53 AM EDT Emergency [facility] Emergency [address] [place] [address] Postoperative hematoma of musculoskeletal structure following musculoskeletal procedure (Primary Dx) Discharge Disposition: Another Health Care Institution Not Defined 10/05/2024 10:30 AM EDT Office Visit Internal Medicine - [address] [address] Sharon Arce MD Hospital discharge follow-up (Primary Dx); Iron deficiency anemia secondary to inadequate dietary iron intake; Elevated random blood glucose level; History of total left hip replacement 10/05/2024 Telephone Pediatrics - [address] [address] Sharon Arce MD Faxed Order (Peter GUYA (Certification/POC 09/28/24-11/26/24)) 10/02/2024 Telephone Pediatrics - [address] [address] Sharon Arce MD Hospital Follow-up from Last 3 Months Immunizations Name Administration [...] Date Smoking Tobacco: Every Day Cigarettes 0.5 21.4 Started: 07/05/2003 Smokeless Tobacco: Never Tobacco Cessation:Ready [...] your loved ones. For example, child and family services specialist or elderly care for an older adult? [...] Office Visit Internal Medicine - [facility] [address] [place], [place] [phone] Sharon Arce MD [address] [place] [address] 01/16/2025 10:45 AM EDT Ancillary Procedure [facility] - [address] [place] [address] Health Maintenance Due Date Last Done [...] Procedure Name Priority Date/Time Associated Diagnosis Comments CBC WITH AUTO DIFFERENTIAL Routine 12/13/2024 11:19 AM EDT Low hemoglobin CBC AND DIFFERENTIAL Routine 12/13/2024 11:19 AM EDT Low hemoglobin CT PELVIS W CONTRAST STAT 10/06/2024 1:40 [...] Recently Relevant to Health Maintenance Results * (ABNORMAL) CBC auto differential (12/13/2024 11:19 AM EDT) Only the most recent of3 resultswithin the time period is included. WBC 12.6(H) 4.8 - 10.8 K/mcL LAB HEMETOLOGY METHOD 12/13/2024 2:38 PM EDT [facility] RBC 4.40 3.80 - 4.80 M/mcL LAB HEMETOLOGY METHOD 12/13/2024 2:38 PM EDT [facility] Hemoglobin 13.2 11.5 - 16.0 g/dL LAB [facility]ETOLOGY [facility] Hematocrit 39.9 35.0 - 47.0 % LAB HEMETOLOGY METHOD 12/13[facility]2024 [facility] MCV 90.1 79.0 - 98.0 FL LAB HEMETOLOGY METHOD 12/13/2024 2:38 PM EDT [facility] MCH 29.8 27.0 - 32.0 pcg LAB HEMETOLOGY METHOD [facility]/13[facility]24 [facility] MCHC 33.1 32.0 - 37.0 g/dL LAB HEMETOLOGY METHOD 12/13[facility]2024 [facility] RDW 12.2 11.0 - 15.0 % LAB HEMETOLOGY METHOD 12/13/2024 2:38 PM EDT [facility] Platelets 374 130 - 400 K/mcL LAB HEMETOLOGY METHOD 12/13[facility]2024 [facility] MPV 9.6 7.0 - 11.0 FL LAB HEMETOLOGY METHOD 12/13[facility]2024 [facility] NRBC 0.0 <1.0 % LAB HEMETOLOGY METHOD 12/13[facility]2024 2[facility] NRBC Absolute 0.00 <0.10 K/mcL LAB HEMETOLOGY METHOD 12/13/2024 2:[address] [facility] Neutrophils Relative 58.6 % LAB HEMETOLOGY METHOD 12/13/2024 2:[address] [facility] Lymphocytes Relative 30.0 % LAB HEMETOLOGY METHOD 12/13/2024 2:[address] [facility] Monocytes Relative 7.8 % LAB HEMETOLOGY METHOD 12/13/2024 2:[address] [facility] Eosinophils Relative 2.6 % LAB HEMETOLOGY METHOD 12/13/2024 2:[address] [facility] Basophils Relative 0.5 % LAB HEMETOLOGY METHOD 12/13/2024 2:[address] [facility] Immature Granulocytes Relative 0.5 % LAB HEMETOLOGY METHOD 12/13/2024 2:[address] [facility] Neutrophils Absolute 7.37(H) 1.50 - 7.00 K/mcL LAB HEMETOLOGY METHOD 12/13/2024 2:[address] [facility] Lymphocytes Absolute 3.77 1.00 - 5.00 K/mcL LAB HEMETOLOGY METHOD 12/13/2024 2:[address] [facility] Monocytes Absolute 0.98 0.20 - 1.00 K/mcL LAB HEMETOLOGY METHOD 12/13/2024 2:[address] [facility] Eosinophils Absolute 0.33 0.00 - 0.50 K/mcL LAB HEMETOLOGY METHOD 12/13/2024 2:[address] [facility] Basophils Absolute 0.06 0.00 - 0.20 K/mcL LAB HEMETOLOGY METHOD 12/13/2024 2:[address] [facility] Immature Granulocytes Absolute 0.06(H) 0.00 - 0.03 K/mcL LAB HEMETOLOGY METHOD 12/13/2024 2:38 PM EDT [facility] Blood Venous blood specimen / Unknown Venipuncture / Unknown 12/13/2024 11:19 AM EDT 12/13/2024 11:19 AM EDT Sharon Arce MD LAB BLOOD ORDERABLES Final Resu lt [facility] ([facility]) [facility] [address] [place] [address], [place] [phone] * CT Pelvis w Contrast (10/06/2024 1:40 [...] of view. Dilated urinary bladder. Atrophied uterus. Mhby-ls-epfoiolz colonic fecal burden. The appendix is normal. [...] of view. Dilated urinary bladder. Atrophied uterus. Eylr-rt-iidorlbw colonic fecal burden. The appendix is normal. [...] Ceballos DO on 10/06/2024 02:17:41 Lana YANG [facility] CT PROCEDURES Final Result * (ABNORMAL) Hemoglobin and hematocrit, blood (10/06/2024 12:25 AM EDT) Hemoglobin 9.0(L) 11.5 - 16.0 g/dL LAB HEMETOLOGY METHOD 10/06/2024 1:01 AM EDT [facility] Hematocrit 25.7(L) 35.0 - 47.0 % LAB HEMETOLOGY METHOD 10/06/2024 1:01 AM EDT [facility] Blood Venous blood specimen / Unknown Venipuncture / Unknown 10/06/2024 12:25 AM EDT 10/06/2024 12:56 AM EDT Lana YANG LAB BLOOD ORDERABLES Final Resul t [facility] [address] [place] [address], * ECG-Annotated (10/06/2024) Provider Onbase ECG ORDERABLES Final Result * [...] Signed Date: 10/06/2024 08:16 ET Workstation ID: [id number] Transcribed By: Self Edit Transcribed Date: 10/06/2024 [...] Signed Date: 10/06/2024 08:16 ET Workstation ID: [id number] Transcribed By: Self Edit Transcribed Date: 10/06/2024 08:15 ET Sandra Nestor Dennis Polanco DO IMG XR PROCEDURES Final R esult * Troponin I high sensitivity (10/05/2024 10:36 PM EDT) Only the most recent of2 resultswithin the time period is included. [facility] High Sensitivity Troponin I 4 <=54 ng/L LAB CHEMISTRY METHOD 10/05/2024 11:29 PM EDT [facility] Blood Venous blood specimen / Unknown Venipuncture / Unknown 10/05/2024 10:36 PM EDT 10/05/2024 10:58 PM EDT Narrative [facility] - 10/05/2024 11:29 PM EDT High levels of biotin in samples may falsely decrease hsTroponin values. ??Use caution when interpreting hsTroponin results in patients taking biotin who exhibit renal impairment (eGFR <60) or in patients taking more than 20 mg/day of biotin. Sandra Polanco DO LAB BLOOD ORDERABLES [place] Result [facility] [address] [place] [address], [place] [phone] * B-type natriuretic peptide (10/05/2024 10:36 PM EDT) [facility] BNP 18 <=100 pcg/mL LAB CHEMISTRY METHOD 10/05/2024 11:36 PM EDT [facility] Blood Venous blood specimen / Unknown Venipuncture / Unknown 10/05/2024 10:36 PM EDT 10/05/2024 10:58 PM EDT Sandra Polanco DO LAB BLOOD ORDERABLES [place] Result Performing Organization Address [facility]/ZIP Co de Phone Number [facility] [address] [place] [address], [place] [phone] * ECG 12 lead (10/05/2024 10:26 PM EDT) Only the most recent of2 resultswithin the time period is included. [facility] Ventricular Rate ECG 79 BPM GEMUSE Atrial Rate 79 BPM GEMUSE P-R Interval 160 ms GEMUSE QRS Duration 70 ms GEMUSE Q-T Interval 370 ms GEMUSE QTc 424 ms GEMUSE P Wave [place] 63 degrees GEMUSE R [place] 19 degrees GEMUSE T [place] 48 degrees GEMUSE ECG Interpretation Normal sinus rhythm Normal ECG When compared with ECG of 05-OCT-2024 19:59, No significant change was found Confirmed by DANIELE DOUGLAS ([id number]) on 10/08/2024 9:22:52 AM GEMUSE 10/05/2024 10:2 6 PM EDT 10/08/2024 9:22 AM EDT us Sandra Polanco DO ECG ORDERABLES Final Res ult Performing Organization Address [facility] Co de Phone Number GEMUSE * (ABNORMAL) Manual differential (10/05/2024 8:06 PM EDT) [facility] Neutrophils % 64.0 % LAB HEMETOLOGY METHOD 10/05/2024 9:05 PM EDT [facility] Lymphocytes % 25.0 % LAB HEMETOLOGY METHOD 10/05/2024 9:05 PM EDT [facility] Monocytes % 10.0 % LAB HEMETOLOGY METHOD 10/05/2024 9:05 PM EDT [facility] Eosinophils % 0.0 % LAB HEMETOLOGY METHOD 10/05/2024 9:[address] [facility] Basophils % 0.0 % LAB HEMETOLOGY METHOD 10/05/2024 9:[address] [facility] Myelocytes % 2.0(H) % LAB HEMETOLOGY METHOD 10/05/2024 9:[address] [facility] Neutrophils Absolute Manual 9.79(H) 1.50 - 7.00 K/mcL LAB HEMETOLOGY METHOD 10/05/2024 9:[address] [facility] Lymphocytes Absolute 3.83 1.00 - 5.00 K/mcL LAB HEMETOLOGY METHOD 10/05/2024 9:[address] [facility] Monocytes Absolute Manual 1.53(H) 0.20 - 1.00 K/mcL LAB HEMETOLOGY METHOD 10/05/2024 9:[address] [facility] Eosinophils Absolute Manual 0.00 0.00 - 0.50 K/mcL LAB HEMETOLOGY METHOD 10/05/2024 9:[address] [facility] Basophils Absolute Manual 0.00 0.00 - 0.20 K/mcL LAB HEMETOLOGY METHOD 10/05/2024 9:[address] [facility] Myelocytes Absolute Manual 0.31(H) 0.00 - 0.00 K/mcL LAB HEMETOLOGY METHOD 10/05/2024 9:[address] [facility] Rbc Morphology Present( A) Consistent with indices, Normal for [place] LAB HEMETOLOGY METHOD 10/05/2024 9:[address] [facility] Comment:RBC: Morphology agre es with CBC Platelet Morphology - WAM See Note(A) Normal LAB HEMETOLOGY METHOD 10/05/2024 9:[address] [facility] Comment:PLT: Normal Polychromasia Present Present( A) (none) LAB HEMETOLOGY METHOD 10/05/2024 9:[address] [facility] Blood Venous blood specimen / Unknown Venipuncture / Unknown 10/05/2024 8:06 PM EDT 10/05/2024 8:33 PM EDT us Sandra Polanco LAB BLOOD ORDERABLES [place] Result Performing Organization Address [facility]/ZIP Co de Phone Number [facility] [address] [place] [address], [place] [phone] * Type and screen (10/05/2024 8:06 PM EDT) ABO Group O 10/05/2024 9:07 PM EDT [facility] Rh Type Positive 10/05/2024 9:07 PM EDT [facility] Antibody Screen Negative 10/05/2024 9:07 PM EDT [facility] Blood Venous blood specimen / Unknown Venipuncture / Unknown 10/05/2024 8:06 PM EDT 10/05/2024 8:29 PM EDT Sandra Baez Dennis Polanco [facility] BLOOD BANK TEST ORDER JOSEFINA Final Result Performing Organization Address [facility] de Phone Number [facility] [address] [place] [address], [place] [phone] * Magnesium (10/05/2024 8:06 PM EDT) Magnesium 2.1 1.9 - 2.6 mg/dL LAB CHEMISTRY METHOD 10/05/2024 8:53 PM EDT [facility] Blood Venous blood specimen / Unknown Venipuncture / Unknown 10/05/2024 8:06 PM EDT 10/05/2024 8:29 PM EDT us Sandra Baez Dennis Polanco LAB BLOOD ORDERABLES [place] Result [facility] [address] [place] [address], [place] [phone] * Lipase (10/05/2024 8:06 PM EDT) [facility] Lipase 35 13 - 75 unit/L LAB CHEMISTRY METHOD 10/05/2024 8:53 PM EDT [facility] Blood Venous blood specimen / Unknown Venipuncture / Unknown 10/05/2024 8:06 PM EDT 10/05/2024 8:29 PM EDT Sandra Polanco DO LAB BLOOD ORDERABLES [place] Result [facility] [address] [place] [address], [place] [phone] * (ABNORMAL) Comprehensive metabolic panel (10/05/2024 8:06 PM EDT) Only the most recent of2 resultswithin the time period is included. [facility] Sodium 130(L) 133 - 145 mmol/L LAB CHEMISTRY METHOD 10/05/2024 8:[address] [facility] Potassium 4.8 3.5 - 5.5 mmol/L LAB CHEMISTRY METHOD 10/05/2024 8:[address] [facility] Chloride 99 96 - 110 mmol/L LAB CHEMISTRY METHOD 10/05/2024 8:[address] [facility] CO2 24 21 - 32 mmol/L LAB CHEMISTRY METHOD 10/05/2024 8:[address] [facility] Anion Gap 7 3 - 11 LAB CHEMISTRY METHOD 10/05/2024 8:[address] [facility] Glucose 119(H) 70 - 100 mg/dL LAB CHEMISTRY METHOD 10/05/2024 8:[address] [facility] BUN 9 5 - 25 mg/dL LAB CHEMISTRY METHOD 10/05/2024 8:[address] [facility] Creatinine 0.68 0.50 - 1.10 mg/dL LAB CHEMISTRY METHOD 10/05/2024 8:[address] [facility] eGFR 101 >=60 mL/min/1. 73m2 LAB CHEMISTRY METHOD 10/05/2024 8:[address] [facility] Comment:Calculation based on the??Chronic Kidney Disease Epidemiology Collaboration (CKD-EPI) equation refit??without adjustment for race. BUN/Creatinine Ratio 13.2 LAB CHEMISTRY METHOD 10/05/2024 8:[address] [facility] Calcium 9.0 8.5 - 10.5 mg/dL LAB CHEMISTRY METHOD 10/05/2024 8:[address] [facility] AST (SGOT) 28 10 - 42 unit/L LAB CHEMISTRY METHOD 10/05/2024 8:[address] [facility] ALT (SGPT) 35 10 - 60 unit/L LAB CHEMISTRY METHOD 10/05/2024 8:[address] [facility] Alkaline Phosphatase 121 42 - 121 unit/L LAB CHEMISTRY METHOD 10/05/2024 8:[address] [facility] Total Protein 6.3 6.0 - 8.0 g/dL LAB CHEMISTRY METHOD 10/05/2024 8:[address] [facility] Albumin 3.2 3.2 - 5.0 g/dL LAB CHEMISTRY METHOD 10/05/2024 8:[address] [facility] Total Bilirubin 0.4 0.0 - 1.4 mg/dL LAB CHEMISTRY METHOD 10/05/2024 8:[address] [facility] Blood Venous blood specimen / Unknown Venipuncture / Unknown 10/05/2024 8:06 PM EDT 10/05/2024 8:29 PM EDT Sandra Polanco DO LAB BLOOD ORDERABLES [place] Result [facility] [address] [place] [address], [place] [phone] * (ABNORMAL) RBC morphology review (10/05/2024 11:10 AM EDT) Rbc Morphology See comment( A) Consistent with indices, Normal for LAB HEMETOLOGY METHOD 10/05/2024 2:32 PM EDT [facility] Comment:RBC: Morphology agre es with CBC Platelet Morphology - WAM See Note(A) Normal LAB HEMETOLOGY METHOD 10/05/2024 2:32 PM EDT [facility] Comment:PLT: Large platelets seen Giant platelets seen Blood Venous blood specimen / Unknown Venipuncture / Unknown 10/05/2024 11:10 AM EDT 10/05/2024 11:10 AM EDT Sharon Arce MD LAB BLOOD ORDERABLES Final Resu lt Performing Organization Address [facility] Co de Phone Number [facility] [address] [place] [address], * (ABNORMAL) Iron and TIBC (10/05/2024 11:10 AM EDT) Pathologist [facility] Iron 38(L) 40 - 150 mcg/dL LAB CHEMISTRY METHOD 10/05/2024 4:39 PM EDT [facility] TIBC 348 250 - 450 mcg/dL LAB CHEMISTRY METHOD 10/05/2024 4:39 PM EDT [facility] Iron Saturation 11(L) 15 - 50 % LAB CHEMISTRY METHOD 10/05/2024 4:39 PM EDT [facility] Blood Venous blood specimen / Unknown Venipuncture / Unknown 10/05/2024 11:10 AM EDT 10/05/2024 11:10 AM EDT Sharon Arce MD LAB BLOOD ORDERABLES Final Resu lt Performing Organization Address [facility]/ZIP Co de Phone Number [facility] [address] [place] [address], [place] [phone] * Hemoglobin A1c (10/05/2024 11:10 AM EDT) [facility] Hemoglobin A1C 6.0 <6.5 % LAB CHEMISTRY METHOD 10/05/2024 11:02 PM EDT [facility] Mean Bld Glu Estim. 126 mg/dL LAB CHEMISTRY METHOD 10/05/2024 11:02 PM EDT [facility] Blood Venous blood specimen / Unknown Venipuncture / Unknown 10/05/2024 11:10 AM EDT 10/05/2024 11:10 AM EDT Sharon Arce MD LAB BLOOD ORDERABLES Final Resu lt Performing Organization Address [facility]/ZIP Co de Phone Number [facility] [address] [place] [address], [place] [phone] * (ABNORMAL) Ferritin (10/05/2024 11:10 AM EDT) [facility] Ferritin 374(H) 8 - 252 ng/mL LAB CHEMISTRY METHOD 10/05/2024 4:39 PM EDT [facility] Blood Venous blood specimen / Unknown Venipuncture / Unknown 10/05/2024 11:10 AM EDT 10/05/2024 11:10 AM EDT Sharon Arce MD LAB BLOOD ORDERABLES Final Resu lt Performing Organization Address [facility]/ZIP Co de Phone Number [facility] [address] [place] [address], [place] [phone] * Lipid panel with reflex to direct LDL (06/15/2024 9:28 AM EST) [facility] Cholesterol 128 0 - 200 mg/dL LAB CHEMISTRY METHOD 06/15/2024 1:58 PM EST [facility] Triglycerides 138 0 - 150 mg/dL LAB CHEMISTRY METHOD 06/15/2024 1:58 PM [facility] HDL 48 >=40 mg/dL LAB CHEMISTRY METHOD 06/15/2024 1:58 PM [facility] LDL Calculated 52 0 - 100 mg/dL LAB CHEMISTRY METHOD 06/15/2024 1:58 PM [facility] VLDL Cholesterol Cam 27.6 mg/dL LAB CHEMISTRY METHOD 06/15/2024 1:58 PM [facility] Non HDL Chol. (LDL+VLDL) 80 <145 mg/dL LAB CHEMISTRY METHOD 06/15/2024 1:58 PM [facility] Chol/HDL Ratio 2.7 0.0 - 4.4 LAB CHEMISTRY METHOD 06/15/2024 1:58 PM [facility] Blood Venous blood specimen / Unknown Venipuncture / Unknown 06/15/2024 9:28 AM EST 06/15/2024 9:28 AM EST Radha Mcgregor NP LAB BLOOD ORDERABLES Final Resu lt [facility] [address] [place] [address], * Colonoscopy (04/11/2024) Colonoscopy Abstracted, No Interpretation Anatomical Region Laterality Modality Other us Historical Provider HEALTH MAINTENANCE Final Result * [facility]STA SCREENING DIGITAL (11/25/2023 1:13 PM EDT) Anatomical Region Laterality Modality Mammography 11/25/2023 10:4 4 AM EDT Narrative 11/25/2023 1:13 PM EDT [facility] Diagnostic Imaging Department [address] [place] [id number] Patient: ??WILFRED GUERRA ?/Age/Sex: 1965 - 57 - F Unit#: ??[id number] ? Location/Status: ??SPDIMAM/REG CLI ? Mnemonic/Ordering Site: ??DIGSC/SPMAM Ordering Physician: ??SHARON ARCE MD [facility] Screening Digital - 11/25/23 - Report Status:Signed EXAM: [facility] Screening Digital EXAM DATE AND TIME: 11/25/2023 11:16 AM HISTORY: ??Screening. COMPARISON: ??10/03/21, 09/21/20, 03/16/19 TECHNIQUE: Bilateral digital breast tomosynthesis was performed in the CC and MLO projections. Computer aided detection with [employer] 3D 3.1 was employed. TISSUE DENSITY: c. [...] Procedure Note Lucia Elias MD - 02/21/2024 [facility] Diagnostic Imaging Department [address] [place] [id number] Patient: CHARLIEWILFREDMoises GreenO.B./Age/Sex: 1965 - 57 - F Unit#: [id number] Location/Status: [facility] CLI Mnemonic/Ordering Site: [facility] Ordering Physician: SHARON ARCE MD [facility] Screening Digital - 11/25/23 - Report Status:Signed EXAM: [facility] Screening Digital EXAM DATE AND TIME: 11/25/2023 11:16 AM HISTORY: Screening. COMPARISON: 10/03/21, 09/21/20, 03/16/19 TECHNIQUE: Bilateral digital breast tomosynthesis was performed in the CCand MLO projections. Computer aided detection with [employer] 3D 3.1was employed. TISSUE DENSITY: c. The [...] Health Maintenance Insurance MEDICAID - [place] MEDICARE [facility] MEDICARE Advance Directives Documents on File Type Date Recorded Patient Stain Sprayer Expl anation Health Care Decision (hx) 09/20/2018 [...] (hx) 09/20/2018 AD SLAUGHTER DIRECTIVE Care Teams Materials Associate Relationship Specialty Start Date End Date Sharon Arce MD [address] [place] [id number] PCP - General Internal Medicine 06/15/24
== END 2024-12-14 11:18 | disposition home or self-care (01) ==
LOC: HO.HOS 10:42
PROVIDERS: Visit Provider Orthopaedic Surgery
DX: Z96.642 Presence of left artificial hip joint (principal)
CPT/HCPCS: 99024

== ENCOUNTER → 2024-12-14 10:41 | Outpatient (BNVA) | payer MEDICARE, MEDICAID, SELFPAY | PROVIDERS: Visit Provider Orthopaedic Surgery | DX: Z47.1 Aftercare following joint replacement surgery (principal); Z96.642 Presence of left artificial hip joint | CPT/HCPCS: 99212 ==